=== PATIENT | female | born 1990 | race Caucasian/White ===

== ENCOUNTER 2024-03-03 09:27 | Emergency (ER) | payer MEDICAID, SELFPAY ==
[2024-03-03 09:35] VITALS: BMI 22.1
[2024-03-03 09:42] VITALS: BP 180/98; PULSE 110; RESP 19; TEMP 37.3; O2SAT 98
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
[2024-03-03 13:30] VITALS: BP 139/76; PULSE 99; RESP 19; TEMP 37.1; O2SAT 98
--- NOTE | 2024-03-03 13:53 | PC.NURSE ---
All restraints removed at this time. Patient up to bedside commode. Patient placed in gown and was provided with food and drink. Sitter remains observant.
[2024-03-03 14:07] LABS: HCG Qualitative,Urine Negative
[2024-03-03 14:17] LABS: Alcohol, Urine Negative (Negative); Amphetamine/Methamp Scrn,U Positive (Negative); Barbiturate Screen,Urine Negative (Negative); Benzodiazepines Screen,Urine Negative (Negative); Benzoylecgonine Screen, Ur Negative (Negative); Fentanyl Screen,Urine Negative (Negative); Opiate Screen,Urine Negative (Negative); THC Screen,Urine Negative (Negative)
--- NOTE | 2024-03-03 18:18 | PD.EDADDENDU ---
Emergency Room Addendum <Chanda Hidalgo - Last Filed: 03/03/24 18:20> Addendum Narrative: 1800: Care assumed from Dr. Millan, the previous shift emergency physician. Past medical, surgical, social and family history reviewed. Vitals and home medications reviewed. I will assume the care of the patient at this time, pending psychiatric placement, patient on a 5150 hold. The patient was placed in ED observation care at 03/03/2024 at 1800 hours. The patient was placed in ED observation care because of undifferentiated decompensated behavioral health evaluation, no behavioral health bed available. The patients past medical history, social history, and family history were reviewed. The plan of care will include serial examinations. Please refer to the emergency department record for history and examination.? While in ED observation the patient will have access to water, food, and personal hygiene. If the patient takes home medication(s), they will be continued in ED observation. Physical exam by me shows patient under no acute distress at this time. <Juan Fink MD - Last Filed: 03/04/24 05:33> Addendum Narrative: 1800: Care assumed from Dr. Millan, the previous shift emergency physician. Past medical, surgical, social and family history reviewed. Vitals and home medications reviewed. I will assume the care of the patient at this time, pending psychiatric placement, patient on a 5150 hold. The patient was placed in ED observation care at 03/03/2024 at 1800 hours. The patient was placed in ED observation care because of undifferentiated decompensated behavioral health evaluation, no behavioral health bed available. The patients past medical history, social history, and family history were reviewed. The plan of care will include serial examinations. Please refer to the emergency department record for history and examination.? While in ED observation the patient will have access to water, food, and personal hygiene. If the patient takes home medication(s), they will be continued in ED observation. Physical exam by me shows patient under no acute distress at this time. Overnight patient became extremely agitated, screaming, very disruptive, and a danger to self after she was not allowed to have a cigarette. She required chemical sedation. she has been sleeping without issue for the rest of my encounter. 0600: Signed out to italia GARVEY, Dr. Millan, pending crisis team assessment and final disposition.
[2024-03-03 18:21] VITALS: BP 126/67; PULSE 101; RESP 18; TEMP 37.1; O2SAT 99
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
[2024-03-03 20:30] VITALS: BP 127/80; PULSE 103; RESP 19; TEMP 37.3; O2SAT 98
[2024-03-03 22:37] VITALS: BP 134/89; PULSE 105; RESP 19; TEMP 36.9; O2SAT 96
[2024-03-04] MEDS: HALOPERIDOL LACT INJ 5 MG/ML VIAL IM ×2 (00:31→12:55)
[2024-03-04] MEDS: DiphenhydrAMINE INJ 50 MG/ML VIAL IM ×2 (00:31→12:55)
[2024-03-04] MEDS: LORazepam 2 MG/ML VIAL IM ×2 (00:31→12:48)
--- NOTE | 2024-03-04 05:39 | PC.NURSE ---
Went in room to discharge pt. Pt states she's not ready to leave and would like to speak to doctor about why she didn't get a chest XR bc she feels that she is not ok to go home. MD unavailable at the moment - will notify when he is. journeyman pipe fitter Orlin informed.
[2024-03-04 06:18] VITALS: BP 145/98; PULSE 115; RESP 18; TEMP 37.3; O2SAT 96
--- NOTE | 2024-03-04 06:26 | PC.NURSE ---
Pt up to restroom, accompanied by sitter. Steady gait observed.
--- NOTE | 2024-03-04 06:34 | EDNOTE_ITS ---
Emergency Room Addendum <Margaret Siddiqui - Last Filed: 03/04/24 10:17> Addendum Narrative: [address] Fink, the previous shift emergency physician. Past medical, surgical, social and family history reviewed. Vitals and home medications reviewed. Results and treatment plan discussed. The patient was placed in ED observation care at 0600 03/04/2024, pending [facility] facility placement. Please refer to the emergency department record for history and examination.? While in ED observation the pt will have access to water, food, and personal hygiene. If the pt takes home medication(s), they will be continued in ED observation. <Fletcher Millan MD - Last Filed: 03/04/24 10:19> Addendum Narrative: [address] Fink, the previous shift emergency physician. Past medical, surgical, social and family history reviewed. Vitals and home medications reviewed. Results and treatment plan discussed. The patient was placed in ED observation care at 0600 03/04/2024, pending LPS facility placement. Please refer to the emergency department record for history and examination.? While in ED observation the pt will have access to water, food, and personal hygiene. If the pt takes home medication(s), they will be continued in ED observation. The patient was signed out to me from at 6:00 this morning pending [facility] placement. The patient is on 5150 for suicidal ideation. She tested positive for methamphetamine. 10:18 AM, on March 04, 2024, I am being notified by jannette, director of social media marketing/mental health that the patient has been accepted at [facility] Dr. Mcelroy. The patient is stable for transfer by ambulance Diagnosis: Suicidal ideation Positive methamphetamine
--- NOTE | 2024-03-04 07:40 | PC.NURSE ---
report given from exhibits manager nurse joan. pt is on 5051 hold and pending placement. pt is now sleeping on [place] no distress noted. pt is responsive to verbal. pt was medicated earlier this am due to her behavior and harm to self and others. meal tray ordered by doctor wendy.
--- NOTE | 2024-03-04 08:06 | PC.CC ---
Addendum entered by Piotr Medellin II 03/04/24 13:32: Pt refusing to get on [facility] for transport. ASW attempted to intervene and meet with pt. Pt refused to engage with ASW. Pt began to become combative with staff, pt given Benadryl, Haldol and Ativan. Bedside RN Dena provided update to Susy with [facility]. 1321-ASW spoke with Susy with [facility], who states they will accept pt despite medication being given due to the distance pt will need to travel prior to arrival. Addendum entered by Piotr Medellin II 03/04/24 10:36: Pt accepted to [facility], Dr. Mcelroy, to [facility]. 1026-Call to [facility], Transport ETA 1230. PCS/FS and packet attached to pts chart. Bedside RN and ED provided updated. Original Note: Pt Ruth Harmon is a 33 yr old female, brought to ED on 03/03/24 by [employer] on 5150 hold for DTS. Pt reassessed and decision made to uphold 5150. Clinical packet sent to [facility] facilities on 03/03/24 with no accepting facility. Updated clinical packet sent out to LPS facilities this AM 03/04/24. 0809-Call from Alice with [facility] for Psychiatry-referral has been declined due to pts acuity, request that updated packet be sent in a few days to determine if pts acuity has resolved.
--- NOTE | 2024-03-04 08:22 | PC.NURSE ---
pt refused vs at this time.
--- NOTE | 2024-03-04 08:52 | PC.NURSE ---
Pt accepted to [facility] facility unit [place]. Glenny is the person who accepted transfer along with doctor Lilibeth. eta for transport unknown at this time. social service aware of facility acceptance and will set up transport.
[2024-03-04 11:30] VITALS: BP 114/78; PULSE 86; RESP 18; TEMP 36.6; O2SAT 95
--- NOTE | 2024-03-04 13:00 | PC.NURSE ---
pt refusing to leave with ems so doctor nancy ordered medication to help pt relax and not be so aggressive.
--- NOTE | 2024-03-04 13:13 | PC.NURSE ---
report given to Susy ching at [facility] unit. nurse aware that medication were given prior to leaving facility due to pt being aggressive refusing to leave facility with ems. nurse will resume care. pt left with ems
== END 2024-03-04 13:05 ==
PROVIDERS: Emergency Provider Emergency Medicine
DX: R45.851 Suicidal ideations (principal); F31.9 Bipolar disorder, unspecified
CPT/HCPCS: 80307; 80320; 81025; 96127; 96372; 99291; J1200; J1630; J2060; G0480

== ENCOUNTER 2024-04-07 12:57 | Emergency (ER) | payer MEDICAID, SELFPAY ==
--- NOTE | 2024-04-07 13:10 | PC.NURSE ---
WHILE ASKING PT QUESTIONS FOR [place] SCALE SHE REFUSED TO COMPLETE THE QUESTIONS. SO UNABLE TO COMPLETE FORM
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
--- NOTE | 2024-04-07 13:37 | PC.NURSE ---
DR LOPES AT BEDSIDE TO SEE PT
[2024-04-07] MEDS: HALOPERIDOL LACT INJ 5 MG/ML VIAL IM (14:04)
[2024-04-07] MEDS: DiphenhydrAMINE INJ 50 MG/ML VIAL IM (14:04)
[2024-04-07] MEDS: LORazepam 2 MG/ML VIAL IM (14:04)
--- NOTE | 2024-04-07 14:04 | PC.NURSE ---
PT ACTING ERRATIC AND YELLING AT STAFF. PT ATTEMPTING TO LEAVE AND BEGAN HITTING ROOM DOOR. CODE PAP[employer] CALLED. PT MEDICATED PER DOCTORS ORDERS
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
[2024-04-07 14:59] VITALS: BP 128/76; PULSE 100; RESP 18; TEMP 37.1; O2SAT 99
[2024-04-07 16:00] VITALS: BP 125/72; PULSE 78; RESP 16; TEMP 36.8; O2SAT 99
[2024-04-07 18:00] VITALS: BP 130/80; PULSE 85; RESP 16; TEMP 36.7
[2024-04-07 19:10] LABS: HCG Qualitative,Urine Negative
--- NOTE | 2024-04-07 19:13 | EDNOTE_ITS ---
Emergency Room Addendum Addendum Narrative: 1800: Care assumed from Dr. Millan, the previous shift emergency physician. Past medical, surgical, social and family history reviewed. Vitals and home medications reviewed. I will assume the care of the patient at this time, pending psychiatric placement, patient on a 5150 hold. The patient continues on ED observation because of undifferentiated decompensated behavioral health evaluation, no behavioral health bed available. The patients past medical history, social history, and family history were reviewed. The plan of care will include serial examinations. Please refer to the emergency department record for history and examination. While in ED observation the patient will have access to water, food, and personal hygiene. If the patient takes home medication(s), they will be continued in ED observation. Physical exam by me shows patient under no acute distress at this time. 0600: [facility], pending serial examinations and final disposition. MD Attestation MD Attestation Scribe Attestation: I, Lakshmi Hunt, am scribing for and in the presence of Dr. Clemens. Provider Notation: Although this document has been carefully reviewed, there may still be some phonetic and other typographical errors. These errors are purely grammatical due to imperfections in the software program and should not be construed in any way to compromise the substance of the patient's medical care during this visit.
[2024-04-07 21:16] LABS: Alcohol, Urine Negative (Negative); Amphetamine/Methamp Scrn,U Positive (Negative); Barbiturate Screen,Urine Negative (Negative); Benzodiazepines Screen,Urine Negative (Negative); Benzoylecgonine Screen, Ur Negative (Negative); Fentanyl Screen,Urine Negative (Negative); Opiate Screen,Urine Negative (Negative); THC Screen,Urine Positive (Negative)
--- NOTE | 2024-04-07 21:25 | PC.NURSE ---
Pt's blood drawn at this time. Pt provided with food and juice.
[2024-04-07 22:17] LABS: Basophils # (Auto) 0.1 Thou/mm3 (0.0-0.2); Basophils % (Auto) 1 % (0-2.5); Eosinophils # (Auto) 0.3 Thou/mm3 (0.0-0.5); Eosinophils % (Auto) 4 % (0-10); Hematocrit 33.2 % (36.0-46.0); Hemoglobin 11.5 g/dL (12.0-16.0); Immature Granulocytes % (Auto) 0 % (0-0); Immature Granulocytes Auto 0.01 Thou/mm3 (0.00-0.00); Lymphocytes # (Auto) 2.2 Thou/mm3 (1.0-4.8); Lymphocytes % (Auto) 31 % (10-50); Mean Corpuscular HGB Conc 34.6 g/dl (31.0-37.0); Mean Corpuscular Hemoglobin 29.3 pg (25.0-35.0); Mean Corpuscular Volume 85 fL (80-100); Monocytes # (Auto) 1.1 Thou/mm3 (0.0-0.8); Monocytes % (Auto) 16 % (0-12); Neutrophils # (Auto) 3.4 Thou/mm3 (1.8-7.7); Neutrophils % (Auto) 49 % (37-80); Nucleated Red Blood Cell % 0 /100 WBC (0); Platelet Count 263 Thou/mm3 (140-440); Red Blood Count 3.93 Miln/mm3 (4.00-5.20); White Blood Count 7.1 Thou/mm3 (3.6-11.0)
[2024-04-07 23:10] LABS: Acetaminophen < 2.0 mcg/mL (10.0-20.0); Alanine Aminotransferase 26 U/L (10-49); Albumin, Serum 3.8 gm/dL (3.5-5.0); Albumin/Globulin Ratio 1.6 (1.2-2.2); Alkaline Phosphatase 82 U/L (46-116); Anion Gap 8 (7-16); Aspartate Amino Transferase 47 U/L (0-34); BUN/Creatinine Ratio 15 Ratio (12-20); Blood Urea Nitrogen 9 mg/dL (9-23); Calcium (Corrected) 9.2 mg/dL (8.5-10.1); Carbon Dioxide 23.8 mMol/L (20.0-31.0); Chloride 109 mMol/L (98-107); Creatinine (Component) 0.6 mg/dL (0.6-1.3); Estimated Creatinine Clearance 116.7 mL/min (>60); Globulin 2.4 gm/dL (2.3-3.5); Glucose 82 mg/dL (74-106); Osmolality,Calculated 278 (275-295); Potassium 3.6 mMol/L (3.4-5.1); Salicylate < 3.0 mg/dL; Sodium 141 mMol/L (136-145); Thyroid Stimulating Hormone 1.27 uIU/mL (0.55-4.78); Total Protein 6.2 gm/dL (5.7-8.2); eGFR > 60 See Note
[2024-04-07 23:11] LABS: Free T4 (Free Thyroxine) 1.24 ng/dL (0.89-1.76)
[2024-04-08 04:00] VITALS: BP 116/75; PULSE 82; RESP 17; TEMP 36.8; O2SAT 98
--- NOTE | 2024-04-08 04:40 | PC.NURSE ---
Pt provided with snacks and water at this time. Pt calm and appropriate.
--- NOTE | 2024-04-08 06:00 | PD.EDADDENDU ---
Emergency Room Addendum <Margaret Siddiqui - Last Filed: 04/08/24 07:04> Addendum Narrative: 0600: Care assumed from Dr. Clemens, the previous shift emergency physician. Past medical, surgical, social and family history reviewed. Vitals and home medications reviewed. I will assume the care of the patient at this time, pending mental health evaluation. Please refer to the emergency department record for history and examination from initial visit.? <Fletcher Millan MD - Last Filed: 04/08/24 11:52> Addendum Narrative: 0600: Care assumed from Dr. Clemens, the previous shift emergency physician. Past medical, surgical, social and family history reviewed. Vitals and home medications reviewed. I will assume the care of the patient at this time, pending mental health evaluation. Please refer to the emergency department record for history and examination from initial visit. CBC is negative. CMP negative. Aspirin and Tylenol level are negative. test is negative. Tox screen is positive for methamphetamine and marijuana. 11:50 AM, I am being notified by the sr. social media & mobile manager/mental health Justen that the patient can be discharged home. The patient is alert awake oriented x 4 GCS of 15. Much more cooperative and much Calmer. And no delusional. No hallucination at this time. Diagnosis: Methamphetamine induced psychosis 5150 been cleared History of schizophrenia chronic Condition: Stable and improved DC instruction: Follow the instruction given you by the mental health instrument worker. Follow-up with your medical doctor also. Return to nearest ER if any problem.
[2024-04-08 07:35] VITALS: BP 114/73; PULSE 75; RESP 16; TEMP 36.9; O2SAT 98
--- NOTE | 2024-04-08 07:40 | PC.NURSE ---
provided pt with snack,
--- NOTE | 2024-04-08 08:24 | PC.NURSE ---
privided pt with breakfast tray, ate 100%, pt calm
[2024-04-08 10:49] VITALS: BP 117/72; PULSE 96; RESP 16; TEMP 37.3; O2SAT 96
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
--- NOTE | 2024-04-08 12:00 | PC.NURSE ---
PT CLEARED BY CLINICAL IMMUNOLOGIST FOR D/C. PT FED AND HYDRATED PRIOR TO D/C. BELONGINGS GIVEN BACK TO PT.
[2024-04-08 12:02] VITALS: BP 125/63; PULSE 65; RESP 18; TEMP 36.6; O2SAT 99
== END 2024-04-08 12:04 | disposition home or self-care (01) ==
PROVIDERS: Emergency Medicine; Emergency Provider Emergency Medicine; PCP Family Medicine
DX: R45.851 Suicidal ideations (principal); F20.9 Schizophrenia, unspecified; F31.9 Bipolar disorder, unspecified; F15.959 Other stimulant use, unspecified with stimulant-induced psychotic disorder, unspecified
CPT/HCPCS: 36415; 80053; 80307; 80320; 80329; 81025; 84439; 84443; 85025; 90839; 96127; 96372; 99284; J1200; J1630; J2060; G0480

== ENCOUNTER 2024-04-29 20:46 | Emergency (ER) | payer MEDICAID, SELFPAY ==
--- NOTE | 2024-04-29 21:39 | PD.EDPSYCH ---
ED Psych RME/HPI General Stated Complaint: 5149 Time Seen by Provider: 04/29/24 20:52 Arrival date/time: 04/29/24 20:46 RME / HPI RME / HPI Narrative: 33 yo female patient brought in by PD on 5150 hold. Patient screaming obscenities at police and staff, agitated, thrashing about. Related Data Home Medications ?Medication ?Instructions ?Recorded ?Confirmed hydroxyzine pamoate 50 mg capsule 50 mg PO BID #0 caps 10/17/15 (Vistaril) lamotrigine 150 mg tablet 150 mg PO BID #0 tabs 10/17/15 (Lamictal) venlafaxine 75 mg capsule,extended 75 mg PO QDAY ##0 10/17/15 release 24 hr (Effexor XR) zolpidem 10 mg tablet (Ambien) 10 mg PO HS #0 tabs 10/17/15 Previous Rx's ?Medication ?Instructions ?Recorded lorazepam 1 mg tablet 1 mg PO Q6HR PRN ANXIETY #10 tabs 10/17/15 Allergies Allergy/AdvReac Type Severity Reaction Status Date / Time No Known Allergies Allergy Verified 11/09/18 10:05 Course Orders Category Date Time Status DiphenhydrAMINE INJ [Benadryl Inj] Med 04/29/24 20:52 Discontinued 50 mg IM X1 ONE Haloperidol Lactate [Haldol Inj] Med 04/29/24 20:52 Discontinued 5 mg IM X1 ONE LORazepam [Ativan Inj] Med 04/29/24 20:52 Discontinued 2 mg IM X1 ONE Psych Medications / Prescriptions Medication administrations:: Medication Administration History Discontinued Medications Diphenhydramine HCl (Diphenhydramine Inj 50 Mg/Ml Vial) 50 mg IM X1 ONE Stop: 04/29/24 20:53 Haloperidol Lactate (Haloperidol Lact Inj 5 Mg/Ml Vial) 5 mg IM X1 ONE Stop: 04/29/24 20:53 Lorazepam (Lorazepam 2 Mg/Ml Vial) 2 mg IM X1 ONE Stop: 04/29/24 20:53 Discharge Plan Prescriptions/Referrals Prescriptions/Med Rec: No Action lamotrigine [Lamictal] 150 MG tablet 150 mg PO BID Qty: 0 venlafaxine [Effexor XR] 75 MG capsule,extended release 24hr 75 mg PO QDAY Qty: 0 hydroxyzine pamoate [Vistaril] 50 MG capsule 50 mg PO BID Qty: 0 zolpidem [Ambien] 10 MG tablet 10 mg PO HS Qty: 0 lorazepam 1 MG tablet 1 mg PO Q6HR PRN (Reason: ANXIETY) Qty: 10 0RF Patient/Caregiver Discharge Instructions Print Language: Israeli
[2024-04-29] MEDS: LORazepam 2 MG/ML VIAL IM (21:46)
[2024-04-29] MEDS: DiphenhydrAMINE INJ 50 MG/ML VIAL IM (21:46)
[2024-04-29] MEDS: HALOPERIDOL LACT INJ 5 MG/ML VIAL IM (21:46)
[2024-04-29 21:54] VITALS: BP 134/81; RESP 18; O2SAT 97
[2024-04-29 22:16] VITALS: BP 134/81; PULSE 99; RESP 18; O2SAT 97
--- NOTE | 2024-04-29 22:30 | PC.NURSE ---
Pt requesting to wait until medication to take effect, before getting blood
--- NOTE | 2024-04-29 23:01 | PD.EDADDENDU ---
Emergency Room Addendum Addendum Narrative: 2300: Care assumed from Dr. Wong. Past medical, surgical, social and family history reviewed. Vitals and home medications reviewed. Results and treatment plan discussed. I will assume the care of the patient at this time and will follow the patient, pending medical clearance for crisis evaluation. Please refer to the emergency department record for history and examination from initial visit. OBSERVATION NOTE: The patient was placed in ED observation care at 04/29/24 at 2300 hours. The patient was placed in ED observation care because of pending medical clearance for crisis evaluation. The patients past medical history, social history, and family history were reviewed. The plan of care will include serial examinations. 0600: Care signed out to the next oncoming provider. Past medical, surgical, social and family history reviewed. Vitals and home medications reviewed. Results and treatment plan discussed. They will assume the care of the patient at this time and will follow the patient, pending medical clearance for crisis evaluation.
[2024-04-30 04:56] VITALS: BP 117/81; PULSE 88; RESP 18; TEMP 36.7; O2SAT 96
[2024-04-30 05:41] LABS: Alcohol, Blood Medical < 3.0 mg/dL (0-10.0)
[2024-04-30 06:31] LABS: HCG,Qualitative Serum Negative
--- NOTE | 2024-04-30 07:15 | PC.NURSE ---
REPORT RECEIVED AT THIS TIME; PER REPORT, PT HERE FOR 5150 DTS; PT FOUND BY [address] BY PD YELLING THAT SHE WANTED TO KILL HERSELF. PT RECEIVED BENADRYL, LORAZEPAM, AND HALDOL LAST NIGHT; PT ALLOWED ME TO GIVE IM MEDS BUT WAS VERBALLY HOSTILE. PT HAS BEEN SLEEPING EVER SINCE. PMH OF SI IN THE PAST. PT SLEEPING IN BED WITH NO ACUTE DISTRESS NOTED AT THIS TIME.
[2024-04-30 07:45] VITALS: BP 121/83; PULSE 93; RESP 18; TEMP 36.3; O2SAT 95
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
--- NOTE | 2024-04-30 08:14 | PC.SS ---
Addendum entered by LUCA Mendoza 04/30/24 17:28: Late entry: ASW and Dr. Hauser met with the patient as she was declining to engage with solid waste collection worker. ASW to speak with the patient alone. Patient began to engage with ASW and denied SI and HI. Patient also denied audio and visual hallucination. Patient denied history of mental health and denying substance use. Patient reports being independent with ambulation. Patient had meal while in the ED and was able to use facilities. Patient reported she wanted to stay to continue sleeping, patient was explained she cannot remain in the ED. After clinical consultation, with care technical director, Rosy Spivey LCSW, it was decided the patient does not meet criteria for 5150 hold. Patient informed she could return to the community. Declined resources or referral at this time. Addendum entered by LUCA Mendoza 04/30/24 15:25: Per bed side nurse, no copy of 5150 hold in patient chart. Contacted [employer] and spoke with dispatch Chuy who informed patient was brought in for a mental health evaluation but was not placed on [address] [employer] Hauser. Addendum entered by LUCA Mendoza 04/30/24 10:00: ASW made contact with the patient at bed side. Patient appeared to be restless. ASW introduced self, role and reason for contact. During this encounter the patient covered self with blanket, covering face. ASW asked the patient what brought her into the ED and the patient stated I don't know . ASW attempted multiple times to engage the patient, however patient continued covered by blanket, did not wish to engage and continued sleeping. Original Note: solid waste collection worker informed by charge nurse that the patient is pending medical clearance for mental health evaluation. Per MD, the patient was brought in last night by [employer] on a 5150 Hold.
[2024-04-30 10:07] VITALS: BP 112/70; PULSE 100; RESP 18; TEMP 37; O2SAT 97
[2024-04-30 13:19] VITALS: BP 114/79; PULSE 89; RESP 15; TEMP 36.8; O2SAT 96
--- NOTE | 2024-04-30 13:34 | PC.NURSE ---
attempted to wake up pt to collect UA, pt refusing to provide sample.
--- NOTE | 2024-04-30 15:00 | PC.NURSE ---
RN AT BEDSIDE; PT INFORMED AGAIN THAT URINE SAMPLE IS NEEDED FROM PT. PT OFFERED BEDPAN, PT STATED, NO, I DON'T WANT TO. PT OFFERED STRAIGHT CATH TO OBTAIN URINE SAMPLE; PT REPLIED, WHAT? NO. MADE AWARE.
[2024-04-30 15:44] VITALS: BP 117/80; PULSE 102; RESP 17; TEMP 36.8; O2SAT 97
== END 2024-04-30 16:03 | disposition home or self-care (01) ==
PROVIDERS: Emergency Medicine; Emergency Provider Emergency Medicine
DX: R45.1 Restlessness and agitation (principal); F15.10 Other stimulant abuse, uncomplicated
CPT/HCPCS: 36415; 80307; 80320; 84703; 96127; 96372; 99284; J1200; J1630; J2060; G0480

== ENCOUNTER 2024-05-15 15:33 | Emergency (ER) | payer MEDICAID, SELFPAY ==
--- NOTE | 2024-05-15 15:37 | PD.EDADULT ---
ED General RME/HPI General Chief complaint: Suicidal Stated complaint: MENTAL EVAL Time Seen by Provider: 05/15/24 15:36 Arrival date/time: 05/15/24 15:33 CC: 5150 HPI patient presents to the ER via EMS and PD who state the patient received a call, patient was boisterous and has blood on her skin, PD per determine the patient had been poking herself in the scalp tweezers, patient is awake and consider Versed and with sternal rub. PD and EMS state that she is pretending to be asleep. PD reports the patient admitting that she was suicidal. At 1653 patient became belligerent obnoxious once moved into a room. At this time the patient is a potential risk for staff. Will order a B-52 for the patient to become more calm. Related Data Home Medications ?Medication ?Instructions ?Recorded ?Confirmed hydroxyzine pamoate 50 mg capsule 50 mg PO BID #0 caps 10/17/15 (Vistaril) lamotrigine 150 mg tablet 150 mg PO BID #0 tabs 10/17/15 (Lamictal) venlafaxine 75 mg capsule,extended 75 mg PO QDAY ##0 10/17/15 release 24 hr (Effexor XR) zolpidem 10 mg tablet (Ambien) 10 mg PO HS #0 tabs 10/17/15 Previous Rx's ?Medication ?Instructions ?Recorded lorazepam 1 mg tablet 1 mg PO Q6HR PRN ANXIETY #10 tabs 10/17/15 Allergies Allergy/AdvReac Type Severity Reaction Status Date / Time No Known Allergies Allergy Verified 11/09/18 10:05 Review of Systems Review of Systems Narrative Review of Systems: Unable to assess secondary to patient not being cooperative Past Medical History Past Medical History CARDIAC: Negative Congestive Heart Failure RESPIRATORY: Negative Chronic Obstructive Pulmonary Disease (COPD) GENITOURINARY: Negative Renal Disease ENDOCRINE: Negative Diabetes Mellitus Type 1 or Diabetes Mellitus Type 2 PSYCHO/SOCIAL: Positive Bipolar Disorder, Depression, Anxiety, Self-Mutilation and Post Traumatic Stress Disorder Social History SMOKING STATUS: Unknown if ever smoked SUBSTANCE USE: marijuana and methamphetamine ED Exam Narrative Physical exam: [General: Appears not in any acute distress Head normocephalic HEENT: Eyes pupils are PERRLA EOMs are intact mouth pink dry membranes uvula is midline swallow symmetrical phonation is normal. All the subsystems of HEENT are within acceptable limits Neck is supple nontender no JVD Chest equal chest rise nontender to palpation Respiratory: Clear to auscultation no wheezes crackles or rubs CV: Rate rhythm is regular no murmurs rubs or clicks Back: No CVA tenderness no spinous process tenderness from cervical spine thoracic and lumbar spine Skin: Abrasion to the right parietal scalp but no full-thickness lacerations. Otherwise skin appears intact no petechiae rash induration ulceration or crepitus Extremities: Moving all extremity against resistance cap refill less than 2 seconds neurosensory intact Neuro: Awake alert oriented x2, person and place, Glascow coma 15 no focal deficits] Course Quality Measures none Orders Category Date Time Status 4 HR Behavioral Restraints Q15M Care 05/15/24 16:45 Completed 4 HR Behavioral Restraints Q15M Care 05/15/24 20:40 Completed CBC Stat Lab 05/15/24 17:06 Completed CMP [Comprehensive Metabolic Panel] Stat Lab 05/15/24 17:06 Completed DiphenhydrAMINE INJ [Benadryl Inj] Med 05/15/24 16:52 Discontinued 50 mg IM X1 ONE Haloperidol Lactate [Haldol Inj] Med 05/15/24 16:52 Discontinued 5 mg IM X1 ONE LORazepam [Ativan Inj] Med 05/15/24 16:52 Discontinued 2 mg IM X1 ONE Vital Signs Vital signs: Vital Signs Temperature 98.7 F 05/15/24 15:38 Pulse Rate 102 H 05/15/24 15:38 Respiratory Rate 18 05/15/24 15:38 Blood Pressure 143/96 H 05/15/24 15:38 Pulse Oximetry (%) 97 05/15/24 15:38 Oxygen Delivery Method Room Air 05/15/24 15:38 [facility] Patient data External records reviewed:: [facility] previous records and EMS form Clinical information provided by:: patient, EMS and law enforcement Social determinants that could affect healthcare access:: none Patient has the following chronic illnesses:: Severe depression How is presenting disease/condition affected by chronic disease/condition?: caused by Evaluation data The following diagnostics were reviewed and interpreted by me:: other (specify) Lab and/or radiology exams considered but not ordered:: See MDM Interpretation Summary: Suicidal ideation Medications Medications considered but not ordered:: None Medication administrations:: Medication Administration History Discontinued Medications Diphenhydramine HCl (Diphenhydramine Inj 50 Mg/Ml Vial) 50 mg IM X1 ONE Stop: 05/15/24 16:53 Last Admin: 05/15/24 17:06 Dose: 50 mg Documented By: KM Haloperidol Lactate (Haloperidol Lact Inj 5 Mg/Ml Vial) 5 mg IM X1 ONE Stop: 05/15/24 16:53 Last Admin: 05/15/24 17:07 Dose: 5 mg Documented By: KM Lorazepam (Lorazepam 2 Mg/Ml Vial) 2 mg IM X1 ONE Stop: 05/15/24 16:53 Last Admin: 05/15/24 17:07 Dose: 2 mg Documented By: KM None Consultations Consultation(s) initiated? (list below): No Diagnosis Differential Diagnosis ED Complaint MDM: Aggressive behavior suicidal ideation methamphetamine abuse Most likely diagnosis given after review of the tests above:: Aggressive behavior suicidal ideation methamphetamine abuse Admission Indicated Admission indicated?: not indicated Explain why admission is indicated or not indicated:: Stable for outpatient follow-up Admission Request Was there a request for admission?: No Disposition Plan Disposition Plan: Discharge Discharge Attestation Discharge Attestation: The patient and all family members were given an opportunity to ask questions and understood the discharge instructions. Discharge instructions specifically effects, indications for sooner follow up or return to the emergency department, and the expected course of current diagnosis. Patient condition: Stable Medical Decision Making Differential Diagnosis Differential Diagnosis: Aggressive behavior suicidal ideation methamphetamine abuse Lab Data 05/15/24 17:06 05/15/24 17:06 Labs: Lab Results 05/15/24 Range/Units 17:06 WBC 19.3 H (3.6-11.0) Thou/mm3 RBC 4.68 (4.00-5.20) Miln/mm3 Hgb 13.6 (12.0-16.0) g/dL Hct 39.9 (36.0-46.0) % MCV 85 (80-100) fL MCH 29.1 (25.0-35.0) pg MCHC 34.1 (31.0-37.0) g/dl RDW Std Deviation 41.4 (36.4-46.3) fL Plt Count 417 D (140-440) Thou/mm3 Neut % (Auto) 69 (37-80) % Lymph % (Auto) 22 (10-50) % [place] % (Auto) 8 (0-12) % Eos % (Auto) 1 (0-10) % Baso % (Auto) 0 (0-2.5) % Neut # (Auto) 13.3 H (1.8-7.7) Thou/mm3 Lymph # (Auto) 4.2 (1.0-4.8) Thou/mm3 [place] # (Auto) 1.6 H (0.0-0.8) Thou/mm3 Eos # (Auto) 0.1 (0.0-0.5) Thou/mm3 Baso # (Auto) 0.1 (0.0-0.2) Thou/mm3 Immature Gran # (Auto) 0.06 H (0.00-0.00) Thou/mm3 Absolute Nucleated RBC 0.00 (0.00-0.00) Thou/mm3 Immature Gran % 0 (0-0) % Nucleated RBC % 0 (0) /100 WBC Sodium 141 (136-145) mMol/L Potassium 4.3 (3.4-5.1) mMol/L Chloride 105 (98-107) mMol/L Carbon Dioxide 18.1 L (20.0-31.0) mMol/L Anion Gap 18 H (7-16) BUN 9 (9-23) mg/dL Creatinine 0.9 (0.6-1.3) mg/dL Estim Creat Clear Calc Not Performed. eGFR > 60 (60 - ) See Note BUN/Creatinine Ratio 10 L (12-20) Ratio Glucose 115 H (74-106) mg/dL Calculated Osmolality 280 (275-295) Calcium 9.4 (8.3-10.6) mg/dL Corrected Calcium 9.4 (8.5-10.1) mg/dL Total Bilirubin 2.0 H (0.3-1.2) mg/dL AST 69 H (0-34) U/L ALT 39 (10-49) U/L Alkaline Phosphatase 92 (46-116) U/L Total Protein 7.5 (5.7-8.2) gm/dL Albumin 4.3 (3.5-5.0) gm/dL Globulin 3.2 (2.3-3.5) gm/dL Albumin/Globulin Ratio 1.3 (1.2-2.2) Discharge Plan Plan Patient Disposition: [facility] Disposition Comment: MEJIA CORDON Prescriptions/Referrals Prescriptions/Med Rec: No Action lamotrigine [Lamictal] 150 MG tablet 150 mg PO BID Qty: 0 venlafaxine [Effexor XR] 75 MG capsule,extended release 24hr 75 mg PO QDAY Qty: 0 hydroxyzine pamoate [Vistaril] 50 MG capsule 50 mg PO BID Qty: 0 zolpidem [Ambien] 10 MG tablet 10 mg PO HS Qty: 0 lorazepam 1 MG tablet 1 mg PO Q6HR PRN (Reason: ANXIETY) Qty: 10 0RF Referrals: No Primary/Family,Physician [Primary Care Provider] - In 1 week Problem List Clinical Impression: Suicidal ideation Patient/Caregiver Discharge Instructions Print Language: Kinyarwanda Stand Alone Forms: Dena Award Info., Patient Portal Info Letter PA/ELECTROMYOGRAPHIC TECHNICIAN Supervising Physician PA/ELECTROMYOGRAPHIC TECHNICIAN Supervising Physician: Ricky Cage ENP
[2024-05-15 15:38] VITALS: BP 143/96; PULSE 102; RESP 18; TEMP 37.1; O2SAT 97
--- NOTE | 2024-05-15 16:20 | PC.CC ---
Patient is a 33 year-old female BIBA on a 5150-hold for Danger to Self by [employer] Officer Deon. It was reported by EMS that the patient had caused multiple lacerations to herself with the intention of killing her self.
--- NOTE | 2024-05-15 16:40 | PC.NURSE ---
PT REFUSED TO ANSWER QUESTIONS. UNABLE TO COMPLETE COLUMBIA SUICIDE SCALE
--- NOTE | 2024-05-15 16:45 | PC.NURSE ---
PT BEGAN YELLING AND THREATENING STAFF STATING I'M GOING TO KILL YOU IF YOU DON'T LET ME LEAVE , I'M GOING TO PUNCH YOU IN YOUR FACE . RICHA WEINSTEIN WAS CALLED. WHILE TRYING TO CALM PT DOWN PT LEANED OVER AND GRABBED THIS NURSES GLASSES AND SCRATCH THIS NURSES FACE/NECK. SECURITY AND STAFF THEN PLACED PT ONTO GURNEY AND PT WAS PLACED ON 4 POINT RESTRAINTS FOR STAFF SAFETY. PT CONTINUED TO YELL AND THREATEN STAFF. NEW ORDERS RECEIVED FOR MEDICATIONS AT THIS TIME
[2024-05-15] MEDS: DiphenhydrAMINE INJ 50 MG/ML VIAL IM (17:06)
[2024-05-15] MEDS: HALOPERIDOL LACT INJ 5 MG/ML VIAL IM (17:07)
[2024-05-15] MEDS: LORazepam 2 MG/ML VIAL IM (17:07)
[2024-05-15 17:16] LABS: Basophils # (Auto) 0.1 Thou/mm3 (0.0-0.2); Basophils % (Auto) 0 % (0-2.5); Eosinophils # (Auto) 0.1 Thou/mm3 (0.0-0.5); Eosinophils % (Auto) 1 % (0-10); Hematocrit 39.9 % (36.0-46.0); Hemoglobin 13.6 g/dL (12.0-16.0); Immature Granulocytes % (Auto) 0 % (0-0); Immature Granulocytes Auto 0.06 Thou/mm3 (0.00-0.00); Lymphocytes # (Auto) 4.2 Thou/mm3 (1.0-4.8); Lymphocytes % (Auto) 22 % (10-50); Mean Corpuscular HGB Conc 34.1 g/dl (31.0-37.0); Mean Corpuscular Hemoglobin 29.1 pg (25.0-35.0); Mean Corpuscular Volume 85 fL (80-100); Monocytes # (Auto) 1.6 Thou/mm3 (0.0-0.8); Monocytes % (Auto) 8 % (0-12); Neutrophils # (Auto) 13.3 Thou/mm3 (1.8-7.7); Neutrophils % (Auto) 69 % (37-80); Nucleated Red Blood Cell % 0 /100 WBC (0); Platelet Count 417 Thou/mm3 (140-440); RDW Standard Deviation 41.4 fL (36.4-46.3); Red Blood Count 4.68 Miln/mm3 (4.00-5.20); White Blood Count 19.3 Thou/mm3 (3.6-11.0)
[2024-05-15 17:20] VITALS: BMI 20.3
[2024-05-15 17:30] LABS: Alanine Aminotransferase 39 U/L (10-49); Albumin, Serum 4.3 gm/dL (3.5-5.0); Albumin/Globulin Ratio 1.3 (1.2-2.2); Alkaline Phosphatase 92 U/L (46-116); Anion Gap 18 (7-16); Aspartate Amino Transferase 69 U/L (0-34); BUN/Creatinine Ratio 10 Ratio (12-20); Blood Urea Nitrogen 9 mg/dL (9-23); Calcium 9.4 mg/dL (8.3-10.6); Calcium (Corrected) 9.4 mg/dL (8.5-10.1); Carbon Dioxide 18.1 mMol/L (20.0-31.0); Chloride 105 mMol/L (98-107); Creatinine (Component) 0.9 mg/dL (0.6-1.3); Globulin 3.2 gm/dL (2.3-3.5); Glucose 115 mg/dL (74-106); Osmolality,Calculated 280 (275-295); Potassium 4.3 mMol/L (3.4-5.1); Sodium 141 mMol/L (136-145); Total Protein 7.5 gm/dL (5.7-8.2); eGFR > 60 See Note
--- NOTE | 2024-05-15 23:07 | PD.EDADDENDU ---
Emergency Room Addendum <Caren Waite - Last Filed: 05/15/24 23:09> Addendum Narrative: 2300: Care assumed from Ricky Cage NP. Past medical, surgical, social and family history reviewed. Vitals and home medications reviewed. Results and treatment plan discussed. I will assume the care of the patient at this time and will follow the patient, pending crisis evaluation. Please refer to the emergency department record for history and examination from initial visit. OBSERVATION NOTE: The patient was placed in ED observation care at 05/15/24 at 2300 hours. The patient was placed in ED observation care because of pending crisis evaluation. The patients past medical history, social history, and family history were reviewed. The plan of care will include serial examinations. 0600: Care signed out to the next oncoming provider. Past medical, surgical, social and family history reviewed. Vitals and home medications reviewed. Results and treatment plan discussed. They will assume the care of the patient at this time and will follow the patient, pending crisis evaluation. At this time, observation has ended. <Alfredo Hunt - Filed: 05/16/24 04:47> Addendum Narrative: 2300: Care assumed from Ricky Cage NP. Past medical, surgical, social and family history reviewed. Vitals and home medications reviewed. Results and treatment plan discussed. I will assume the care of the patient at this time and will follow the patient, pending crisis evaluation. Please refer to the emergency department record for history and examination from initial visit. OBSERVATION NOTE: The patient was placed in ED observation care at 05/15/24 at 2300 hours. The patient was placed in ED observation care because of pending crisis evaluation. The patients past medical history, social history, and family history were reviewed. The plan of care will include serial examinations. 0600: Care signed out to the next oncoming provider. Past medical, surgical, social and family history reviewed. Vitals and home medications reviewed. Results and treatment plan discussed. They will assume the care of the patient at this time and will follow the patient, pending crisis evaluation. At this time, observation has ended. Attestation <Alfredo Hunt - Filed: 05/16/24 04:47> Attestation Scribmadhav Attestation: I, Lakshmi Hunt, am scribing for and in the presence of Dr. Wolfe. Provider Notation: Although this document has been carefully reviewed, there may still be some phonetic and other typographical errors. These errors are purely grammatical due to imperfections in the software program and should not be construed in any way to compromise the substance of the patient's medical care during this visit.
--- NOTE | 2024-05-16 00:08 | PC.NURSE ---
Attempted to complete [place] Scale at this time. Unable to complete as pt is refusing to answer questions at this time
[2024-05-16 05:38] VITALS: BP 140/87; PULSE 79; RESP 17; O2SAT 97
--- NOTE | 2024-05-16 05:39 | PC.NURSE ---
Attempted to complete [place] Scale again at this time and pt refused to answer questions.
--- NOTE | 2024-05-16 08:05 | PC.CC ---
Patient is a33 year-old female who was BIBA on a 5150-hold for Danger to Self by [place] [employer] Officer Deon. It was reported that patient was stabbing herself and making suicidal statements. ASW, Jodie made face to face contact with the patient to complete mental health evaluation. Patient presented as unkempt and disheveled with her hair matted and dirt on her hands. Patient has recently become unhoused. Patient would not engage with ASW for initial assessment. Patient made brief eye contact with ASW then proceeded to cover her face with sheet. Per chart review, patient has a history of substance use and mental health history Bipolar and Schizophrenia. Patient is not connected to outpatient mental health services. Patient declined to provide urine for toxicology screening. ASW to gain collateral as patient would not provide consent. Upon clinical consultation with PLUMBING HARDWARE ASSEMBLER, Shakila Rodriguez patient's 5150-hold will be upheld for Danger to Self and Gravely Disabled. ASW provided update of discharge plan to LPS facility to Dr. Fink, boat ride operator Erica, and bedside JAIDEN Saavedra. ASW to send referral to LPS facility via [employer].
--- NOTE | 2024-05-16 08:14 | PD.EDADDENDU ---
Emergency Room Addendum Addendum Narrative: 0600: Care assumed from Dr. Wolfe, the previous shift emergency physician. Past medical, surgical, social and family history reviewed. Vitals and home medications reviewed. I will assume the care of the patient at this time, pending mental health evaluation. Please refer to the emergency department record for history and examination from initial visit.?The following addendum documentation note is intended to reflect any pending information, findings, or radiology results not included in the patient?s initial chart. Patient has been evaluated by ASW and placed on a 5150 hold pending LPS facility placement. 1005: Patient has been accepted by Dr. Mcelroy at [facility]. EMS p/u 12:30.
--- NOTE | 2024-05-16 09:00 | PC.NURSE ---
Beni from [facility] called requesting UA testing; prior to accept patient.
--- NOTE | 2024-05-16 10:08 | PC.CC ---
Patient was accepted into [facility] [place] [facility], by Dr. Mcelroy. ASW provided update of discharge plan to Dr. Fink, employment agency manager Shana, and bedside RN Quentin. Nurse to Nurse [phone] ex. [phone]. ASW to arranged transportation.
[2024-05-16 11:18] VITALS: BP 134/75; PULSE 115; RESP 18; TEMP 36.4; O2SAT 98
--- NOTE | 2024-05-16 11:27 | PC.NURSE ---
UNABLE TO PERFORM COOLUMBIA SCALE DUE TO PATIENT BEING UNCOOPERATIVE AND REFUSING TO ANSWER QUESTIONS.
--- NOTE | 2024-05-16 12:45 | PC.NURSE ---
REPORT GIVEN TO SHEILA HWANG AT [facility].
== END 2024-05-16 12:29 ==
LOC: SERX 16:28
PROVIDERS: Registered Nurse General Practice; Emergency Provider Emergency Medicine
DX: Z04.6 Encounter for general psychiatric examination, requested by authority (principal); R45.851 Suicidal ideations; Z75.1 Person awaiting admission to adequate facility elsewhere; Z78.1 Physical restraint status
CPT/HCPCS: 36415; 80053; 80307; 80320; 81001; 81025; 85025; 90839; 96372; 99285; J1200; J1630; J2060; G0480

== ENCOUNTER 2024-06-07 09:58 | Emergency (ER) | payer MEDICAID, SELFPAY ==
[2024-06-07 10:01] VITALS: BP 123/81; PULSE 90; RESP 18; TEMP 36.6; O2SAT 97
[2024-06-07 10:02] VITALS: BMI 21.2
[2024-06-07 11:23] VITALS: PULSE 93; TEMP 36.7; O2SAT 97
--- NOTE | 2024-06-07 11:29 | PC.CC ---
Patient was BIB-[employer] on a 5150-hold for Danger to Self. Patient will have a mental health evaluation upon being medically cleared.
--- NOTE | 2024-06-07 11:31 | PD.EDPSYCH ---
ED Psych RME/HPI General Chief Complaint: Psychiatric Symptoms Stated Complaint: MEDICAL CLEARANCE Time Seen by Provider: 06/07/24 11:26 Arrival date/time: 06/07/24 09:58 RME / HPI RME / HPI Narrative: 33-year-old female patient with significant history of mental disorder, homeless, was brought in by law enforcement for psychiatric symptoms. Apparently patient was in the [employer] and hitting her head on the glass door because nobody is giving her a hvac/r service technician. She was mad and lost her temper. Police was involved, and patient was trying to resist arrest. While in the lobby patient is getting more upset, patient is refusing vital signs. Patient is telling the scada operator that she is suicidal. [facility] and patient was brought back to us. On my initial evaluation patient is conversant follows simple commands. Related Data Home Medications ?Medication ?Instructions ?Recorded ?Confirmed hydroxyzine pamoate 50 mg capsule 50 mg PO BID #0 caps 10/17/15 (Vistaril) lamotrigine 150 mg tablet 150 mg PO BID #0 tabs 10/17/15 (Lamictal) venlafaxine 75 mg capsule,extended 75 mg PO QDAY ##0 10/17/15 release 24 hr (Effexor XR) zolpidem 10 mg tablet (Ambien) 10 mg PO HS #0 tabs 10/17/15 Previous Rx's ?Medication ?Instructions ?Recorded lorazepam 1 mg tablet 1 mg PO Q6HR PRN ANXIETY #10 tabs 10/17/15 Allergies Allergy/AdvReac Type Severity Reaction Status Date / Time No Known Allergies Allergy Verified 11/09/18 10:05 Review of Systems Review of Systems Narrative Review of Systems: Review of system reviewed and within normal limits except mentioned in HPI ED Exam Narrative Physical exam: VITAL SIGNS: Reviewed. GENERAL APPEARANCE: Alert and interactive, follows commands, no acute distress,, unkept HEAD AND FACE: Non-traumatic. ENT: PERRL, pink conjunctivitis, eyelid no trauma, Mucous membrane moist. NECK: Supple, nontender, no nuchal rigidity. CHEST: No tenderness, no crepitus, no paradoxical movement, no retractions. LUNGS: Clear, well ventilated, symmetric, no rales, no wheezing, no ronchi, no stridor, good breath sounds bilaterally. HEART: Regular rate, regular rhythm, no murmur, no gallops. ABDOMEN: Soft, positive bowel sounds, nondistended, no guarding, nontender, no rebound, no masses, RECTAL: Deferred. GENITAL: Deferred. NEUROLOGICAL: Gross motor function intact sensory function intact, Appropriate for age. MUSCULOSKELETAL: low back nontender, full range of motion. EXTREMITIES: Nontender, full range of motion. SKIN: Color pink, dry, no rash, no lacerations, no abrasions, no contusions. LYMPHATICS: Deferred. Course Quality Measures none Orders Category Date Time Status Diet Regular Diet 06/07/24 Dinner Active Acetaminophen Stat Lab 06/07/24 11:26 Ordered Alcohol, Blood Medical Stat Lab 06/07/24 11:26 Ordered Basic Metabolic Panel Stat Lab 06/07/24 11:26 Ordered CBC Stat Lab 06/07/24 11:26 Ordered Drug Screen,Urine Stat Lab 06/07/24 11:33 Completed HCG Qualitative,Urine Stat Lab 06/07/24 11:33 Completed Salicylate Stat Lab 06/07/24 11:26 Ordered Urinalysis Stat Lab 06/07/24 11:33 Completed Vital Signs Vital signs: Vital Signs Temperature 97.9 F 06/07/24 10:01 Pulse Rate 90 06/07/24 10:01 Respiratory Rate 18 06/07/24 10:01 Blood Pressure 123/81 06/07/24 10:01 Pulse Oximetry (%) 97 06/07/24 10:01 Oxygen Delivery Method Room Air 06/07/24 10:01 Psych MDM Narrative MDM Narrative:: 33-year-old female patient with significant history of mental disorder, homeless, was brought in by law enforcement for psychiatric symptoms. Apparently patient was in the [employer] and hitting her head on the glass door because nobody is giving her a hvac/r service technician. She was mad and lost her temper. Police was involved, and patient was trying to resist arrest. While in the lobby patient is getting more upset, patient is refusing vital signs. Patient is telling the scada operator that she is suicidal. [facility] and patient was brought [facility] to us. On my initial evaluation patient is conversant follows simple commands. Patient pending reeval by clinical social worker Care transferred to Dr. Jain for final disposition Patient data External records reviewed:: None Clinical information provided by:: patient Social determinants that could affect healthcare access:: substance use Patient has the following chronic illnesses:: Schizophrenia How is presenting disease/condition affected by chronic disease/condition?: exacerbated by Evaluation data The following diagnostics were reviewed and interpreted by me:: lab results Lab and/or radiology exams considered but not ordered:: None Interpretation Summary: Patient positive for meth Medications / Prescriptions Medications or Prescriptions considered but not ordered:: None Medication administrations:: None Consultations Consultation(s) initiated? (list below): No Diagnosis Psych Differential Diagnosis: acute psychosis and chronic schizophrenia Most likely diagnosis given after review of the tests above:: Chronic schizophrenia, homelessness Admission Indicated Admission indicated?: not indicated Admission Request Was there a request for admission?: No Disposition Plan Disposition Plan: other (specify) Discharge Attestation Discharge Attestation: Pending final disposition Discharge Plan Prescriptions/Referrals Prescriptions/Med Rec: No Action lamotrigine [Lamictal] 150 MG tablet 150 mg PO BID Qty: 0 venlafaxine [Effexor XR] 75 MG capsule,extended release 24hr 75 mg PO QDAY Qty: 0 hydroxyzine pamoate [Vistaril] 50 MG capsule 50 mg PO BID Qty: 0 zolpidem [Ambien] 10 MG tablet 10 mg PO HS Qty: 0 lorazepam 1 MG tablet 1 mg PO Q6HR PRN (Reason: ANXIETY) Qty: 10 0RF Referrals: No Primary/Family,Physician [Primary Care Provider] - In 1 week Problem List Clinical Impression: Chronic schizophrenia Patient/Caregiver Discharge Instructions Print Language: Sierra Leonean
[2024-06-07 11:45] LABS: Collection Type, Urine Clean Catch
--- NOTE | 2024-06-07 11:45 | PC.NURSE ---
LAB AT BEDSIDE ATTEMPTING TO DRAW BLOOD, PATIENT REFUSING. PATIENT AGITATED AND STARTED YELLING, WATER TAXI FERRY OPERATOR AT BEDSIDE, PATIENT REQUESTING FOOD. PATIENT MADE AWARE THAT WHEN SHE CALMS DOWN SHE WILL BE PROVIDED WITH FOOD REQUESTED BY WATER TAXI FERRY OPERATOR. SITTER REMAINS AT BEDSIDE.
[2024-06-07 11:54] LABS: Bilirubin,Urine Negative (Negative); Blood,Urine Negative (Negative); Clarity,Urine Turbid (Clear/Hazy); Color,Urine Lt-Yellow (Lt Yel-Yel); Glucose, Urine Negative (Negative); Ketones,Urine Negative (Negative); Leukocyte Esterase,Urine Negative (Negative); Nitrite,Urine Negative (Negative); Protein,Urine Negative (Neg - Trace); RBC,Urine 1 /hpf (0-3); Specific Gravity,Urine 1.019 (1.001-1.035); Squamous Epithelial Cell,Urine 12 /hpf (0-5); Urobilinogen,Urine Negative mg/dL (0.0-1.0); WBC,Urine 3 /hpf (0-5)
[2024-06-07 11:57] LABS: HCG Qualitative,Urine Negative
[2024-06-07 12:26] LABS: Amphetamine/Methamp Scrn,U Positive (Negative); Barbiturate Screen,Urine Negative (Negative); Benzodiazepines Screen,Urine Negative (Negative); Benzoylecgonine Screen, Ur Negative (Negative); Fentanyl Screen,Urine Negative (Negative); Opiate Screen,Urine Negative (Negative); THC Screen,Urine Negative (Negative)
[2024-06-07 14:32] VITALS: PULSE 92; RESP 20; O2SAT 98
--- NOTE | 2024-06-07 15:30 | PC.NURSE ---
PATIENT SLEEPING, OFFERED SANDWICH, CHIPS AND PUDDING. PATIENT ATE ALL OF FOOD AND WENT BACK TO SLEEP. SITTER REMAINS AT BEDSIDE.
[2024-06-07 18:49] VITALS: BP 148/84; PULSE 97; RESP 16; TEMP 37.1; O2SAT 98
[2024-06-07 21:14] VITALS: BP 132/83; PULSE 78; RESP 18; TEMP 36.8; O2SAT 98
--- NOTE | 2024-06-08 03:42 | PD.EDADDENDU ---
Emergency Room Addendum Addendum Narrative: I took over the care from Margarita Stone NP at _11PM_ on _06/07/24_. See previous notes for complete H & P and ED course. HPI (by Margarita Stone NP): 33-year-old female patient with significant history of mental disorder, homeless, was brought in by law enforcement for psychiatric symptoms. Apparently patient was in the [employer] and hitting her head on the glass door because nobody is giving her a compliance assistant. She was mad and lost her temper. Police was involved, and patient was trying to resist arrest. While in the lobby patient is getting more upset, patient is refusing vital signs. Patient is telling the decorating and assembly supervisor that she is suicidal. Was brought to the half-way and patient was brought back to us. On my initial evaluation patient is conversant follows simple commands. Our ED hospice patient care secretary is working to find inpatient psychiatric unit placement. At 6 AM on 06/08/2024, the care the patient was transferred to Dr. Fink. During my watch, the patient remained stable. [place] Jain MD
[2024-06-08 06:08] VITALS: BP 148/58; PULSE 85; RESP 20; TEMP 36.7; O2SAT 96
--- NOTE | 2024-06-08 07:08 | EDNOTE_ITS ---
Emergency Room Addendum Addendum Narrative: 0600: Care assumed from Dr. Jain, the previous shift emergency physician. Past medical, surgical, social and family history reviewed. Vitals and home medications reviewed. I will assume the care of the patient at this time, pending mental health reevaluation vs LPS facility placement. Please refer to the emergency department record for history and examination from initial visit.?The following addendum documentation note is intended to reflect any pending information, findings, or radiology results not included in the patient?s initial chart. 0908: ASW has met with the patient and rescinded the 5150 hold. States patient will return to [facility]. Patient remains clinically stable throughout the emergency department visit. Patient was discharged in stable condition.
--- NOTE | 2024-06-08 07:40 | PC.NURSE ---
pt brought in for SI. pt states she doesnt want to hurt herself or others. pt states she has bugs on faces and wants antibotics
--- NOTE | 2024-06-08 07:46 | PC.NURSE ---
pt eating breakfast.
[2024-06-08 08:00] VITALS: BP 136/95; PULSE 87; RESP 18; TEMP 36.9; O2SAT 97
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
--- NOTE | 2024-06-08 09:27 | PC.CC ---
Patient refused the Uber and reported she rather walk as she needs to smoke a cigarette.
== END 2024-06-08 09:25 | disposition home or self-care (01) ==
PROVIDERS: Nurse Practitioner Family; Emergency Provider Emergency Medicine
DX: F20.9 Schizophrenia, unspecified (principal); Z59.00 Homelessness unspecified
CPT/HCPCS: 80048; 80307; 80320; 80329; 81001; 81025; 85025; 90839; 96127; 99284; G0480

== ENCOUNTER 2024-07-06 02:48 | Emergency (ER) | payer MEDICAID, SELFPAY ==
--- NOTE | 2024-07-06 03:08 | PC.NURSE ---
AFTER TRIAGE , PT TOOK OFF ER.
== END 2024-07-06 03:10 | disposition left against medical advice (07) ==
LOC: SERX 03:34
PROVIDERS: Emergency Provider Emergency Medicine
DX: Z53.21 Procedure and treatment not carried out due to patient leaving prior to being seen by health care provider (principal)

== ENCOUNTER 2024-07-06 04:56 | Emergency (ER) | payer MEDICAID, SELFPAY ==
[2024-07-06 05:11] VITALS: BP 133/81; PULSE 92; RESP 18; TEMP 36.4; O2SAT 100
--- NOTE | 2024-07-06 06:30 | PC.NURSE ---
PT TOOK OFF FROM ER.
== END 2024-07-06 06:30 | disposition left against medical advice (07) ==
LOC: SERX 06:17
PROVIDERS: Emergency Provider Emergency Medicine
DX: Z53.21 Procedure and treatment not carried out due to patient leaving prior to being seen by health care provider (principal)
CPT/HCPCS: 99281

== ENCOUNTER 2024-07-06 15:09 | Emergency (ER) | payer MEDICAID, SELFPAY ==
--- NOTE | 2024-07-06 15:43 | PC.NURSE ---
CALLED FOR PT FROM LOBBY/OUTSIDE, NO ANSWER. SECURITY AND VISITOR OF PT STATED PT HAD WALKED OFF TO FIND A CIGARETTE . COULD NOT FIND PT OUTSIDE OF ER.
--- NOTE | 2024-07-06 15:58 | PC.NURSE ---
PER SECURITY, PT SEEN WALKING OFF HOSPITAL PROPERTY. CALLED FOR PT AGAIN AND NO ANSWER [phone]
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
== END 2024-07-06 16:37 | disposition left against medical advice (07) ==
PROVIDERS: Emergency Provider Emergency Medicine
DX: Z53.21 Procedure and treatment not carried out due to patient leaving prior to being seen by health care provider (principal)

== ENCOUNTER 2024-07-22 05:26 | Emergency (ER) | payer MEDICAID, SELFPAY ==
[2024-07-22 05:29] VITALS: BMI 21.6
[2024-07-22 05:41] VITALS: BP 142/85; PULSE 96; RESP 19; TEMP 37.3; O2SAT 98
--- NOTE | 2024-07-22 05:49 | PD.EDRME ---
Rapid Medical Screening Exam RME Arrival date/time: 07/22/24 05:26 33-year-old female with history of methamphetamine use and schizophrenia presents stating she does not feel well Chief Complaint: General Adult/Misc Complain Time Seen by Provider: 07/22/24 05:30 Vital signs: Vital Signs Temperature 99.1 F 07/22/24 05:41 Pulse Rate 96 07/22/24 05:41 Respiratory Rate 19 07/22/24 05:41 Blood Pressure 142/85 H 07/22/24 05:41 Pulse Oximetry (%) 98 07/22/24 05:41 Oxygen Delivery Method Room Air 07/22/24 05:41
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
== END 2024-07-22 07:05 ==
PROVIDERS: Emergency Provider Emergency Medicine
DX: F15.10 Other stimulant abuse, uncomplicated (principal); F20.9 Schizophrenia, unspecified
CPT/HCPCS: 80053; 80307; 80320; 84703; 85025; 99281; 99283; G0480

== ENCOUNTER 2024-09-23 23:20 | Emergency (ER) | payer MEDICAID, SELFPAY ==
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
[2024-09-24 00:22] VITALS: BP 141/77; PULSE 78; RESP 20; TEMP 36.9; O2SAT 97
[2024-09-24 00:33] VITALS: BMI 18.8
[2024-09-24 01:38] LABS: HCG,Qualitative Serum Negative
[2024-09-24 01:42] LABS: Acetaminophen < 2.0 mcg/mL (10.0-20.0); Alanine Aminotransferase 20 U/L (10-49); Albumin, Serum 4.4 gm/dL (3.5-5.0); Albumin/Globulin Ratio 1.7 (1.2-2.2); Alcohol, Blood Medical < 3.0 mg/dL (0-10.0); Alkaline Phosphatase 103 U/L (46-116); Anion Gap 11 (7-16); Aspartate Amino Transferase 44 U/L (0-34); BUN/Creatinine Ratio 16 Ratio (12-20); Bilirubin,Direct 0.5 mg/dL (0.0-0.3); Bilirubin,Total 1.7 mg/dL (0.3-1.2); Blood Urea Nitrogen 11 mg/dL (9-23); Calcium 8.7 mg/dL (8.3-10.6); Calcium (Corrected) 8.7 mg/dL (8.5-10.1); Carbon Dioxide 23.2 mMol/L (20.0-31.0); Chloride 107 mMol/L (98-107); Creatinine (Component) 0.7 mg/dL (0.6-1.3); Estimated Creatinine Clearance 91.7 mL/min (>60); Globulin 2.6 gm/dL (2.3-3.5); Glucose 84 mg/dL (74-106); Magnesium 1.7 mg/dL (1.6-2.6); Osmolality,Calculated 279 (275-295); Potassium 4.0 mMol/L (3.4-5.1); Salicylate < 3.0 mg/dL; Sodium 141 mMol/L (136-145); Total Protein 7.0 gm/dL (5.7-8.2); eGFR > 60 See Note
[2024-09-24 01:42] LABS: Amphetamine/Methamp Scrn,U Positive (Negative); Barbiturate Screen,Urine Negative (Negative); Benzodiazepines Screen,Urine Negative (Negative); Benzoylecgonine Screen, Ur Negative (Negative); Fentanyl Screen,Urine Negative (Negative); Opiate Screen,Urine Negative (Negative); THC Screen,Urine Positive (Negative)
[2024-09-24 01:58] VITALS: BP 146/82; PULSE 100; RESP 20; TEMP 36.7; O2SAT 97
[2024-09-24 03:59] LABS: Basophils # (Auto) 0.1 Thou/mm3 (0.0-0.2); Basophils % (Auto) 1 % (0-2.5); Eosinophils # (Auto) 0.1 Thou/mm3 (0.0-0.5); Eosinophils % (Auto) 1 % (0-10); Hematocrit 39.1 % (36.0-46.0); Hemoglobin 13.2 g/dL (12.0-16.0); Immature Granulocytes Auto 0.04 Thou/mm3 (0.00-0.00); Lymphocytes # (Auto) 2.2 Thou/mm3 (1.0-4.8); Lymphocytes % (Auto) 17 % (10-50); Mean Corpuscular HGB Conc 33.8 g/dl (31.0-37.0); Mean Corpuscular Hemoglobin 29.0 pg (25.0-35.0); Mean Corpuscular Volume 86 fL (80-100); Monocytes # (Auto) 1.7 Thou/mm3 (0.0-0.8); Monocytes % (Auto) 14 % (0-12); Neutrophils # (Auto) 8.7 Thou/mm3 (1.8-7.7); Neutrophils % (Auto) 68 % (37-80); Nucleated Red Blood Cell # 0.00 Thou/mm3 (0.00-0.00); Nucleated Red Blood Cell % 0 /100 WBC (0); Platelet Count 286 Thou/mm3 (140-440); RDW Standard Deviation 44.8 fL (36.4-46.3); Red Blood Count 4.55 Miln/mm3 (4.00-5.20); White Blood Count 12.8 Thou/mm3 (3.6-11.0)
[2024-09-24 06:16] VITALS: BP 130/88; PULSE 110; RESP 18; TEMP 36.8; O2SAT 98
--- NOTE | 2024-09-24 06:37 | PD.EDADDENDU ---
Emergency Room Addendum Addendum Narrative: 0600: Care assumed from Dr. Jain, the previous shift emergency physician. Past medical, surgical, social and family history reviewed. Vitals and home medications reviewed. I will assume the care of the patient at this time, pending mental health evaluation. Patient had been medically cleared for evaluation and possible placement. Please refer to the emergency department record for history and examination from initial visit.?The following addendum documentation note is intended to reflect any pending information, findings, or radiology results not included in the patient?s initial chart. 0930: Patient has been evaluated by adoption social worker and states they have rescinded the 5150 hold with safety plan in place. Report the patient will see her therapist at [facility] as soon as she is discharged from here. Patient also has an appointment scheduled with PCP tomorrow at [facility]. Patient will be discharged home.
[2024-09-24 08:32] VITALS: BP 126/74; PULSE 100; RESP 19; TEMP 37.1; O2SAT 97
[2024-09-24] MEDS: BENZOCAINE/MENTHOL 1 LOZENGE PO (09:22)
--- NOTE | 2024-09-24 09:44 | PC.CC ---
Pt is a 33 yo female who entered the ED on 09/23/24 on a 5150 BIB PPD. ASW Kaur Correa and TIP PRINTER Jasmine Spivey met with patient [id number] to complete assessment. ASW and TIP PRINTER introduced self, role, and reason for assessment. ASW disclosed limits of confidentiality as well. Patient appeared alert and oriented to self, place, and situation. Patient was pleasant; her mood appeared depressed; her behavior was deregulated and thoughts racing. Present signs of delusions, paranoid and AVH. Pt is present to place and time and is aware of the events around her. Pt was emotional and crying throughout the assessment. Pt reported the is diagnosed with schizophrenia, psychoactive disorder and major depression. Pt reports she is connected to [facility] and her therapist is Ofelia Marc; pt also sees Dr. Bullock the psychiatrist at the same clinic. Pt reports what brought her into the ED was she was found in the middle of the road trying to save a few dogs. Pt reports audio/visual hallucinations that are non commanding, but are negative and constant. Pt reports the voices are daily throughout the day. Pt reports she has not been medication compliant and cannot remember the last time she was on her medications. Pt reports she is homeless and declines to state whether or not she uses illicit controlled substances. Pt reports she is tired of being homeless and misses her family. Pt reports she has family in the [place] area but is estranged from them. Pt was able to hold a conversation and is aware that she needs help. ASW asked about the statement she made about wanting to shot herself with a gun, she stated it was just words and did not truly mean it literal. She denies having firearm and denies wanting to end her life. ASW and TIP PRINTER Jasmine Spivey asked pt if she is willing to safety plan if we connect her with her resources including additional resources to local mental health agencies, cooling centers and food distribution services and pt was receptive. ASW and TIP PRINTER staffed the case and it was determined that the safest and least restrictive intervention for the pt would be a safety plan as pt is connected to MH services and is in her norm state at this point; and she is not a danger to herself or others. ASW and TIP PRINTER spoke with ER provider and she agreed to the plan. Assigned RN Jyoti is aware. ASW arranged an Uber transporation to [facility], as her therapist agreed to meet with her as soon as she is discharged from the ER. Pt has a PCP appointment with [facility] to treat her sore throat on 09/25/24 at 9:15am. Pt is aware of the mentioned appointments and agreed to attend.
[2024-09-24 10:04] VITALS: BP 147/87; PULSE 96; RESP 18; TEMP 36.8; O2SAT 98
--- NOTE | 2024-09-24 10:21 | PC.CC ---
Pt is a 33 yo female who entered the ED on 09/23/24 on a 5150 BIB PPD. ASW Kaur Correa and SHIPPING ASSISTANT Jasmine Spivey met with patient [id number] to complete assessment. ASW and SHIPPING ASSISTANT introduced self, role, and reason for assessment. ASW disclosed limits of confidentiality as well. Patient appeared alert and oriented to self, place, and situation. Patient was pleasant; her mood appeared depressed; her behavior was deregulated and thoughts racing. Present signs of delusions, paranoid and AVH. Pt is present to place and time and is aware of the events around her. Pt was emotional and crying throughout the assessment. Pt reported the is diagnosed with schizophrenia, psychoactive disorder and major depression. Pt reports she is connected to [facility] and her therapist is Ofelia Marc; pt also sees Dr. Bullock the psychiatrist at the same clinic. Pt reports what brought her into the ED was she was found in the middle of the road trying to save a few dogs. Pt reports audio/visual hallucinations that are non commanding, but are negative and constant. Pt reports the voices are daily throughout the day. Pt reports she has not been medication compliant and cannot remember the last time she was on her medications. Pt reports she is homeless and declines to state whether or not she uses illicit controlled substances. Pt reports she is tired of being homeless and misses her family. Pt reports she has family in the [place] area but is estranged from them. Pt was able to hold a conversation and is aware that she needs help. ASW asked about the statement she made about wanting to shot herself with a gun, she stated it was just words and did not truly mean it literal. She denies having firearm and denies wanting to end her life. ASW and SHIPPING ASSISTANT Jasmine Spivey asked pt if she is willing to safety plan if we connect her with her resources including additional resources to local mental health agencies, cooling centers and food distribution services and pt was receptive. ASW and SHIPPING ASSISTANT staffed the case and it was determined that the safest and least restrictive intervention for the pt would be a safety plan as pt is connected to MH services and is in her norm state at this point; and she is not a danger to herself or others. ASW and SHIPPING ASSISTANT spoke with ER provider and she agreed to the plan. Assigned RN Jyoti is aware. ASW arranged an Uber transporation to [facility], as her therapist agreed to meet with her as soon as she is discharged from the ER. Pt has a PCP appointment with [facility] to treat her sore throat on 09/25/24 at 9:15am. Pt is aware of the mentioned appointments and agreed to attend.
== END 2024-09-24 10:08 | disposition home or self-care (01) ==
PROVIDERS: Emergency Provider Emergency Medicine
DX: Z04.6 Encounter for general psychiatric examination, requested by authority (principal); F29 Unspecified psychosis not due to a substance or known physiological condition; F15.129 Other stimulant abuse with intoxication, unspecified; R45.851 Suicidal ideations; R45.850 Homicidal ideations
CPT/HCPCS: 36415; 80053; 80307; 80320; 80329; 82248; 83735; 84703; 85025; 96127; 99283; A9270; G0480

== ENCOUNTER 2024-09-25 19:41 | Inpatient (IN) | payer MEDICAID, SELFPAY ==
--- NOTE | 2024-09-25 19:49 | PD.EDPSYCH ---
ED Psych RME/HPI General Chief Complaint: Psychiatric Symptoms Stated Complaint: AMS Time Seen by Provider: 09/25/24 19:47 Arrival date/time: 09/25/24 19:41 RME / HPI RME / HPI Narrative: This section includes all my notes and documentations, including HPI, PE, and ED course. Salinas Jain MD HPI: 33 y/o female with extensive psychiatric history, Methamphetamine use, and Homelessness BIBA due to erratic behavior just [employer]. Patient was found outside someone's front yard. The police was called and contacted EMS and she was restrained on scene. EMS was unable to obtain any history. Unable to obtain history from the patient. No purposeful thrashing noted. Moaning and groaning and yelling noted with no understandable words or sentences. ROS: Unable to obtain from the patient due to current clinical condition. Physical Exam: General: Patient appears to be awake. No purposeful nonstop thrashing noted. Moaning and groaning and yelling noted with no understandable words or sentences. Eyes: Conjunctivae and lids clear. EOMI. PERRL. ENT: No signs of head trauma. Neck: Supple. Heart: Sinus tachycardia noted. Lungs: No respiratory distress. Good air movement. No significant rhonchi, wheezing, rales. Abdomen: Soft with equivocal tenderness, difficult to localize. Skin: Warm and dry. Neuro: Unable to perform any meaningful exam. Musculoskeletal: All major joints and bones are not tender with no limited ROM. I reviewed EMS notes. Prior to diagnostic tests, Valium 10 mg IM and Benadryl 50 mg IM and Haldol 10 mg IM given for help with diagnostic tests and for patient's safety and staff safety. I reviewed all diagnostic test results: My review of the US report is: NAD. Blood tests remarkable for WBC 16.9, lactic acid 3.0, total bilirubin 1.6, AST 80, LDH 57, and CK 1651. UDS positive for fentanyl, methamphetamine, benzodiazepine, and marijuana. At this point, diagnoses include: Rhabdomyolisis and Methamphetamine Intoxication. Treatment here after diagnostic tests included: IVF, Zofran 4 mg, Toradol 30 mg. No significant improvement noted. 0349: I discussed the case with our hospitalist. About the presentation and exam and diagnostics and treatments here. And need of further care in the hospital. Will accept the patient. Salinas Jain MD Related Data Home Medications ?Medication ?Instructions ?Recorded ?Confirmed hydroxyzine pamoate 50 mg capsule 50 mg PO BID #0 caps 10/17/15 (Vistaril) lamotrigine 150 mg tablet 150 mg PO BID #0 tabs 10/17/15 (Lamictal) venlafaxine 75 mg capsule,extended 75 mg PO QDAY ##0 10/17/15 release 24 hr (Effexor XR) zolpidem 10 mg tablet (Ambien) 10 mg PO HS #0 tabs 10/17/15 Previous Rx's ?Medication ?Instructions ?Recorded lorazepam 1 mg tablet 1 mg PO Q6HR PRN ANXIETY #10 tabs 10/17/15 Allergies Allergy/AdvReac Type Severity Reaction Status Date / Time No Known Allergies Allergy Verified 07/06/24 15:12 Review of Systems Review of Systems Systems Reviewed: All systems reviewed, normal except as documented Past Medical History Past Medical History PSYCHO/SOCIAL: Positive Bipolar Disorder, Depression, Anxiety, Self-Mutilation and Post Traumatic Stress Disorder Social History SMOKING STATUS: Current some day smoker SUBSTANCE USE: marijuana and methamphetamine ED Exam Narrative Physical exam: Refer to HPI Course Quality Measures none Orders Category Date Time Status Admit to Inpatient Status Routine Admission 09/26/24 03:55 Active Patient Condition Routine Admission 09/26/24 03:55 Ordered 2 HR Behavioral Restraints Q15M Care 10/18/24 20:00 Active COVID-19 Screening Questionnaire NOW Care 09/26/24 03:53 Active Decision to Admit X1 Care 09/26/24 03:53 Completed Miscellaneous Nursing Order NOW Care 09/26/24 03:55 Active Notify provider NEEDED Care 09/26/24 03:55 Active One-to-one observation NOW Care 09/26/24 03:55 Active Saline [Insert IV] NOW Care 09/25/24 19:44 Active Seizure precautions NOW Care 09/26/24 03:56 Active Referral Psych Eval Stat Cons 09/25/24 21:32 Active Diet Regular Diet 09/26/24 Breakfast Active US gall bladder Stat Exams 09/25/24 22:12 Completed Acetaminophen Stat Lab 09/25/24 20:31 Completed Alcohol, Blood Medical Stat Lab 09/25/24 20:31 Completed Bilirubin,Direct Stat Lab 09/25/24 20:31 Completed CBC AM DRAW Lab 09/26/24 04:15 Received CBC AM DRAW Lab 09/27/24 05:00 Ordered CBC AM DRAW Lab 09/28/24 05:00 Ordered CBC Stat Lab 09/25/24 20:31 Completed CK [Creatine Kinase] Stat Lab 09/25/24 20:31 Completed CMP [Comprehensive Metabolic Panel] Stat Lab 09/25/24 20:31 Completed CMP [Comprehensive Metabolic Panel] Stat Lab 09/26/24 00:42 Completed Comprehensive Metabolic Panel AM DRAW Lab 09/26/24 04:15 Received Comprehensive Metabolic Panel AM DRAW Lab 09/27/24 05:00 Ordered Comprehensive Metabolic Panel AM DRAW Lab 09/28/24 05:00 Ordered Creatine Kinase AM DRAW Lab 09/26/24 04:15 Received Creatine Kinase AM DRAW Lab 09/27/24 05:00 Ordered Creatine Kinase AM DRAW Lab 09/28/24 05:00 Ordered Creatine Kinase Stat Lab 09/26/24 00:42 Completed Drug Screen,Urine Stat Lab 09/26/24 01:48 Completed HCG,Qualitative Serum Stat Lab 09/25/24 20:31 Completed LDH (Lactate Dehydrogenase) Stat Lab 09/25/24 20:31 Completed LDH (Lactate Dehydrogenase) Stat Lab 09/26/24 00:42 Completed Lactate (Lactic Acid) Stat Lab 09/25/24 20:31 Completed Lactic Acid, 3 HR Stat Lab 09/25/24 23:57 Completed Lipase Stat Lab 09/25/24 20:31 Completed MG [Magnesium] Stat Lab 09/26/24 00:42 Completed Magnesium AM DRAW Lab 09/26/24 04:15 Received Magnesium AM DRAW Lab 09/27/24 05:00 Ordered Magnesium AM DRAW Lab 09/28/24 05:00 Ordered Magnesium Stat Lab 09/25/24 20:31 Completed Phosphorous AM DRAW Lab 09/27/24 05:00 Ordered Phosphorous AM DRAW Lab 09/28/24 05:00 Ordered Phosphorous AM DRAW Lab 09/29/24 05:00 Ordered Phosphorous Stat Lab 09/25/24 20:31 Completed Phosphorous Stat Lab 09/26/24 00:42 Completed Salicylate Stat Lab 09/25/24 20:31 Completed Troponin I Stat Lab 09/25/24 20:31 Completed Acetaminophen Tab [Tylenol Tab] Med 09/26/24 03:55 Active 650 mg PO Q6H PRN Diazepam Inj [Valium Inj] Med 09/25/24 19:38 Discontinued 10 mg .ROUTE .STK-MED ONE Diazepam Inj [Valium Inj] Med 09/25/24 19:44 Discontinued 10 mg IM X1 ONE Diazepam Inj [Valium Inj] Med 09/26/24 03:59 Active 10 mg IVP Q4HR PRN Diazepam Inj [Valium Inj] Med 09/25/24 21:53 Discontinued 10 mg IVP X1 ONE DiphenhydrAMINE INJ [Benadryl Inj] Med 09/25/24 19:38 Discontinued 50 mg .ROUTE .STK-MED ONE DiphenhydrAMINE INJ [Benadryl Inj] Med 09/25/24 19:44 Discontinued 50 mg IM X1 ONE Enoxaparin [Lovenox] Med 09/26/24 09:00 Active 40 mg SC QDAY HYDROcodone*/APAP 5/325 [[place] 5/325] Med 09/26/24 03:55 Active 1 tab PO Q4HR PRN Haloperidol Lactate [Haldol Inj] Med 09/25/24 19:39 Discontinued 10 mg .ROUTE .STK-MED ONE Haloperidol Lactate [Haldol Inj] Med 09/25/24 19:43 Discontinued 10 mg IM X1 ONE Haloperidol Lactate [Haldol Inj] Med 09/26/24 03:59 Active 5 mg IV Q6HR PRN Ketorolac Inj [Toradol Inj] Med 09/25/24 19:45 Discontinued 30 mg IVP X1 ONE Ondansetron Inj [Zofran Inj] Med 09/25/24 19:45 Discontinued 4 mg IVP X1 ONE Ringers Lactated 1000 ml [Lactated Ringers] 1,000 ml Med 09/26/24 04:00 Active IV 200 mls/hr Sodium Chloride 0.9% 1000 ml [Ns] 1,000 ml Med 09/25/24 19:45 Discontinued IV 999 mls/hr Sodium Chloride 0.9% 1000 ml [Ns] 1,000 ml Med 09/25/24 22:12 Discontinued IV 999 mls/hr Sodium Chloride 0.9% 1000 ml [Ns] 1,000 ml Med 09/25/24 22:13 Discontinued IV 999 mls/hr Code Status Routine Oth 09/26/24 03:55 Ordered Vital Signs Vital signs: Vital Signs Pulse Rate 130 H 09/25/24 19:56 Blood Pressure 137/88 H 09/25/24 19:56 Pulse Oximetry (%) 94 L 09/25/24 19:56 Oxygen Delivery Method Room Air 09/25/24 19:56 Psych MDM Narrative MDM Narrative:: Scribe Attestation: I, Margareth Guardado, am scribing for and in the presence of Dr. Jain. Provider Notation: Although this document has been carefully reviewed, there may still be some phonetic and other typographical errors.? These errors are purely grammatical due to imperfections in the software program and should not be construed in any way to? compromise the substance of the patient's medical care during this visit. 33 y/o female with extensive psychiatric history, Methamphetamine use, and Homelessness BIBA due to erratic behavior just [employer]. Patient was found outside someone's front yard. The police was called and contacted EMS and she was restrained on scene. EMS was unable to obtain any history. Unable to obtain history from the patient. No purposeful thrashing noted. Moaning and groaning and yelling noted with no understandable words or sentences. Patient data External records reviewed:: [facility] previous records (Reviewed prior ED records from 09/24/24. Patient was seen for Homicidal ideation.) and EMS form Clinical information provided by:: EMS Social determinants that could affect healthcare access:: mental health (methamphetamine, marijuana, homelessness) Patient has the following chronic illnesses:: Positive Bipolar Disorder, Depression, Anxiety, Self-Mutilation, Post Traumatic Stress Disorder, Recreational Drug Use How is presenting disease/condition affected by chronic disease/condition?: exacerbated by Evaluation data The following diagnostics were reviewed and interpreted by me:: lab results and radiology exam(s) Lab and/or radiology exams considered but not ordered:: None Interpretation Summary: I reviewed all diagnostic test results: My review of the US report is: NAD. Blood tests remarkable for WBC 16.9, lactic acid 3.0, total bilirubin 1.6, AST 80, LDH 57, and CK 1651. UDS positive for fentanyl, methamphetamine, benzodiazepine, and marijuana. Medications / Prescriptions Medications or Prescriptions considered but not ordered:: None Medication administrations:: Medication Administration History Acetaminophen (Acetaminophen 325 Mg Tablet) 650 mg PO Q6H PRN PRN Reason: Fever >100.4 or pain 1-3 Stop: 10/26/24 03:54 Hydrocodone Bitart/Acetaminophen (Hydrocodone/Apap 5/325 Tablet) 1 tab PO Q4HR PRN PRN Reason: PAIN SCALE 4-10(Mod-Sev Stop: 10/01/24 03:54 Diazepam (Diazepam Inj 5 Mg/Ml Vial 2 Ml) 10 mg IVP Q4HR PRN; Protocol PRN Reason: AGITATION OR ANXIETY Stop: 10/01/24 03:58 Enoxaparin Sodium (Enoxaparin Sod Inj 40 Mg/0.4 Ml Syringe) 40 mg SC QDAY TIMMY Stop: 10/10/24 08:59 Haloperidol Lactate (Haloperidol Lact Inj 5 Mg/Ml Vial) 5 mg IV Q6HR PRN; Protocol PRN Reason: AGITATION (SEVERE) Stop: 10/01/24 03:58 Lactated Ringer's (Lactated Ringers) 1,000 mls @ 200 mls/hr IV .Q5H TIMMY Stop: 10/26/24 03:59 Discontinued Medications Diazepam (Diazepam Inj 5 Mg/Ml Vial 2 Ml) 10 mg IM X1 ONE Stop: 09/25/24 19:45 Last Admin: 09/25/24 19:52 Dose: 10 mg Documented By: EE Comments: MEDICATION ACCIDENTALLY THROWN AWAY Diazepam (Diazepam Inj 5 Mg/Ml Vial 2 Ml) Confirm Administered Dose 10 mg .ROUTE .STK-MED ONE Stop: 09/25/24 19:39 Last Admin: 09/25/24 19:54 Dose: Not Given Documented By: EE Non-Admin Reason: Override Medication Diazepam (Diazepam Inj 5 Mg/Ml Vial 2 Ml) 10 mg IVP X1 ONE Stop: 09/25/24 21:54 Last Admin: 09/26/24 02:59 Dose: Not Given Documented By: EE Non-Admin Reason: Cancelled by Provider Diphenhydramine HCl (Diphenhydramine Inj 50 Mg/Ml Vial) 50 mg IM X1 ONE Stop: 09/25/24 19:45 Last Admin: 09/25/24 19:53 Dose: 50 mg Documented By: EE Diphenhydramine HCl (Diphenhydramine Inj 50 Mg/Ml Vial) Confirm Administered Dose 50 mg .ROUTE .STK-MED ONE Stop: 09/25/24 19:39 Last Admin: 09/25/24 19:54 Dose: Not Given Documented By: EE Non-Admin Reason: Override Medication Haloperidol Lactate (Haloperidol Lact Inj 5 Mg/Ml Vial) 10 mg IM X1 ONE Stop: 09/25/24 19:44 Last Admin: 09/25/24 19:53 Dose: 10 mg Documented By: EE Haloperidol Lactate (Haloperidol Lact Inj 5 Mg/Ml Vial) Confirm Administered Dose 10 mg .ROUTE .STK-MED ONE Stop: 09/25/24 19:40 Last Admin: 09/25/24 19:55 Dose: Not Given Documented By: EE Non-Admin Reason: Override Medication Sodium Chloride (Ns) 1,000 mls @ 999 mls/hr IV .Q1H1M ONE Stop: 09/25/24 20:45 Last Infusion: 09/25/24 21:45 Dose: Infused Documented By: Admin: 09/25/24 20:36 Dose: 999 mls/hr Documented By: EE Sodium Chloride (Ns) 1,000 mls @ 999 mls/hr IV .Q1H1M ONE Stop: 09/25/24 23:12 Last Infusion: 09/26/24 00:16 Dose: Infused Documented By: Admin: 09/25/24 22:53 Dose: 999 mls/hr Documented By: EE Sodium Chloride (Ns) 1,000 mls @ 999 mls/hr IV .Q1H1M ONE Stop: 09/25/24 23:13 Last Infusion: 09/26/24 00:16 Dose: Infused Documented By: Admin: 09/25/24 22:53 Dose: 999 mls/hr Documented By: JEREMIAH Ketorolac Tromethamine (Ketorolac Inj 30 Mg/Ml Vial) 30 mg IVP X1 ONE Stop: 09/25/24 19:46 Last Admin: 09/25/24 20:35 Dose: 30 mg Documented By: JEREMIAH Ondansetron HCl (Ondansetron Inj 2 Mg/Ml Inj 2 Ml) 4 mg IVP X1 ONE; Protocol Stop: 09/25/24 19:46 Last Admin: 09/25/24 20:35 Dose: 4 mg Documented By: JEREMIAH Prior to diagnostic tests, Valium 10 mg IM and Benadryl 50 mg IM and Haldol 10 mg IM given for help with diagnostic tests and for patient's safety and staff safety. Treatment here after diagnostic tests included: IVF, Zofran 4 mg, Toradol 30 mg. Consultations Consultation(s) initiated? (list below): Yes Consultation #1 (Physician, Specialty, Details): [id number]: I discussed the case with our hospitalist. About the presentation and exam and diagnostics and treatments here. And need of further care in the hospital. Will accept the patient. Diagnosis Psych Differential Diagnosis: acute psychosis, chronic schizophrenia, suicidal ideation, bipolar disorder, depression, drug-induced psychotic disorder and acute anxiety Most likely diagnosis given after review of the tests above:: Rhabdomyolisis and methamphetamine intoxication. Admission Indicated Admission indicated?: indicated Explain why admission is indicated or not indicated:: Rhabdomyolisis Admission Request Was there a request for admission?: Yes Admission Attestation Admission request attestation: Discussed case with [] from Hospitalist service regarding admission. Discussed patients ED course, exam findings, labs, and radiology results. The Hospitalist [agrees,declines] to accept the patient for admission. Disposition Plan Disposition Plan: Admit Critical Care Time Critical Care Time Critical Care Time: Yes Total Critical Care Time (min.): 36 Attestation: Due to a high probability of clinically significant, life threatening deterioration, the patient required my highest level of preparedness to intervene emergently and I personally spent this critical care time directly and personally managing the patient. This critical care time included obtaining a history; examining the patient; ordering and review of studies; arranging urgent treatment with development of a management plan; evaluation of patient's response to treatment; frequent reassessment; and discussions with family and other providers. It was exclusive of separately billable procedures and treating other patients and teaching time. Salinas Jain MD Discharge Plan Plan Patient Disposition: Admit Acute Care w/in Hospital Prescriptions/Referrals Prescriptions/Med Rec: No Action lamotrigine [Lamictal] 150 MG tablet 150 mg PO BID Qty: 0 venlafaxine [Effexor XR] 75 MG capsule,extended release 24hr 75 mg PO QDAY Qty: 0 hydroxyzine pamoate [Vistaril] 50 MG capsule 50 mg PO BID Qty: 0 zolpidem [Ambien] 10 MG tablet 10 mg PO HS Qty: 0 lorazepam 1 MG tablet 1 mg PO Q6HR PRN (Reason: ANXIETY) Qty: 10 0RF Referrals: No Primary/Family,Physician [Primary Care Provider] - In 1 week Problem List Clinical Impression: Rhabdomyolysis, Methamphetamine intoxication Patient/Caregiver Discharge Instructions Print Language: Divehi Stand Alone Forms: Dena Award Info., Patient Portal Info Letter
[2024-09-25] MEDS: DIAZEPAM INJ 5 MG/ML VIAL 2 ML 10 MG IM (19:52)
[2024-09-25] MEDS: HALOPERIDOL LACT INJ 5 MG/ML VIAL 10 MG IM (19:53)
[2024-09-25 19:56] VITALS: BP 137/88; PULSE 130; O2SAT 94; BMI 26.4
[2024-09-25] MEDS: KETOROLAC INJ 30 MG/ML VIAL IVP (20:35)
[2024-09-25] MEDS: ONDANSETRON INJ 2 MG/ML INJ 2 ML 4 MG IVP (20:35)
[2024-09-25] MEDS: SODIUM CHLORIDE 0.9% 1000 ML 1,000 ML 999 ML IV ×3 (20:36→22:53)
[2024-09-25 20:42] LABS: Lactate (Lactic Acid) 3.0 mMol/L (0.4-2.0)
[2024-09-25 20:44] LABS: Basophils # (Auto) 0.1 Thou/mm3 (0.0-0.2); Basophils % (Auto) 1 % (0-2.5); Eosinophils # (Auto) 0.0 Thou/mm3 (0.0-0.5); Eosinophils % (Auto) 0 % (0-10); Hematocrit 35.8 % (36.0-46.0); Hemoglobin 12.4 g/dL (12.0-16.0); Immature Granulocytes Auto 0.05 Thou/mm3 (0.00-0.00); Lymphocytes # (Auto) 1.2 Thou/mm3 (1.0-4.8); Lymphocytes % (Auto) 7 % (10-50); Mean Corpuscular HGB Conc 34.6 g/dl (31.0-37.0); Mean Corpuscular Hemoglobin 29.2 pg (25.0-35.0); Mean Corpuscular Volume 84 fL (80-100); Monocytes # (Auto) 1.6 Thou/mm3 (0.0-0.8); Monocytes % (Auto) 9 % (0-12); Neutrophils # (Auto) 14.0 Thou/mm3 (1.8-7.7); Neutrophils % (Auto) 83 % (37-80); Nucleated Red Blood Cell # 0.00 Thou/mm3 (0.00-0.00); Nucleated Red Blood Cell % 0 /100 WBC (0); Platelet Count 293 Thou/mm3 (140-440); RDW Standard Deviation 43.6 fL (36.4-46.3); Red Blood Count 4.24 Miln/mm3 (4.00-5.20); White Blood Count 16.9 Thou/mm3 (3.6-11.0)
[2024-09-25 21:09] VITALS: BP 126/77; PULSE 112; RESP 18; O2SAT 98
[2024-09-25 21:15] VITALS: TEMP 36.9
[2024-09-25 21:50] LABS: HCG,Qualitative Serum Negative
[2024-09-25 22:04] LABS: Acetaminophen < 2.0 mcg/mL (10.0-20.0); Alanine Aminotransferase 29 U/L (10-49); Albumin, Serum 4.9 gm/dL (3.5-5.0); Albumin/Globulin Ratio 1.8 (1.2-2.2); Alcohol, Blood Medical < 3.0 mg/dL (0-10.0); Alkaline Phosphatase 113 U/L (46-116); Anion Gap 15 (7-16); Aspartate Amino Transferase 80 U/L (0-34); BUN/Creatinine Ratio 16 Ratio (12-20); Bilirubin,Direct 0.5 mg/dL (0.0-0.3); Bilirubin,Total 1.6 mg/dL (0.3-1.2); Blood Urea Nitrogen 16 mg/dL (9-23); Calcium 10.0 mg/dL (8.3-10.6); Calcium (Corrected) 10.0 mg/dL (8.5-10.1); Carbon Dioxide 19.6 mMol/L (20.0-31.0); Chloride 107 mMol/L (98-107); Creatine Kinase 1651 U/L (34-171); Creatinine (Component) 1.0 mg/dL (0.6-1.3); Estimated Creatinine Clearance 66.6 mL/min (>60); Globulin 2.8 gm/dL (2.3-3.5); Glucose 83 mg/dL (74-106); Magnesium 2.2 mg/dL (1.6-2.6); Osmolality,Calculated 283 (275-295); Potassium 3.8 mMol/L (3.4-5.1); Salicylate < 3.0 mg/dL; Sodium 142 mMol/L (136-145); Total Protein 7.7 gm/dL (5.7-8.2); Troponin I < 0.020 ng/mL (0.0-0.045); eGFR > 60 See Note
--- NOTE | 2024-09-25 22:12 | XR_ITS ---
Examination: Abdomen sonogram, Limited Date and time of exam: September 25, 2024 1016 hours INDICATIONS: Elevated liver function tests on laboratory examination today Technique: Real-time bowling scale transabdominal sonographic images of the upper abdomen obtained. Findings: Normal gallbladder Normal common bile duct 0.2 cm Pancreatic head 1.8 cm Liver normal size 13.1 cm no liver lesions Normal hepatopedal portal venous flow Patent IVC IMPRESSION: Negative examination
[2024-09-25 22:21] VITALS: BP 131/93; PULSE 102; RESP 18; TEMP 36.8; O2SAT 99
[2024-09-25 22:56] LABS: Lipase 22 U/L (12-53)
--- NOTE | 2024-09-25 23:13 | PC.NURSE ---
PT IS AWAKE AND STABLE TO WALK TO THE RESTROOM AND GIVE URINE SAMPLE. PT WAS ALSO CALM.
[2024-09-25 23:31] LABS: LDH (Lactate Dehydrogenase) 571 U/L (120-246); Phosphorous 4.9 mg/dL (2.4-5.1)
[2024-09-25 23:40] LABS: Reflex Lactate? Y
[2024-09-26] VITALS (8 sets, daily range): BP systolic 100–138; BP diastolic 60–86; PULSE 78–109; RESP 16–26; TEMP 36.1–36.8; O2SAT 93–98
[2024-09-26] LABS: Lactic Acid, 3 HR 1.1 mMol/L (0.4-2.0)
--- NOTE | 2024-09-26 00:05 | PC.NURSE ---
PT IS AWAKE , EATING AND DRINKING FLUIDS. PT IS ALSO CALM.
[2024-09-26 03:00] LABS: Alanine Aminotransferase 23 U/L (10-49); Albumin, Serum 3.6 gm/dL (3.5-5.0); Albumin/Globulin Ratio 1.7 (1.2-2.2); Alkaline Phosphatase 90 U/L (46-116); Anion Gap 13 (7-16); Aspartate Amino Transferase 77 U/L (0-34); BUN/Creatinine Ratio 16 Ratio (12-20); Bilirubin,Total 1.1 mg/dL (0.3-1.2); Blood Urea Nitrogen 13 mg/dL (9-23); Calcium 7.9 mg/dL (8.3-10.6); Calcium (Corrected) 8.2 mg/dL (8.5-10.1); Carbon Dioxide 18.7 mMol/L (20.0-31.0); Chloride 111 mMol/L (98-107); Creatine Kinase 2251 U/L (34-171); Creatinine (Component) 0.8 mg/dL (0.6-1.3); Estimated Creatinine Clearance 83.3 mL/min (>60); Globulin 2.1 gm/dL (2.3-3.5); Glucose 140 mg/dL (74-106); LDH (Lactate Dehydrogenase) 485 U/L (120-246); Magnesium 1.6 mg/dL (1.6-2.6); Osmolality,Calculated 287 (275-295); Phosphorous 4.3 mg/dL (2.4-5.1); Potassium 3.8 mMol/L (3.4-5.1); Sodium 143 mMol/L (136-145); Total Protein 5.7 gm/dL (5.7-8.2); eGFR > 60 See Note
[2024-09-26 03:00] LABS: Amphetamine/Methamp Scrn,U Positive (Negative); Barbiturate Screen,Urine Negative (Negative); Benzodiazepines Screen,Urine Positive (Negative); Benzoylecgonine Screen, Ur Negative (Negative); Fentanyl Screen,Urine Positive (Negative); Opiate Screen,Urine Negative (Negative); THC Screen,Urine Positive (Negative)
--- NOTE | 2024-09-26 03:47 | PC.NURSE ---
PT IS AWAKE AND EATING FOOD. PT ALSO WAS WALKED TO THE RESTROOM WITH ASSISTANCE AND WAS CALM THERE AND BACK. PT IS NOW SLEEPING IN THE BED QUIETLY.
--- NOTE | 2024-09-26 04:00 | PC.IP ---
Pt given pudding and a sandwich. pt eating on gurney without any issues at this time.
--- NOTE | 2024-09-26 04:18 | PC.NURSE ---
PT IS SLEEPING CALMLY, PT WAS GIVEN ANOTHER SNACK AND WENT BACK TO SLEEP.
[2024-09-26 04:36] LABS: Basophils % (Auto) 0 % (0-2.5); Eosinophils % (Auto) 0 % (0-10); Hematocrit 32.9 % (36.0-46.0); Hemoglobin 11.4 g/dL (12.0-16.0); Lymphocytes % (Auto) 13 % (10-50); Mean Corpuscular HGB Conc 34.7 g/dl (31.0-37.0); Mean Corpuscular Hemoglobin 29.2 pg (25.0-35.0); Mean Corpuscular Volume 84 fL (80-100); Monocytes % (Auto) 12 % (0-12); Neutrophils # (Auto) 10.8 Thou/mm3 (1.8-7.7); Neutrophils % (Auto) 74 % (37-80); Platelet Count 250 Thou/mm3 (140-440); RDW Standard Deviation 45.1 fL (36.4-46.3); Red Blood Count 3.91 Miln/mm3 (4.00-5.20); White Blood Count 14.6 Thou/mm3 (3.6-11.0)
[2024-09-26 04:37] LABS: Basophils # (Auto) 0.1 Thou/mm3 (0.0-0.2); Eosinophils # (Auto) 0.0 Thou/mm3 (0.0-0.5); Immature Granulocytes Auto 0.05 Thou/mm3 (0.00-0.00); Lymphocytes # (Auto) 1.9 Thou/mm3 (1.0-4.8); Monocytes # (Auto) 1.8 Thou/mm3 (0.0-0.8); Nucleated Red Blood Cell # 0.00 Thou/mm3 (0.00-0.00); Nucleated Red Blood Cell % 0 /100 WBC (0)
--- NOTE | 2024-09-26 04:37 | PD.RESHP ---
Documentation for date of: 09/26/24 HPI History of Present Illness Chief complaint: Rhabdomyolysis History of present illness: 33 y/o F with PMHx significant for bipolar disorder, PTSD, depression, meth abuse brought to ED by EMS for erratic behaviour. In ED patient was extremely agitated and uncooperative. Labs showed elevation of creatine kinase that uptrended despite aggressive fluid resuscitation. After medication, patient was more cooperative, but still agitated, unable or unwilling to answer most questions. Denies muscle pain, chest pain, SOB. ED COURSE: Labs significant for: WBC 14.6, K+ 3.8, bicarb 18.7, BUN 13, credit reference clerk 0.8, eGFR >60, CCa 8.2, Phos 4.3, LDH 485, CK 2251,lactic acid 1.1. Imaging significant for: GBUS negative. Patient received 10mg Valium, 10mg Haldol, 50mg Benadryl, 3L normal saline bolus. Required 4-point restraints at one point, removed after medications. PMH: Bipolar disorder, PTSD, depression, meth abuse (per chart review) PSH: Patient did not answer SH: Patient did not answer Allergies:?NKDA Medications: Patient unable to confirm medications Review of Systems Review of Systems Systems Reviewed: All systems reviewed, normal except as documented Past Medical History Past Medical History Comments PMH COMMENT: PMH: Bipolar disorder, PTSD, depression, meth abuse (per chart review) PSH: Patient did not answer SH: Patient did not answer Allergies:?NKDA Medications: Patient unable to confirm medications Exam Vital Signs Temp Pulse Resp BP Pulse Ox O2 Del Method O2 Flow Rate 98.2 F 95 18 111/60 93 L Room Air 2 09/26/24 04:09 09/26/24 04:09 09/26/24 04:09/26/24 04:09 09/26/24 04:09/26/24 04:09 09/25/24 22:21 Narrative Exam PE: Gen: Well-developed and well-nourished. Dischevled. HEENT: NCAT, PERRLA, EOMI, MMM, anicteric conjunctivae. CVS: normal S1 and S2. RRR. No M/R/G. Resp: CTA B/L. No rhonchi, rales, crackles or wheezing. Abd: soft, non-tender, non-distended. MSK: Good ROM in BUE & BLE. No edema or rash. Neuro: CN II-XII grossly intact. Strength 5/5 in BUE & BLE. Agitated, uncooperative. Psych: appropriate mood and affect. Results: Labs 09/26/24 04:15 09/26/24 04:15 Labs: Short CBC 09/25/24 Range/Units 20:31 WBC 16.9 H (3.6-11.0) Thou/mm3 Hgb 12.4 (12.0-16.0) g/dL Hct 35.8 L (36.0-46.0) % Plt Count 293 (140-440) Thou/mm3 BMP 09/25/24 09/25/24 20:31 23:51 Sodium 142 143 Potassium 3.8 3.8 Chloride 107 111 H Carbon Dioxide 19.6 L 18.7 L BUN 16 13 Creatinine 1.0 0.8 Glucose 83 140 H D Calcium 10.0 7.9 L D Cardiac Enzymes 09/25/24 09/25/24 Range/Units 20:31 23:51 Total Creatine Kinase 1651 H 2251 H D (34-171) U/L Troponin I < 0.020 (0.0-0.045) ng/mL Liver Function 09/25/24 09/25/24 Range/Units 20:31 23:51 Total Bilirubin 1.6 H 1.1 D (0.3-1.2) mg/dL Direct Bilirubin 0.5 H (0.0-0.3) mg/dL AST 80 H 77 H (0-34) U/L ALT 29 23 (10-49) U/L Alkaline Phosphatase 113 90 D (46-116) U/L Albumin 4.9 D 3.6 D (3.5-5.0) gm/dL Quality Measures Quality Measures VTE prophylaxis Medications Home Medications and Allergies Home Medications ?Medication ?Instructions ?Recorded ?Confirmed ?Type hydroxyzine pamoate 50 mg capsule 50 mg PO BID #0 caps 10/17/15 History (Vistaril) lamotrigine 150 mg tablet 150 mg PO BID #0 tabs 10/17/15 History (Lamictal) venlafaxine 75 mg capsule,extended 75 mg PO QDAY ##0 10/17/15 History release 24 hr (Effexor XR) zolpidem 10 mg tablet (Ambien) 10 mg PO HS #0 tabs 10/17/15 History Allergies Allergy/AdvReac Type Severity Reaction Status Date / Time No Known Allergies Allergy Verified 07/06/24 15:12 Visit Medications Acetaminophen (Acetaminophen 325 Mg Tablet) 650 mg PO Q6H PRN PRN Reason: Fever >100.4 or pain 1-3 Stop: 10/26/24 03:54 Hydrocodone Bitart/Acetaminophen (Hydrocodone/Apap 5/325 Tablet) 1 tab PO Q4HR PRN PRN Reason: PAIN SCALE 4-10(Mod-Sev Stop: 10/01/24 03:54 Diazepam (Diazepam Inj 5 Mg/Ml Vial 2 Ml) 10 mg IVP Q4HR PRN; Protocol PRN Reason: AGITATION OR ANXIETY Stop: 10/01/24 03:58 Enoxaparin Sodium (Enoxaparin Sod Inj 40 Mg/0.4 Ml Syringe) 40 mg SC QDAY TIMMY Stop: 10/10/24 08:59 Haloperidol Lactate (Haloperidol Lact Inj 5 Mg/Ml Vial) 5 mg IV Q6HR PRN; Protocol PRN Reason: AGITATION (SEVERE) Stop: 10/01/24 03:58 Lactated Ringer's (Lactated Ringers) 1,000 mls @ 200 mls/hr IV .Q5H TIMMY Stop: 10/26/24 03:59 Discontinued Medications Diazepam (Diazepam Inj 5 Mg/Ml Vial 2 Ml) 10 mg IM X1 ONE Stop: 09/25/24 19:45 Last Admin: 09/25/24 19:52 Dose: 10 mg Diazepam (Diazepam Inj 5 Mg/Ml Vial 2 Ml) 10 mg IVP X1 ONE Stop: 09/25/24 21:54 Last Admin: 09/26/24 02:59 Dose: Not Given Diphenhydramine HCl (Diphenhydramine Inj 50 Mg/Ml Vial) 50 mg IM X1 ONE Stop: 09/25/24 19:45 Last Admin: 09/25/24 19:53 Dose: 50 mg Haloperidol Lactate (Haloperidol Lact Inj 5 Mg/Ml Vial) 10 mg IM X1 ONE Stop: 09/25/24 19:44 Last Admin: 09/25/24 19:53 Dose: 10 mg Sodium Chloride (Ns) 1,000 mls @ 999 mls/hr IV .Q1H1M ONE Stop: 09/25/24 20:45 Last Infusion: 09/25/24 21:45 Dose: Infused Sodium Chloride (Ns) 1,000 mls @ 999 mls/hr IV .Q1H1M ONE Stop: 09/25/24 23:12 Last Infusion: 09/26/24 00:16 Dose: Infused Sodium Chloride (Ns) 1,000 mls @ 999 mls/hr IV .Q1H1M ONE Stop: 09/25/24 23:13 Last Infusion: 09/26/24 00:16 Dose: Infused Ketorolac Tromethamine (Ketorolac Inj 30 Mg/Ml Vial) 30 mg IVP X1 ONE Stop: 09/25/24 19:46 Last Admin: 09/25/24 20:35 Dose: 30 mg Ondansetron HCl (Ondansetron Inj 2 Mg/Ml Inj 2 Ml) 4 mg IVP X1 ONE; Protocol Stop: 09/25/24 19:46 Last Admin: 09/25/24 20:35 Dose: 4 mg Assessment & Plan Plan 33 y/o F with PMHx significant for bipolar disorder, PTSD, depression, meth abuse brought to ED by EMS for erratic behaviour, admitted for rhabdomyolysis. #Rhabdomyolysis Patient has elevated CK despite 3L bolus NS in ED, uptrended from 1651 to 2251. Kidney function normal. Suspect due to meth use and/or agitation with active movements. - F/U UA - LR at 200 ml/hr - CK and BMP q4h - Close monitoring of K+, Ca, Phos, manage as appropriate - Strict I&Os - Nephrology consult as warranted #Bipolar disorder #Depression #PTSD #Agitation Patient has extensive psychiatric history, including bipolar, PTSD, depression. Med recs pending. patient required sedation and 4-point restrains in ED. Restraints able to be removed after sedation. - Telesitter - Valium 10mg IVP q4h PRN for anxiety/agitation - Haldol 5mg IV q6hr PRN for agitation/anxiety - Psych eval #Methamphetamine use #Fentanyl use Patient has history of meth abuse, Utox shows recent use. - No signs of respiratory failure, continue to monitor. - Narcan as needed. - Social service referral - Counseling regarding addiction services DVT prophylaxis: Lovenox GI prophylaxis: None Diet: Regular Lines: PIV Code status: Full Code Plan of care discussed with attending Dr. Wally Castle MD PGY-2 Attending Provider Attestation/Addendum Attending Provider Attestation/Addendum After examination of the patient and review of the clinical data I feel that this patient needs admission to the hospital for further treatment/evaluation. I Servando Lo MD, attest that I was physically present for adams portions of evaluation, and examined patient, labs and imagings and plan of care were discussed with IM residents team, and I agree with the findings and plans documented above.
--- NOTE | 2024-09-26 05:09 | PC.NURSE ---
Spoke to Dr. Castle, informed him pt's has been cooperative and lying in bed asleep without any issues. Per Dr Castle he will cancel one to one obs order and have pt placed on avasure.
[2024-09-26 05:39] LABS: Alanine Aminotransferase 36 U/L (10-49); Albumin, Serum 3.6 gm/dL (3.5-5.0); Albumin/Globulin Ratio 1.8 (1.2-2.2); Alkaline Phosphatase 100 U/L (46-116); Anion Gap 9 (7-16); Aspartate Amino Transferase 131 U/L (0-34); BUN/Creatinine Ratio 19 Ratio (12-20); Bilirubin,Total 1.3 mg/dL (0.3-1.2); Blood Urea Nitrogen 15 mg/dL (9-23); Calcium 8.4 mg/dL (8.3-10.6); Calcium (Corrected) 8.7 mg/dL (8.5-10.1); Carbon Dioxide 23.4 mMol/L (20.0-31.0); Chloride 110 mMol/L (98-107); Creatine Kinase 6535 U/L (34-171); Creatinine (Component) 0.8 mg/dL (0.6-1.3); Estimated Creatinine Clearance 83.3 mL/min (>60); Globulin 2.0 gm/dL (2.3-3.5); Glucose 124 mg/dL (74-106); Magnesium 1.6 mg/dL (1.6-2.6); Osmolality,Calculated 284 (275-295); Potassium 4.8 mMol/L (3.4-5.1); Sodium 142 mMol/L (136-145); Total Protein 5.6 gm/dL (5.7-8.2); eGFR > 60 See Note
[2024-09-26] MEDS: RINGERS LACTATED 1000 ML 1,000 ML 200 ML IV ×4 (06:05→23:18)
--- NOTE | 2024-09-26 07:45 | PD.RESPRO ---
Documentation for date of: 09/26/24 Subjective Subjective Interval history: Patient was incredibly pleasant and easy to communicate with, nursing staff was there for 1;1 coverage. She endorses recent meth use and slightly darker orange that looks yellow/orange. But otherwise denies SOB, chest pain, NVD. Exam Vital Signs Temp Pulse Resp BP Pulse Ox O2 Del Method O2 Flow Rate 97.0 F 101 H 17 120/76 95 Room Air 2 09/26/24 05:09/26/24 05:09/26/24 05:09/26/24 05:09/26/24 05:09/26/24 05:09/25/24 22:21 Narrative Exam Gen: Well-developed and well-nourished. Disheveled. HEENT: NCAT, PERRLA, EOMI, MMM, anicteric conjunctivae. CVS: Tachy, S1 and S2. No M/R/G. Resp: CTA B/L. No rhonchi, rales, crackles or wheezing. Abd: soft, non-tender, non-distended. MSK: Good ROM in BUE & BLE. No edema or rash. Neuro: CN II-XII grossly intact. Strength 5/5 in BUE & BLE. Agitated, extremely cooperative. Psych: Neuropsychiatric agitation, Delusions Objective Labs 09/26/24 04:15 09/27/24 01:00 Labs: Laboratory Results - last 24 hr 09/25/24 09/25/24 09/25/24 20:31 23:51 23:57 WBC 16.9 H RBC 4.24 Hgb 12.4 Hct 35.8 L MCV 84 MCH 29.2 MCHC 34.6 RDW Std Deviation 43.6 Plt Count 293 Neut % (Auto) 83 H Lymph % (Auto) 7 L Lincoln % (Auto) 9 Eos % (Auto) 0 Baso % (Auto) 1 Neut # (Auto) 14.0 H Lymph # (Auto) 1.2 Lincoln # (Auto) 1.6 H Eos # (Auto) 0.0 Baso # (Auto) 0.1 Immature Gran # (Auto) 0.05 H Absolute Nucleated RBC 0.00 Immature Gran % 0 Nucleated RBC % 0 Sodium 142 143 Potassium 3.8 3.8 Chloride 107 111 H Carbon Dioxide 19.6 L 18.7 L Anion Gap 15 13 BUN 16 13 Creatinine 1.0 0.8 Estim Creat Clear Calc 66.6 83.3 eGFR > 60 > 60 BUN/Creatinine Ratio 16 16 Glucose 83 140 H D Calculated Osmolality 283 287 Lactic Acid 3.0 H 1.1 Calcium 10.0 7.9 L D Corrected Calcium 10.0 8.2 L D Phosphorus 4.9 4.3 Magnesium 2.2 1.6 Total Bilirubin 1.6 H 1.1 D Direct Bilirubin 0.5 H AST 80 H 77 H ALT 29 23 Alkaline Phosphatase 113 90 D Lactate Dehydrogenase 571 H 485 H Total Creatine Kinase 1651 H 2251 H D Troponin I < 0.020 Total Protein 7.7 5.7 Albumin 4.9 D 3.6 D Globulin 2.8 2.1 L Albumin/Globulin Ratio 1.8 1.7 Lipase 22 HCG, Qual Negative Salicylates < 3.0 Urine Opiates Screen Urine Fentanyl Screen Acetaminophen < 2.0 L Ur Barbiturates Screen U Amphetamin/Meth Scrn U Benzodiazepines Scrn U Cocaine Metab Screen U Marijuana (THC) Screen Ethyl Alcohol < 3.0 09/26/24 09/26/24 01:48 04:15 WBC 14.6 H RBC 3.91 L Hgb 11.4 L Hct 32.9 L MCV 84 MCH 29.2 MCHC 34.7 RDW Std Deviation 45.1 Plt Count 250 D Neut % (Auto) 74 Lymph % (Auto) 13 [place] % (Auto) 12 Eos % (Auto) 0 Baso % (Auto) 0 Neut # (Auto) 10.8 H Lymph # (Auto) 1.9 Lincoln # (Auto) 1.8 H Eos # (Auto) 0.0 Baso # (Auto) 0.1 Immature Gran # (Auto) 0.05 H Absolute Nucleated RBC 0.00 Immature Gran % 0 Nucleated RBC % 0 Sodium 142 Potassium 4.8 D Chloride 110 H Carbon Dioxide 23.4 Anion Gap 9 BUN 15 Creatinine 0.8 Estim Creat Clear Calc 83.3 eGFR > 60 BUN/Creatinine Ratio 19 Glucose 124 H Calculated Osmolality 284 Lactic Acid Calcium 8.4 Corrected Calcium 8.7 Phosphorus Magnesium 1.6 Total Bilirubin 1.3 H Direct Bilirubin AST 131 H ALT 36 Alkaline Phosphatase 100 Lactate Dehydrogenase Total Creatine Kinase 6535 H D Troponin I Total Protein 5.6 L Albumin 3.6 Globulin 2.0 L Albumin/Globulin Ratio 1.8 Lipase HCG, Qual Salicylates Urine Opiates Screen Negative Urine Fentanyl Screen Positive A Acetaminophen Ur Barbiturates Screen Negative U Amphetamin/Meth Scrn Positive A U Benzodiazepines Scrn Positive A U Cocaine Metab Screen Negative U Marijuana (THC) Screen Positive A Ethyl Alcohol Quality Measures Quality Measures VTE prophylaxis Assessment & Plan Assessment Current Active Medications: Generic Name Dose Route Start Last Admin Trade Name Freq PRN Reason Stop Dose Admin Acetaminophen 650 mg 09/26/24 03:55 Acetaminophen 325 Mg Tablet PO 10/26/24 03:54 Q6H PRN Fever >100.4 or pain 1-3 Hydrocodone Bitart/Acetaminophen 1 tab 09/26/24 03:55 Hydrocodone/Apap 5/325 Tablet PO 10/01/24 03:54 Q4HR PRN PAIN SCALE 4-10(Mod-Sev Diazepam 10 mg 09/26/24 03:59 Diazepam Inj 5 Mg/Ml Vial 2 Ml IVP 10/01/24 03:58 Q4HR PRN AGITATION OR ANXIETY Protocol Enoxaparin Sodium 40 mg 09/26/24 09:00 Enoxaparin Sod Inj 40 Mg/0.4 Ml Syringe SC 10/10/24 08:59 QDAY TIMMY Haloperidol Lactate 5 mg 09/26/24 03:59 Haloperidol Lact Inj 5 Mg/Ml Vial IV 10/01/24 03:58 Q6HR PRN AGITATION (SEVERE) Protocol Lactated Ringer's 1,000 mls @ 200 mls/hr 09/26/24 04:00 09/26/24 06:05 Lactated Ringers IV 10/26/24 03:59 200 mls/hr .Q5H TIMMY Administration Plan 33 y/o F with PMHx significant for bipolar disorder, PTSD, depression, meth abuse brought to ED by EMS for erratic behaviour, admitted for rhabdomyolysis. #Rhabdomyolysis Patient has elevated CK despite 3L bolus NS in ED, uptrended from 1651 to 2251 --> 7000+. Kidney function normal. Suspect due to meth use and/or agitation with active movements. - F/U UA: Non contributory, yellow orange urine - LR at 200 ml/hr - CK and BMP q4h - Close monitoring of K+, Ca, Phos, manage as appropriate - Strict I&Os - Nephrology consult as warranted #Bipolar disorder #Depression #PTSD #Agitation Patient has extensive psychiatric history, including bipolar, PTSD, depression. Med recs pending. patient required sedation and 4-point restrains in ED. Restraints able to be removed after sedation. - Telesitter - Valium 10mg IVP q4h PRN for anxiety/agitation - Haldol 5mg IV q6hr PRN for agitation/anxiety - Psych eval #Methamphetamine use #Fentanyl use Patient has history of meth abuse, Utox shows recent use. - No signs of respiratory failure, continue to monitor. - Narcan as needed. - Social service referral - Counseling regarding addiction services DVT prophylaxis: Lovenox GI prophylaxis: None Diet: Regular Lines: PIV Code status: Full Code Plan of care discussed with attending Dr. Wally Castle MD PGY-2 Attending Provider Attestation/Addendum I have discussed and was present for the essential components of the history, physical examination, diagnosis, and treatment plan with the resident. I agree with the patient's care as documented by the resident and amended herein by me. Naga Vu DO. Although this document has been carefully reviewed, there may still be some phonetic and other typographical errors. These errors are purely grammatical due to imperfections in the software program and should not be construed in any way to compromise the substance of the patient's medical care during this visit.
[2024-09-26 14:50] LABS: Anion Gap 7 (7-16); BUN/Creatinine Ratio 16 Ratio (12-20); Blood Urea Nitrogen 11 mg/dL (9-23); Calcium 8.2 mg/dL (8.3-10.6); Carbon Dioxide 26.0 mMol/L (20.0-31.0); Chloride 106 mMol/L (98-107); Creatine Kinase 7293 U/L (34-171); Creatinine (Component) 0.7 mg/dL (0.6-1.3); Estimated Creatinine Clearance 94.2 mL/min (>60); Glucose 137 mg/dL (74-106); Osmolality,Calculated 278 (275-295); Potassium 3.9 mMol/L (3.4-5.1); Sodium 139 mMol/L (136-145); eGFR > 60 See Note
--- NOTE | 2024-09-26 15:12 | PC.SS ---
Update: Patient was brought in by [facility] for being erratic and found on someone's front lawn. Patient is altered and has a sitter. Patient was admitted for AMS. She was seen in ER by our crisis team. Patient has hx: Schizophrenia and bipolar. SS was able to speak with patient's grandmother, Diane. Diane has agreed to be the point of contact for patient. Patient has no children. No other family besides her aunt, Shaina. However, she lives out of state and hasn't spoken to patient in a while. Diane, patient's grandmother states she last had contact with patient when she was released from [facility] a week ago. Patient was able to stay one night with grandmother and then went back to the streets. Grandmother believes patient has been homeless for a year now. SS and [employer] will follow up with patient on further history and discharge plan.
--- NOTE | 2024-09-26 20:05 | PC.NURSE ---
PATIENT APPEARS CALM AND RELAXED.SUICIDE PRECAUTIONS INITIATED PER DR PIPER'S ORDER.
--- NOTE | 2024-09-26 20:15 | PC.NURSE ---
EXPLAINED TO PATIENT THAT CURTAINS,BLINDS,CURTAINS,BEDSIDE TABLE,CALL LIGHT AND CLOCK, NEEDS TO REMOVE FOR HER SAFETY.
[2024-09-26 20:47] LABS: Collection Type, Urine Clean Catch; WBC,Urine 0 /hpf (0-5)
[2024-09-26 20:54] LABS: Bilirubin,Urine Negative (Negative); Blood,Urine Negative (Negative); Clarity,Urine Clear (Clear/Hazy); Color,Urine Colorless (Lt Yel-Yel); Glucose, Urine Negative (Negative); Ketones,Urine Negative (Negative); Leukocyte Esterase,Urine Negative (Negative); Nitrite,Urine Negative (Negative); PH,Urine 6.5 (5.0-7.0); Protein,Urine Negative (Neg - Trace); RBC,Urine < 1 /hpf (0-3); Specific Gravity,Urine 1.004 (1.001-1.035); Squamous Epithelial Cell,Urine < 1 /hpf (0-5); Urobilinogen,Urine Negative mg/dL (0.0-1.0)
[2024-09-26] MEDS: HYDROcodone/APAP 5/325 TABLET 1 TAB PO (22:54)
[2024-09-27 01:41] LABS: Anion Gap 6 (7-16); BUN/Creatinine Ratio 10 Ratio (12-20); Blood Urea Nitrogen 6 mg/dL (9-23); Calcium 7.7 mg/dL (8.3-10.6); Carbon Dioxide 27.1 mMol/L (20.0-31.0); Chloride 108 mMol/L (98-107); Creatinine (Component) 0.6 mg/dL (0.6-1.3); Estimated Creatinine Clearance 109.9 mL/min (>60); Glucose 104 mg/dL (74-106); Osmolality,Calculated 278 (275-295); Potassium 3.9 mMol/L (3.4-5.1); Sodium 141 mMol/L (136-145); eGFR > 60 See Note
[2024-09-27 01:53] LABS: Creatine Kinase 4099 U/L (34-171)
[2024-09-27 03:18] VITALS: BP 114/74; PULSE 72; RESP 18; TEMP 36.1; O2SAT 98
[2024-09-27] MEDS: RINGERS LACTATED 1000 ML 1,000 ML 200 ML IV ×2 (04:30→12:30)
[2024-09-27] MEDS: HYDROcodone/APAP 5/325 TABLET 1 TAB PO (05:05)
[2024-09-27 08:00] VITALS: BP 133/98; PULSE 70; RESP 16; TEMP 36.2; O2SAT 98
[2024-09-27 08:47] LABS: Basophils # (Auto) 0.0 Thou/mm3 (0.0-0.2); Basophils % (Auto) 1 % (0-2.5); Eosinophils # (Auto) 0.1 Thou/mm3 (0.0-0.5); Eosinophils % (Auto) 1 % (0-10); Hematocrit 30.8 % (36.0-46.0); Hemoglobin 10.4 g/dL (12.0-16.0); Immature Granulocytes Auto 0.01 Thou/mm3 (0.00-0.00); Lymphocytes # (Auto) 1.5 Thou/mm3 (1.0-4.8); Lymphocytes % (Auto) 24 % (10-50); Mean Corpuscular HGB Conc 33.8 g/dl (31.0-37.0); Mean Corpuscular Hemoglobin 29.5 pg (25.0-35.0); Mean Corpuscular Volume 87 fL (80-100); Monocytes # (Auto) 0.7 Thou/mm3 (0.0-0.8); Monocytes % (Auto) 11 % (0-12); Neutrophils # (Auto) 4.0 Thou/mm3 (1.8-7.7); Neutrophils % (Auto) 64 % (37-80); Nucleated Red Blood Cell # 0.00 Thou/mm3 (0.00-0.00); Nucleated Red Blood Cell % 0 /100 WBC (0); Platelet Count 207 Thou/mm3 (140-440); RDW Standard Deviation 48.3 fL (36.4-46.3); Red Blood Count 3.53 Miln/mm3 (4.00-5.20); White Blood Count 6.3 Thou/mm3 (3.6-11.0)
[2024-09-27 09:12] LABS: Sed Rate (ESR) 3 mm/hr (0-20)
[2024-09-27 09:20] LABS: Alanine Aminotransferase 33 U/L (10-49); Albumin, Serum 3.0 gm/dL (3.5-5.0); Albumin/Globulin Ratio 1.8 (1.2-2.2); Alkaline Phosphatase 72 U/L (46-116); Anion Gap 7 (7-16); Aspartate Amino Transferase 103 U/L (0-34); BUN/Creatinine Ratio 10 Ratio (12-20); Bilirubin,Total 0.7 mg/dL (0.3-1.2); Blood Urea Nitrogen 6 mg/dL (9-23); Calcium 7.8 mg/dL (8.3-10.6); Calcium (Corrected) 8.6 mg/dL (8.5-10.1); Carbon Dioxide 27.5 mMol/L (20.0-31.0); Chloride 107 mMol/L (98-107); Creatinine (Component) 0.6 mg/dL (0.6-1.3); Estimated Creatinine Clearance 109.9 mL/min (>60); Globulin 1.7 gm/dL (2.3-3.5); Glucose 140 mg/dL (74-106); Magnesium 1.4 mg/dL (1.6-2.6); Osmolality,Calculated 280 (275-295); Phosphorous 2.3 mg/dL (2.4-5.1); Potassium 3.8 mMol/L (3.4-5.1); Sodium 141 mMol/L (136-145); Thyroid Stimulating Hormone 0.46 uIU/mL (0.55-4.78); Total Protein 4.7 gm/dL (5.7-8.2); eGFR > 60 See Note
[2024-09-27 09:24] LABS: Glucose Estimated Average 114 mg/dL (80-131); Hemoglobin A1C 5.6 % Hgb (4.8-6.0)
[2024-09-27 09:28] LABS: Creatine Kinase 3359 U/L (34-171)
[2024-09-27 09:34] LABS: Syphilis Nonreactive (Nonreactive)
[2024-09-27] MEDS: CALCIUM CARBONATE 600 MG TABLET PO (09:55)
[2024-09-27] MEDS: ENOXAPARIN SOD INJ 40 MG/0.4 ML SYRINGE SC (09:55)
--- NOTE | 2024-09-27 11:12 | PC.SS ---
follow up note: SS spoke to physician team who states patient is medically cleared from their standpoint and needs a crisis eval today. Patient ready for d/c.
[2024-09-27 11:48] VITALS: BP 127/87; PULSE 73; RESP 17; TEMP 36.3; O2SAT 98
[2024-09-27 12:00] VITALS: BP 127/87; PULSE 73; RESP 17; TEMP 36.3; O2SAT 98
--- NOTE | 2024-09-27 13:39 | PC.NURSE ---
Patient stated she was ready to go home and wanted to discharge now. Patient reassured and MD contacted to speak with patient about discharge plans. Dr Vu notified and came to speak with patient. spoke to patient and stated discharge is being worked on.
[2024-09-27 14:22] LABS: Anion Gap 8 (7-16); BUN/Creatinine Ratio 12 Ratio (12-20); Blood Urea Nitrogen 7 mg/dL (9-23); Calcium 8.5 mg/dL (8.3-10.6); Carbon Dioxide 28.5 mMol/L (20.0-31.0); Chloride 106 mMol/L (98-107); Creatinine (Component) 0.6 mg/dL (0.6-1.3); Estimated Creatinine Clearance 109.9 mL/min (>60); Glucose 98 mg/dL (74-106); Osmolality,Calculated 281 (275-295); Potassium 3.8 mMol/L (3.4-5.1); Sodium 142 mMol/L (136-145); eGFR > 60 See Note
[2024-09-27 14:30] LABS: Creatine Kinase 3113 U/L (34-171)
--- NOTE | 2024-09-27 15:38 | PC.SS ---
1445-ASW Kaur Correa met with patient [id number] to complete assessment. ASW introduced self, role, and reason for assessment. ASW disclosed limits of confidentiality as well. Patient appeared alert and oriented to self, place, and situation. Patient was pleasant; her mood appeared calm and she her thoughts were organized and present. Patient?s thought process was linear and organized. No signs of delusions, paranoid or V/h. Pt admitted to drug use, but believes that her behaviors have nothing to do with her drug use. pt was brought in on a 5150 Hold on 09/25 due to DTS/DTO as she was found on someone's lawn passed out. Pt said the last thing she remembered was partying with her friends and then she blacked-out. She states she woke up to being the hospital. Pt reports she has a friend whom she stays with occasionally and wants to be discharged to that home. Pt states she knows where to get community services and how to get them. Pt is connected to [facility] and had a appointment on 09/23 with Ofelia Marc. Pt has an appointment with Dr. Bullock at [facility] today at 2pm, but she missed it due to being admitted to the hospital. Pt admits to using Meth about 3xs a week and understands that when she uses, there are times she is out of control. However, pt is present to time and place, can hold a conversation and is able to communicate effectively. Pt knows how to connect with resources to help her with food and [place] [facility] and uses them if need be, according to the pt. Pt denies SI/HI, denies self harm and states she wants to live. ASW staffed this case with MATEO Rodriguez and it was determined the pt will d/c on a safety plan. Pt is scheduled to see her therapist, Ofelia Marc on 10/28/24. Pt will f/u with [facility] Dr. Bullock for medications to treat her diagnosis so bioplar II and schizophrenia. Pt was provided resources to the cooling center and local [place] [facility] connection.
--- NOTE | 2024-09-27 15:59 | PC.SS ---
1445-ASW Kaur Correa met with patient [id number] to complete assessment. ASW introduced self, role, and reason for assessment. ASW disclosed limits of confidentiality as well. Patient appeared alert and oriented to self, place, and situation. Patient was pleasant; her mood appeared calm and she her thoughts were organized and present. Patient?s thought process was linear and organized. No signs of delusions, paranoid or V/h. Pt admitted to drug use, but believes that her behaviors have nothing to do with her drug use. pt was brought in on a 5150 Hold on 09/25 due to DTS/DTO as she was found on someone's lawn passed out. Pt said the last thing she remembered was partying with her friends and then she blacked-out. She states she woke up to being the hospital. Pt reports she has a friend whom she stays with occasionally and wants to be discharged to that home. Pt states she knows where to get community services and how to get them. Pt is connected to [facility] and had a appointment on 09/23 with Ofelia Marc. Pt has an appointment with Dr. Bullock at [facility] today at 2pm, but she missed it due to being admitted to the hospital. Pt admits to using Meth about 3xs a week and understands that when she uses, there are times she is out of control. However, pt is present to time and place, can hold a conversation and is able to communicate effectively. Pt knows how to connect with resources to help her with food and custodial and uses them if need be, according to the pt. Pt denies SI/HI, denies self harm and states she wants to live. ASW staffed this case with MATEO Rodriguez and it was determined the pt will d/c on a safety plan. Pt is scheduled to see her therapist, Ofelia aMrc on 10/28/24. Pt will f/u with [facility] Dr. Bullock for medications to treat her diagnosis so bioplar II and schizophrenia. Pt was provided resources to the cooling center and local custodial connection.
[2024-09-27 16:00] VITALS: BP 117/79; PULSE 80; RESP 16; TEMP 36.3; O2SAT 98
--- NOTE | 2024-09-27 16:12 | ESDS_ITS ---
<Statement entered by Billie Lraa MD - 09/28/24 15:33> I have reviewed the note and agree with the resident's assessment & plan with exceptions as below. I have personally reviewed labs, imaging, home meds/prior records, examined the patient, formulated and discussed management plan with the IM team. Patient examined at bedside today. Patient's creatinine kinase and rh abdomyolysis improving today. Patient was offered to go home with a fpc, however patient reported that she wanted to leave with a friend. We offered her the services, however patient insisted on having a place to stay with her friend. Patient was then discharged with the following instructions listed below. Billie Lara, PGY-2 Internal Medicine Planned Discharge Date 09/27/24 DS: Providers Provider Date of admission: 09/26/24 03:55 Primary care physician: Physician Alena Primary/Family Admitting Provider: Servando Lo MD Attending Provider on Admission: Ricardo Vu DO Consults: 09/25/24 21:32 Referral Psych Eval Stat Comment: Evaluation by our ED Anesthesiology Crna 09/26/24 06:00 [facility] Referral - Safety Routine Comment: Positive screening for safety needs. Attending Provider on DC: Ricardo Vu DO Discharging Provider: Ricardo Vu DO DS: Diagnosis Problem List Completed Was Problem List Reviewed/Reconciled?: Yes Hospital Course Hospital Course Hospital course: Ruth Harmno is a 33 y/o F with PMHx significant for bipolar disorder, PTSD, depression, meth abuse brought to ED at [facility] by EMS on 09/24/2024 for erratic behaviour. Patient was admitted for rhabdomyolysis. Her creatine kinase levels initially uptrended despite aggressive fluid resuscitation, but eventually started to come down after many liters of IV fluids. Throughout her stay she was given Patient received Valium, Haldol, Benadryl, and [place] for her initial agitation and pain. Patient was cleared by crisis social worker masters and is okay with not going to a fpc on discharge. On discharge, patient is clinically stable with improvement in her mentation, not agitated and is having improvement in her labs. Discharge Instructions Please return to the emergency department if symptoms worsen or persist Please follow-up with your primary care provider within 7 to 10 days of discharge Please hold your medications until following up with your primary care provider and/or psychiatrist. Admission Diagnosis #Rhabdomyolysis #Bipolar disorder #Depression #PTSD #Agitation #Methamphetamine use #Fentanyl use Patient plan of care was discussed with the attending physician, Dr. Ronnie Mccord MD PGY-1 Time Spent with Patient Time attestation: Total time spent providing and/or coordinating discharge services: Time spent: Greater than 30 minutes Exam Vital Signs Temp Pulse Resp BP Pulse Ox O2 Del Method O2 Flow Rate 97.3 F 73 17 127/87 H 98 Room Air 2 09/27/24 12:00 09/27/24 12:00 09/27/24 12:00 09/27/24 12:00 09/27/24 12:00 09/27/24 12:09/27/24 12:00 Narrative Exam Gen: Well-developed and well-nourished. HEENT: NCAT, PERRLA, EOMI, MMM, anicteric conjunctivae. CVS: Tachy, S1 and S2. No M/R/G. Resp: CTA B/L. No rhonchi, rales, crackles or wheezing. Abd: soft, non-tender, non-distended. MSK: Good ROM in BUE & BLE. No edema or rash. Neuro: CN II-XII grossly intact. Strength 5/5 in BUE & BLE. Cooperative. Psych: Appropriate mood & affect. Discharge Plan Plan Patient Disposition: HOME (Self Care) Patient condition on transfer: Stable Care Plan Goals: Please return to the emergency department if symptoms worsen or persist Please follow-up with your primary care provider within 7 to 10 days of discharge Please hold your medications until following up with your primary care provider and/or psychiatrist. Prescriptions/Referrals Prescriptions/Med Rec: Held lamotrigine [Lamictal] 150 MG tablet 150 mg PO BID Qty: 0 Hold Instructions: Resume on 10/28/24. venlafaxine [Effexor XR] 75 MG capsule,extended release 24hr 75 mg PO QDAY Qty: 0 Hold Instructions: Resume on 10/28/24. hydroxyzine pamoate [Vistaril] 50 MG capsule 50 mg PO BID Qty: 0 Hold Instructions: Resume on 10/28/24. zolpidem [Ambien] 10 MG tablet 10 mg PO HS Qty: 0 Hold Instructions: Resume on 11/27/24. lorazepam 1 MG tablet 1 mg PO Q6HR PRN (Reason: ANXIETY) Qty: 10 0RF Hold Instructions: Resume on 10/28/24. Referrals: No Primary/Family,Physician [Primary Care Provider] - Patient/Caregiver Discharge Instructions Other Discharge Activity Instructions:: Please return to the emergency department if symptoms worsen or persist Please follow-up with your primary care provider within 7 to 10 days of discharge, you can follow-up with the [facility] at Please hold your medications until following up with your primary care provider and/or psychiatrist Education Materials: Rhabdomyolysis, Depression: Tips to Help Yourself, Know the Symptoms of Depression, Addiction Ask These Questions, Addiction: Getting Help, Addiction: Your Treatment Options, Addiction Recovery Counseling Print Language: Citizen Of [place] Stand Alone Forms: Dena Award Info., Patient Portal Info Letter Discharge Order Discharge Orders: Discharge (Routine); Ordered 09/27/24 Ordered By: Ricardo Vu Quality Discharge Quality Measures VTE prophylaxis Attestestation Attestation I have discussed and was present for the essential components of the discharge history, physical examination, diagnosis, and discharge treatment plan with the resident. I agree with the patient's discharge care as documented by the resident and amended herein by me. Naga Vu, DO. The patient understood all discharge instructions, all questions were answered satisfactorily. The patient was instructed to return to the Emergency Department is symptoms worsened or persisted. Patient was significantly improved, CK did downtrend, kidney function normalized. The patient's home meds were held until she can follow-up with her primary care provider or psychiatrist, she states she has not been taking them and I do not want to abruptly restart everything. We offered the patient help in looking for homeless fpc and she declined, stating she would be stay with a friend. Sendy alexis was stable, afebrile, tolerating p.o. intake and ambulatory at time of discharge. Although this document has been carefully reviewed, there may still be some phonetic and other typographical errors. These errors are purely grammatical due to imperfections in the software program and should not be construed in any way to compromise the substance of the patient's medical care during this visit. Wait a minute
[2024-10-02 06:20] LABS: ANA Screen, IFA NEGATIVE (NEGATIVE)
== END 2024-09-27 16:55 | disposition home or self-care (01) | DRG 351 ==
LOC: SERX 09-26 03:53 → SERHOLD 09-26 04:41 → S3SX 09-26 05:50
PROVIDERS: Student in an Organized Health Care Education/Training Program; Admitting Provider Student in an Organized Health Care Education/Training Program; Emergency Provider Emergency Medicine; Visit Provider Student in an Organized Health Care Education/Training Program
DX: M62.82 Rhabdomyolysis (principal); F31.9 Bipolar disorder, unspecified; F43.10 Post-traumatic stress disorder, unspecified; R45.1 Restlessness and agitation; F41.9 Anxiety disorder, unspecified; F15.129 Other stimulant abuse with intoxication, unspecified; F17.200 Nicotine dependence, unspecified, uncomplicated; Z78.1 Physical restraint status; Z59.00 Homelessness unspecified
CPT/HCPCS: 36415; 76705; 80048; 80053; 80307; 80320; 80329; 81001; 82248; 82550; 83036; 83605; 83615; 83690; 83735; 84100; 84443; 84484; 84703; 85025; 85652; 86038; 86780; 87081; 93225; 96127; 96361; 96374; 96375; 99284; J1200; J1630; J1650; J1885; J2405; J3360; J7030; J7120; A9270; G0480

== ENCOUNTER 2024-10-21 23:12 | Emergency (ER) | payer MEDICAID, SELFPAY ==
[2024-10-21 23:26] VITALS: BMI 20.2
[2024-10-21 23:27] VITALS: BP 156/99; PULSE 109; RESP 19; TEMP 36.9; O2SAT 96
[2024-10-22] VITALS (7 sets, daily range): BP systolic 121–141; BP diastolic 75–88; PULSE 64–106; RESP 18–22; TEMP 36.1–36.8; O2SAT 96–100
--- NOTE | 2024-10-22 00:12 | PD.EDPSYCH ---
ED Psych RME/HPI General Chief Complaint: Medical Clearance Stated Complaint: MENTAL EVALUATION Time Seen by Provider: 10/21/24 23:55 Arrival date/time: 10/21/24 23:12 RME / HPI RME / HPI Narrative: See [facility] for Dr. Jain's HPI Documentation. Related Data Home Medications ?Medication ?Instructions ?Recorded ?Confirmed hydroxyzine pamoate 50 mg capsule 50 mg PO BID #0 caps 10/17/15 09/27/24 (Vistaril) Held on 09/27/24. Instructions: Resume on 10/28/24. lamotrigine 150 mg tablet 150 mg PO BID #0 tabs 10/17/15 09/27/24 (Lamictal) Held on 09/27/24. Instructions: Resume on 10/28/24. venlafaxine 75 mg capsule,extended 75 mg PO QDAY ##0 10/17/15 09/27/24 release 24 hr (Effexor XR) Held on 09/27/24. Instructions: Resume on 10/28/24. zolpidem 10 mg tablet (Ambien) 10 mg PO HS #0 tabs 10/17/15 09/27/24 Held on 09/27/24. Instructions: Resume on 11/27/24. Previous Rx's ?Medication ?Instructions ?Recorded lorazepam 1 mg tablet 1 mg PO Q6HR PRN ANXIETY #10 tabs 10/17/15 Held on 09/27/24. Instructions: Resume on 10/28/24. Allergies Allergy/AdvReac Type Severity Reaction Status Date / Time No Known Allergies Allergy Verified 07/06/24 15:12 Review of Systems Review of Systems Systems Reviewed: All systems reviewed, normal except as documented Past Medical History Past Medical History PSYCHO/SOCIAL: Positive Bipolar Disorder, Depression, Anxiety, Self-Mutilation and Post Traumatic Stress Disorder Social History SMOKING STATUS: Current some day smoker SUBSTANCE USE: marijuana and methamphetamine ED Exam Narrative Physical exam: See [facility] for Dr. Jain's Physical Exam Documentation. Course Quality Measures none Orders Category Date Time Status Referral Psych Eval Stat Cons 10/21/24 23:55 Active Acetaminophen Stat Lab 10/21/24 00:08 Completed Alcohol, Blood Medical Stat Lab 10/21/24 00:08 Completed Bilirubin,Direct Stat Lab 10/21/24 00:08 Completed CBC Stat Lab 10/21/24 00:08 Completed CMP [Comprehensive Metabolic Panel] Stat Lab 10/21/24 00:08 Completed Drug Screen,Urine Stat Lab 10/21/24 23:56 Ordered HCG,Qualitative Serum Stat Lab 10/21/24 00:08 Completed Magnesium Stat Lab 10/21/24 00:08 Completed Salicylate Stat Lab 10/21/24 00:08 Completed Vital Signs Vital signs: Vital Signs Temperature 98.4 F 10/21/24 23:27 Pulse Rate 109 H 10/21/24 23:27 Respiratory Rate 19 10/21/24 23:27 Blood Pressure 156/99 H 10/21/24 23:27 Pulse Oximetry (%) 96 10/21/24 23:27 Oxygen Delivery Method Room Air 10/21/24 23:27 Psych MDM Narrative MDM Narrative:: Scribe Attestation: I, Margareth Guardado, am scribing for and in the presence of Dr. Jain. Provider Notation: Although this document has been carefully reviewed, there may still be some phonetic and other typographical errors. These errors are purely grammatical due to imperfections in the software program and should not be construed in any way to compromise the substance of the patient's medical care during this visit. This section includes all my notes and documentations, including HPI, PE, and ED course. Salinas Jain MD HPI: 33 y/o female with Hx of Recreational Drug Use, PTSD, BPD, Depression, Anxiety, and Self-mutilation BIB PPD on 5150 hold. Found her repeatedly hitting and slapping herself at a bus station just [employer]INE [employer]INE[employer]. To me, patient reports no thoughts of hurting herself or others. But patient appears to be intoxicated on methamphetamine. She can't concentrate to answer questions thoroughly. Can't stay still. Difficult to obtain accurate history from the patient. ROS: Unable to obtain from the patient due to current clinical condition. Physical Exam: General: Alert and oriented X 1. Eyes: Conjunctivae and lids clear. EOMI. PERRL. ENT: No signs of head trauma. Neck: Supple. No tenderness. Heart: RRR. Lungs: No respiratory distress. Good air movement. No rhonchi, wheezing, rales. Chest: No tenderness. Abdomen: Soft and nontender. Normal bowel sounds. No distension. No rebound or guarding. Back: No tenderness. Skin: Warm and dry. Neuro: Alert and oriented X 1. Cranial Nerves II-XII grossly intact. No peripheral motor deficits. Musculoskeletal: All major joints and bones are not tender with no limited ROM. Blood tests unremarkable. Urine specimen pending. Entered order for evaluation by our ED rn transitional care. At 6 AM on 10/22/2024, the care of the patient was transferred to Dr. WONG. Salinas Jain MD Patient data External records reviewed:: [facility] previous records (Reviewed prior ED records from 09/25/24. Patient was seen for Methamphetamine intoxication.) Clinical information provided by:: law enforcement Social determinants that could affect healthcare access:: substance use (Methamphetamine, Marijuana) Patient has the following chronic illnesses:: Bipolar Disorder, Depression, Anxiety, Self-Mutilation, Recreational Drug Use, and Post Traumatic Stress Disorder How is presenting disease/condition affected by chronic disease/condition?: exacerbated by Evaluation data The following diagnostics were reviewed and interpreted by me:: lab results Lab and/or radiology exams considered but not ordered:: None Interpretation Summary: Blood test unremarkable. Urine specimen pending. Medications / Prescriptions Medications or Prescriptions considered but not ordered:: None Medication administrations:: None Consultations Consultation(s) initiated? (list below): No Diagnosis Psych Differential Diagnosis: acute psychosis, chronic schizophrenia, suicidal ideation, bipolar disorder, depression, drug-induced psychotic disorder and acute anxiety Most likely diagnosis given after review of the tests above:: Methamphetamine intoxication. Admission Indicated Admission indicated?: not indicated Explain why admission is indicated or not indicated:: No psychiatric service at this facility. Admission Request Was there a request for admission?: No Disposition Plan Disposition Plan: other (specify) (Signed out to Dr. Wong at 6 AM.) Discharge Plan Prescriptions/Referrals Prescriptions/Med Rec: No Action lamotrigine [Lamictal] 150 MG tablet 150 mg PO BID Qty: 0 venlafaxine [Effexor XR] 75 MG capsule,extended release 24hr 75 mg PO QDAY Qty: 0 hydroxyzine pamoate [Vistaril] 50 MG capsule 50 mg PO BID Qty: 0 zolpidem [Ambien] 10 MG tablet 10 mg PO HS Qty: 0 lorazepam 1 MG tablet 1 mg PO Q6HR PRN (Reason: ANXIETY) Qty: 10 0RF Referrals: No Primary/Family,Physician [Primary Care Provider] - In 1 week Problem List Clinical Impression: Methamphetamine intoxication Patient/Caregiver Discharge Instructions Print Language: Latvian
[2024-10-22 00:40] LABS: Acetaminophen < 2.0 mcg/mL (10.0-20.0); Alanine Aminotransferase 27 U/L (10-49); Albumin, Serum 3.9 gm/dL (3.5-5.0); Albumin/Globulin Ratio 1.6 (1.2-2.2); Alcohol, Blood Medical < 3.0 mg/dL (0-10.0); Alkaline Phosphatase 81 U/L (46-116); Anion Gap 9 (7-16); Aspartate Amino Transferase 50 U/L (0-34); BUN/Creatinine Ratio 11 Ratio (12-20); Bilirubin,Direct 0.4 mg/dL (0.0-0.3); Bilirubin,Total 1.2 mg/dL (0.3-1.2); Blood Urea Nitrogen 8 mg/dL (9-23); Calcium 9.6 mg/dL (8.3-10.6); Calcium (Corrected) 9.7 mg/dL (8.5-10.1); Carbon Dioxide 27.6 mMol/L (20.0-31.0); Chloride 105 mMol/L (98-107); Creatinine (Component) 0.7 mg/dL (0.6-1.3); Estimated Creatinine Clearance 98.4 mL/min (>60); Globulin 2.5 gm/dL (2.3-3.5); Glucose 87 mg/dL (74-106); Magnesium 1.8 mg/dL (1.6-2.6); Osmolality,Calculated 280 (275-295); Potassium 3.4 mMol/L (3.4-5.1); Salicylate < 3.0 mg/dL; Sodium 142 mMol/L (136-145); Total Protein 6.4 gm/dL (5.7-8.2); eGFR > 60 See Note
[2024-10-22 00:43] LABS: HCG,Qualitative Serum Negative
[2024-10-22 00:47] LABS: Basophils # (Auto) 0.1 Thou/mm3 (0.0-0.2); Basophils % (Auto) 1 % (0-2.5); Eosinophils # (Auto) 0.3 Thou/mm3 (0.0-0.5); Eosinophils % (Auto) 3 % (0-10); Hematocrit 35.8 % (36.0-46.0); Hemoglobin 12.0 g/dL (12.0-16.0); Immature Granulocytes Auto 0.02 Thou/mm3 (0.00-0.00); Lymphocytes # (Auto) 1.9 Thou/mm3 (1.0-4.8); Lymphocytes % (Auto) 23 % (10-50); Mean Corpuscular HGB Conc 33.5 g/dl (31.0-37.0); Mean Corpuscular Hemoglobin 29.3 pg (25.0-35.0); Mean Corpuscular Volume 87 fL (80-100); Monocytes # (Auto) 0.9 Thou/mm3 (0.0-0.8); Monocytes % (Auto) 12 % (0-12); Neutrophils # (Auto) 4.9 Thou/mm3 (1.8-7.7); Neutrophils % (Auto) 61 % (37-80); Nucleated Red Blood Cell # 0.00 Thou/mm3 (0.00-0.00); Nucleated Red Blood Cell % 0 /100 WBC (0); Platelet Count 342 Thou/mm3 (140-440); RDW Standard Deviation 43.1 fL (36.4-46.3); Red Blood Count 4.10 Miln/mm3 (4.00-5.20); White Blood Count 8.1 Thou/mm3 (3.6-11.0)
--- NOTE | 2024-10-22 07:20 | PC.NURSE ---
Pt. here from home to room 18, pt. states her whole body hurts and she is hungry. Pt. states she didn't eat yesterday. Pt. denies any suicidal or homicidal ideation. Breakfast tray given, pt. states thank you.
--- NOTE | 2024-10-22 11:41 | EDNOTE_ITS ---
Emergency Room Addendum Addendum Narrative: 0600: Care assumed from Dr. Jain, the previous shift emergency physician. Past medical, surgical, social and family history reviewed. Vitals and home medications reviewed. I will assume the care of the patient at this time, pending medical clearance for mental health evaluation. Please refer to the emergency department record for history and examination from initial visit.?The following addendum documentation note is intended to reflect any pending information, findings, or radiology results not included in the patient?s initial chart. Patient has been accepted for transfer by Dr. Godoy at [facility]. EMS p/u scheduled for 21:00h.
[2024-10-22 14:56] LABS: Amphetamine/Methamp Scrn,U Positive (Negative); Barbiturate Screen,Urine Negative (Negative); Benzodiazepines Screen,Urine Negative (Negative); Benzoylecgonine Screen, Ur Negative (Negative); Fentanyl Screen,Urine Negative (Negative); Opiate Screen,Urine Negative (Negative); THC Screen,Urine Positive (Negative)
--- NOTE | 2024-10-22 16:44 | PC.CC ---
Addendum entered by Kaur Correa 10/22/24 17:18: 1654- [facility] accepted, Dr. Godoy, Unit E-1, Nurse to Nurse at [phone] at 2000-Intake Carri accepted Original Note: 1600-ASW submitted to all [facility] facilities. At this time, there is no response yet.
--- NOTE | 2024-10-23 08:07 | PC.CC ---
LATE ENTRY: Pt is a 33 yo female who was BIB LE due to being on a 5150 DTS by [employer]. It was reported that pt was witnessed on a bench hitting herself and LE was called by a concerned citizen. ASW-Kaur Correa met with patient [id number] to complete assessment. ASW introduced self, role, and reason for assessment. ASW disclosed limits of confidentiality as well. Patient was not alert and oriented to self, place, and situation. Patient was responding to internal stimuli and squirming in her bed. Her mood was depressed and she appeared disinhibited and disheveled. Patient?s thought process was linear and organized. Signs of delusions and AVH were present as pt was responding to internal stimuli. ASW attempted to engage with the pt, ask questions about how she got here and asked questions to determine if she was present to time and her environment. Pt was not present to time and her environment. Pt was fully responding to internal stimuli, delusional and making statements that did not make sense. Pt would not answer directly if she wanted to end her life or had a plan. Throughout the day, ASW checked on pt to determine her ability to care for herself and pt had to be prompted to use the restroom and prompted to eat. Pt was unkept, looked as if she had not showered in days accompanied with strong odor. ASW staffed this case with MIXING ENGINEER, Director Jasmine Spivey and it was determined that pt will remain on a 5150 Hold, Amend the hold to reflect Gravely disabled. ASW informed ER provider and she agreed to the determination. Assigned RN is aware. It should be noted that the pt had no open wounds or cuts on her body, as her body was examined by assigned RN. It should also be known that pt tested positive for Meth and Marijuana. Pt has significant h/o Meth use and homelessness, along with mental health diagnosis of schizophrenia and bipolar disorder. Pt is connected to [facility], but is not med compliant. Her psychiatrist is Dr. Mullins at [facility] and sees Ofelia Luna at [facility].
--- NOTE | 2024-10-23 09:26 | PC.CC ---
LATE ENTRY: Pt is a 33 yo female who was BIB LE due to being on a 5150 DTS by [employer]. It was reported that pt was witnessed on a bench hitting herself and LE was called by a concerned citizen. ASW-Kaur Correa met with patient [id number] to complete assessment. ASW introduced self, role, and reason for assessment. ASW disclosed limits of confidentiality as well. Patient was not alert and oriented to self, place, and situation. Patient was responding to internal stimuli and squirming in her bed. Her mood was depressed and she appeared disinhibited and disheveled. Patient?s thought process was linear and organized. Signs of delusions and AVH were present as pt was responding to internal stimuli. ASW attempted to engage with the pt, ask questions about how she got here and asked questions to determine if she was present to time and her environment. Pt was not present to time and her environment. Pt was fully responding to internal stimuli, delusional and making statements that did not make sense. Pt would not answer directly if she wanted to end her life or had a plan. Throughout the day, ASW checked on pt to determine her ability to care for herself and pt had to be prompted to use the restroom and prompted to eat. Pt was unkept, looked as if she had not showered in days accompanied with strong odor. ASW staffed this case with ORTHODONTIST ASSISTANT, Director Jasmine Spivey and it was determined that pt will remain on a 5150 Hold, Amend the hold to reflect Gravely disabled. ASW informed ER provider and she agreed to the determination. Assigned RN is aware. It should be noted that the pt had no open wounds or cuts on her body, as her body was examined by assigned RN. It should also be known that pt tested positive for Meth and Marijuana. Pt has significant h/o Meth use and homelessness, along with mental health diagnosis of schizophrenia and bipolar disorder. Pt is connected to [facility], but is not med compliant. Her psychiatrist is Dr. Mullins at [facility] and sees Ofelia Luna at [facility].
== END 2024-10-22 21:10 ==
PROVIDERS: Emergency Medicine; Emergency Provider Emergency Medicine
DX: Z04.6 Encounter for general psychiatric examination, requested by authority (principal); F15.129 Other stimulant abuse with intoxication, unspecified; Z75.1 Person awaiting admission to adequate facility elsewhere
CPT/HCPCS: 36415; 80053; 80307; 80320; 80329; 82248; 83735; 84703; 85025; 96127; 99284; G0480

== ENCOUNTER 2024-11-08 06:37 | Emergency (ER) | payer MEDICAID, SELFPAY ==
[2024-11-08 06:39] VITALS: PULSE 88; RESP 14; O2SAT 98; BMI 23.0
[2024-11-08 06:49] VITALS: BP 149/88; PULSE 102; RESP 17; TEMP 36.8; O2SAT 99
[2024-11-08] MEDS: MG HYD/AL HYD/SIME (Maalox Reg) SUSP 30 ML UDC PO (06:55)
--- NOTE | 2024-11-08 06:57 | EDNOTE_ITS ---
ED Abdominal Pain RME/HPI General Chief Complaint: Abdominal Pain Stated complaint: ABD PAIN Time seen by provider: 11/08/24 06:47 Arrival date/time: 11/08/24 06:37 34-year-old female with a history of methamphetamine abuse presents to the emergency room with a chief complaint of abdominal pain after eating 5 cr oissants from the dumpster 30 minutes ago. Source: patient Mode of arrival: ambulatory Limitations: no limitations Related Data Home Medications ?Medication ?Instructions ?Recorded ?Confirmed hydroxyzine pamoate 50 mg capsule 50 mg PO BID #0 caps 10/17/15 09/27/24 (Vistaril) Held on 09/27/24. Instructions: Resume on 10/28/24. lamotrigine 150 mg tablet 150 mg PO BID #0 tabs 09/27/24 (Lamictal) Held on 09/27/24. Instructions: Resume on 10/28/24. venlafaxine 75 mg capsule,extended 75 mg PO QDAY ##0 0 10/17/15 09/27/24 release 24 hr (Effexor XR) Held on 09/27/24. Instructions: Resume on 10/28/24. zolpidem 10 mg tablet (Ambien) 10 mg PO HS #0 tabs 09/27/24 Held on 09/27/24. Instructions: Resume on 11/27/24. Previous Rx's ?Medication ?Instructions ?Recorded lorazepam 1 mg tablet 1 mg PO Q6HR PRN ANXIETY #10 tabs 10/17/15 Held on 09/27/24. Instructions: Resume on 10/28/24. Allergies Allergy/AdvReac Type Severity Reaction Status Date / Time No Known Allergies Allergy Verified 07/06/24 15:12 Review of Systems Review of Systems Systems Reviewed: All systems reviewed, normal except as documented Constitutional Constitutional: Reports system reviewed and no additional complaints, except as documented, Denies fatigue, Denies fever(s), Denies headache(s) and Denies weakness Eyes Eyes: Reports system reviewed and no additional complaints, except as documented, Denies blurry vision and Denies change in vision ENT Ears, Nose, Mouth, and Throat: Reports system reviewed and no additional complaints, except as documented, Denies otalgia, Denies headache(s), Denies nasal congestion, Denies throat swelling and Denies vertigo Cardiovascular Cardiovascular: Reports system reviewed and no additional complaints, except as documented, Denies chest pain, Denies dyspnea and Denies dyspnea on exertion Respiratory Respiratory: Reports system reviewed and no additional complaints, except as documented, Denies chest congestion, Denies cough, Denies dyspnea, Denies dyspnea on exertion and Denies wheezing Gastrointestinal Gastrointestinal: Reports system reviewed and no additional complaints, except as documented, Reports abdominal pain, Denies cramping, Reports nausea and Denies vomiting Genitourinary Genitourinary: Reports system reviewed and no additional complaints, except as documented Musculoskeletal Musculoskeletal: Reports system reviewed and no additional complaints, except as documented and Denies back pain Integumentary/Breasts Skin/Breast: Reports system reviewed and no additional complaints, except as documented and Denies wounds Neurologic Neurologic: Reports system reviewed and no additional complaints, except as documented, Denies confusion, Denies headache(s), Denies lack of coordination, Denies vertigo and Denies weakness Psychiatric Psychiatric: Reports system reviewed and no additional complaints, except as documented, Denies anxiety, Denies confusion, Denies depression, Denies paranoia, Denies suicidal ideation and Denies tactile hallucinations Endocrine Endocrine: Reports system reviewed and no additional complaints, except as documented and Denies fatigue Hematologic/Lymphatic Hematologic/Lymphatic: Reports system reviewed and no additional complaints, except as documented and Denies lymphadenopathy Allergic/Immunologic Allergic/Immunologic: Reports system reviewed and no additional complaints, except as documented, Denies throat swelling, Denies urticaria and Denies wheezing Past Medical History Past Medical History CARDIAC: Negative Congestive Heart Failure RESPIRATORY: Negative Chronic Obstructive Pulmonary Disease (COPD) GENITOURINARY: Negative Renal Disease ENDOCRINE: Negative Diabetes Mellitus Type 1 or Diabetes Mellitus Type 2 PSYCHO/SOCIAL: Positive Bipolar Disorder, Depression, Anxiety, Self-Mutilation and Post Traumatic Stress Disorder Social History SMOKING STATUS: Current every day smoker SUBSTANCE USE: marijuana and methamphetamine ED Exam General Limitations: Present no limitations General appearance: Present alert and in no apparent distress Head Head exam: Present atraumatic Eye Eye exam: Present normal appearance, PERRL and EOMI ENT ENT exam: Present normal exam, normal oropharynx and mucous membranes moist Neck Neck exam: Present normal inspection, full ROM and trachea midline Chest Chest inspection: Present normal inspection and symmetric chest wall rise Respiratory Respiratory exam: Present normal lung sounds bilaterally Cardiovascular Cardiovascular exam: Present regular rate, normal rhythm and normal heart sounds Abdominal Exam Abdominal exam: Present soft, tenderness and normal bowel sounds Abdominal tenderness: Present diffuse Extremities Exam Extremities exam: Present normal inspection and full ROM Back Exam Back exam: Present normal inspection and full ROM Neurological Exam Neurological exam: Present alert, oriented X3 and CN II-XII intact Psychiatric Psychiatric exam: Present normal affect and normal mood Skin Skin exam: Present warm, dry, intact and normal color Course Quality Measures none Orders Category Date Time Status CBC Stat Lab 11/08/24 07:26 Completed CMP [Comprehensive Metabolic Panel] Stat Lab 11/08/24 07:26 Completed HCG Qualitative,Urine Stat Lab 11/08/24 07:16 Completed UA [Urinalysis] Stat Lab 11/08/24 07:16 Completed Urine Culture Stat Lab 11/08/24 07:16 Received mg Hyd/Al Hyd/David Susp [Maalox Susp] Med 11/08/24 06:50 Discontinued 30 ml PO X1 ONE Vital Signs Vital signs: Vital Signs Temperature 98.3 F 11/08/24 06:49 Pulse Rate 102 H 11/08/24 06:49 Respiratory Rate 17 11/08/24 06:49 Blood Pressure 149/88 H 11/08/24 06:49 Pulse Oximetry (%) 99 11/08/24 06:49 Oxygen Delivery Method Room Air 11/08/24 06:49 Abdominal Pain MDM MDM Narrative MDM Narrative:: 34-year-old female with a history of methamphetamine abuse presents to the emergency room with a chief complaint of abdominal pain after eating 5 croissants from the dumpster 30 minutes ago. Patient is hemodynamically stable and in no apparent distress Physical examination shows soft nontender abdomen. The patient is afebrile not tachycardic not tachypneic CBC CMP were all within normal limits and negative for any leukocytosis. Urinalysis was contaminated For any evidence of worsening signs or symptoms return to emergency room immediately Patient data External records reviewed:: [facility] previous records Clinical information provided by:: patient Social determinants that could affect healthcare access:: none Patient has the following chronic illnesses:: No chronic illness How is presenting disease/condition affected by chronic disease/condition?: no chronic disease Evaluation data The following diagnostics were reviewed and interpreted by me:: lab results and radiology exam(s) Lab and/or radiology exams considered but not ordered:: Labs and radiology exams considered and ordered Interpretation Summary: N/A Medications / Prescriptions Medications or Prescriptions considered but not ordered:: Medication given Medication administrations:: Medication Administration History Discontinued Medications Al Hydrox/Mg Hydrox/Simethicone (Mg Hyd/Al Hyd/David (Maalox Reg) Susp 30 Ml Udc) 30 ml PO X1 ONE Stop: 11/08/24 06:51 Last Admin: 11/08/24 06:55 Dose: 30 ml Documented By: WO Medication given Consultations Consultation(s) initiated? (list below): No Diagnosis Differential diagnosis abdominal pain: abdominal pain, gastroenteritis and other (Food poisoning) Most likely diagnosis given after review of the tests above:: Gastroenteritis Admission Indicated Admission indicated?: not indicated Admission Request Was there a request for admission?: No Disposition Plan Disposition Plan: Discharge Discharge Attestation Discharge Attestation: The patient and all family members were given an opportunity to ask questions and understood the discharge instructions. Discharge instructions specifically effects, indications for sooner follow up or return to the emergency department, and the expected course of current diagnosis. Patient condition: Stable Discharge Plan Plan Patient Disposition: HOME (Self Care) Discharge Disposition comment: stable Prescriptions/Referrals Prescriptions/Med Rec: No Action lamotrigine [Lamictal] 150 MG tablet 150 mg PO BID Qty: 0 venlafaxine [Effexor XR] 75 MG capsule,extended release 24hr 75 mg PO QDAY Qty: 0 hydroxyzine pamoate [Vistaril] 50 MG capsule 50 mg PO BID Qty: 0 zolpidem [Ambien] 10 MG tablet 10 mg PO HS Qty: 0 lorazepam 1 MG tablet 1 mg PO Q6HR PRN (Reason: ANXIETY) Qty: 10 0RF Referrals: No Primary/Family,Physician [Primary Care Provider] - In 1 week Problem List Clinical Impression: Gastroenteritis, Food poisoning Patient/Caregiver Discharge Instructions Education Materials: ED Food Poison Or Gastroenteritis Additional Instructions: Please follow-up with your primary care provider in the next 24 to 48 hours Your blood work was negative for any acute findings For any evidence of worsening signs or symptoms return emergency room immediately Print Language: Malay Stand Alone Forms: Dena Award Info., Patient Portal Info Letter PA/OVIDIO Supervising Physician PA/OVIDIO Supervising Physician: Dr. Shin
[2024-11-08 07:37] LABS: Collection Type, Urine Clean Catch
[2024-11-08 07:40] LABS: Basophils # (Auto) 0.1 Thou/mm3 (0.0-0.2); Basophils % (Auto) 1 % (0-2.5); Eosinophils # (Auto) 0.2 Thou/mm3 (0.0-0.5); Eosinophils % (Auto) 3 % (0-10); Hematocrit 37.0 % (36.0-46.0); Hemoglobin 11.9 g/dL (12.0-16.0); Immature Granulocytes Auto 0.04 Thou/mm3 (0.00-0.00); Lymphocytes # (Auto) 1.4 Thou/mm3 (1.0-4.8); Lymphocytes % (Auto) 19 % (10-50); Mean Corpuscular HGB Conc 32.2 g/dl (31.0-37.0); Mean Corpuscular Hemoglobin 29.3 pg (25.0-35.0); Mean Corpuscular Volume 91 fL (80-100); Monocytes # (Auto) 0.6 Thou/mm3 (0.0-0.8); Monocytes % (Auto) 9 % (0-12); Neutrophils # (Auto) 5.0 Thou/mm3 (1.8-7.7); Neutrophils % (Auto) 68 % (37-80); Nucleated Red Blood Cell # 0.00 Thou/mm3 (0.00-0.00); Nucleated Red Blood Cell % 0 /100 WBC (0); Platelet Count 328 Thou/mm3 (140-440); RDW Standard Deviation 46.0 fL (36.4-46.3); Red Blood Count 4.06 Miln/mm3 (4.00-5.20); White Blood Count 7.3 Thou/mm3 (3.6-11.0)
[2024-11-08 07:44] LABS: Bacteria,Urine Rare; Bilirubin,Urine Negative (Negative); Blood,Urine Negative (Negative); Color,Urine Lt-Yellow (Lt Yel-Yel); Glucose, Urine Negative (Negative); Ketones,Urine Negative (Negative); Leukocyte Esterase,Urine Negative (Negative); Nitrite,Urine Negative (Negative); PH,Urine 6.0 (5.0-7.0); Protein,Urine Negative (Neg - Trace); RBC,Urine 2 /hpf (0-3); Specific Gravity,Urine 1.018 (1.001-1.035); Squamous Epithelial Cell,Urine 17 /hpf (0-5); Urobilinogen,Urine Negative mg/dL (0.0-1.0); WBC,Urine 6 /hpf (0-5)
[2024-11-08 07:49] LABS: Clarity,Urine Hazy (Clear/Hazy)
[2024-11-08 08:00] LABS: Alanine Aminotransferase 45 U/L (10-49); Albumin, Serum 4.2 gm/dL (3.5-5.0); Albumin/Globulin Ratio 1.8 (1.2-2.2); Alkaline Phosphatase 123 U/L (46-116); Anion Gap 7 (7-16); Aspartate Amino Transferase 18 U/L (0-34); BUN/Creatinine Ratio 14 Ratio (12-20); Bilirubin,Total 0.4 mg/dL (0.3-1.2); Blood Urea Nitrogen 10 mg/dL (9-23); Calcium 9.3 mg/dL (8.3-10.6); Calcium (Corrected) 9.3 mg/dL (8.5-10.1); Carbon Dioxide 31.1 mMol/L (20.0-31.0); Chloride 104 mMol/L (98-107); Creatinine (Component) 0.7 mg/dL (0.6-1.3); Estimated Creatinine Clearance 95.4 mL/min (>60); Globulin 2.4 gm/dL (2.3-3.5); Glucose 117 mg/dL (74-106); Osmolality,Calculated 283 (275-295); Potassium 3.9 mMol/L (3.4-5.1); Sodium 142 mMol/L (136-145); Total Protein 6.6 gm/dL (5.7-8.2); eGFR > 60 See Note
[2024-11-08 08:06] LABS: HCG Qualitative,Urine Negative
== END 2024-11-08 08:24 | disposition home or self-care (01) ==
PROVIDERS: Nurse Practitioner Family; Emergency Provider Emergency Medicine
DX: K52.9 Noninfective gastroenteritis and colitis, unspecified (principal); L27.2 Dermatitis due to ingested food
CPT/HCPCS: 36415; 80053; 81001; 81025; 85025; 87086; 99283; A9270

== ENCOUNTER 2024-12-07 16:46 | Emergency (ER) | payer MEDICAID, SELFPAY ==
--- NOTE | 2024-12-07 16:51 | PC.NURSE ---
PT REFUSED VITALS. EXPERIMENTAL DISPLAY BUILDER AWARE
--- NOTE | 2024-12-07 16:57 | PD.EDPSYCH ---
ED Psych RME/HPI General Chief Complaint: Psychiatric Symptoms Stated Complaint: HOLD Time Seen by Provider: 12/07/24 17:07 Arrival date/time: 12/07/24 16:46 RME / HPI RME / HPI Narrative: DR. WONG MAIN ED EVALUATION: 34-year-old female SALVADOR after being placed on a hold for altered behavior. Per patient, she was reportedly experiencing burning sensations from ant bites and removed her shirt in public prior to arrival. The patient states, they took my stuff and brought me here , and expresses frustration about being held involuntarily. She denies suicidal ideation, homicidal ideation, or hallucinations. Denies trauma or medical complaints. Related Data Home Medications ?Medication ?Instructions ?Recorded ?Confirmed hydroxyzine pamoate 50 mg capsule 50 mg PO BID #0 caps 10/17/15 09/27/24 (Vistaril) Held on 09/27/24. Instructions: Resume on 10/28/24. lamotrigine 150 mg tablet 150 mg PO BID #0 tabs 10/17/15 09/27/24 (Lamictal) Held on 09/27/24. Instructions: Resume on 10/28/24. venlafaxine 75 mg capsule,extended 75 mg PO QDAY ##0 10/17/15 09/27/24 release 24 hr (Effexor XR) Held on 09/27/24. Instructions: Resume on 10/28/24. zolpidem 10 mg tablet (Ambien) 10 mg PO HS #0 tabs 10/17/15 09/27/24 Held on 09/27/24. Instructions: Resume on 11/27/24. Previous Rx's ?Medication ?Instructions ?Recorded lorazepam 1 mg tablet 1 mg PO Q6HR PRN ANXIETY #10 tabs 10/17/15 Held on 09/27/24. Instructions: Resume on 10/28/24. Allergies Allergy/AdvReac Type Severity Reaction Status Date / Time No Known Allergies Allergy Verified 12/07/24 17:01 Review of Systems Review of Systems Systems Reviewed: All systems reviewed, normal except as documented Past Medical History Past Medical History PSYCHO/SOCIAL: Positive Bipolar Disorder, Depression, Anxiety, Self-Mutilation and Post Traumatic Stress Disorder Social History SMOKING STATUS: Current some day smoker SUBSTANCE USE: marijuana and methamphetamine ED Exam Narrative Physical exam: GENERAL APPEARANCE:? alert and oriented x 4, well-developed, well-nourished, no acute distress HEENT: normocephalic, atraumatic NECK: supple LUNGS: no respiratory distress, normal effort HEART: good peripheral perfusion ABDOMEN: non distended EXTREMITIES:? atraumatic NEUROLOGIC: awake; alert and oriented x4; cranial nerves II-XII grossly intact PSYCHIATRIC:? appropriate mood and affect; no SI, no HI, no hallucinations SKIN: warm, dry, normal color; no rashes Course Quality Measures none Reevaluation(s) Reevaluation #1: Patient is medically cleared Time: 17:00 Vital Signs Vital signs: Vital Signs Temperature 98.6 F 12/07/24 17:01 Pulse Rate 102 H 12/07/24 17:01 Respiratory Rate 16 12/07/24 17:01 Blood Pressure 136/89 H 12/07/24 17:01 Pulse Oximetry (%) 99 12/07/24 17:01 Oxygen Delivery Method Room Air 12/07/24 17:01 Psych MDM Narrative MDM Narrative:: IChanda am scribing for and in the presence of Dr. Wong. 1700: Patient is medically cleared. Patient data External records reviewed:: [facility] previous records and EMS form Clinical information provided by:: patient and EMS Social determinants that could affect healthcare access:: none Patient has the following chronic illnesses:: Drug abuse. How is presenting disease/condition affected by chronic disease/condition?: no chronic disease Evaluation data The following diagnostics were reviewed and interpreted by me:: other (specify) (none) Lab and/or radiology exams considered but not ordered:: none Interpretation Summary: n/a Medications / Prescriptions Medications or Prescriptions considered but not ordered:: none Medication administrations:: see above if any Consultations Consultation(s) initiated? (list below): Yes Consultation #1 (Physician, Specialty, Details): Mental health evaluated the patient and cleared her. Patient will be discharged. Diagnosis Psych Differential Diagnosis: other (Substance-induced psychosis, acute stress reaction, and tactile hallucinations secondary to medical or psychiatric etiology.) Most likely diagnosis given after review of the tests above:: Agitation Admission Indicated Admission indicated?: not indicated Admission Request Was there a request for admission?: No Disposition Plan Disposition Plan: Discharge Discharge Attestation Discharge Attestation: The patient and all family members were given an opportunity to ask questions and understood the discharge instructions. Discharge instructions specifically effects, indications for sooner follow up or return to the emergency department, and the expected course of current diagnosis. Patient condition: Stable Discharge Plan Plan Patient Disposition: HOME (Self Care) Prescriptions/Referrals Prescriptions/Med Rec: No Action lamotrigine [Lamictal] 150 MG tablet 150 mg PO BID Qty: 0 venlafaxine [Effexor XR] 75 MG capsule,extended release 24hr 75 mg PO QDAY Qty: 0 hydroxyzine pamoate [Vistaril] 50 MG capsule 50 mg PO BID Qty: 0 zolpidem [Ambien] 10 MG tablet 10 mg PO HS Qty: 0 lorazepam 1 MG tablet 1 mg PO Q6HR PRN (Reason: ANXIETY) Qty: 10 0RF Referrals: No Primary/Family,Physician [Primary Care Provider] - In 1 week Problem List Clinical Impression: Agitation Patient/Caregiver Discharge Instructions Print Language: Macedonian Stand Alone Forms: Dena Award Info., Patient Portal Info Letter
[2024-12-07 17:01] VITALS: BP 136/89; PULSE 102; RESP 16; TEMP 37; O2SAT 99
[2024-12-07 17:03] VITALS: BMI 20.4
--- NOTE | 2024-12-07 17:34 | PC.NURSE ---
Patient's hold resended by Richelle, high school social studies tutor, Dr. Wong aware will d/c patient.
--- NOTE | 2024-12-07 17:38 | PC.CC ---
Patient is a 34 year-old female BIBA on a 5150-hold by [facility] for Danger to Self. It was reported by [place] that patient was walking on the roadway with her shirt off. Per Dr. Wong patient is medically cleared and requiring a mental health re-evaluation. Chau made [id number] contact with patient to complete assessment. TOWEL DISTRIBUTOR introduced self, role, and reason for assessment. TOWEL DISTRIBUTOR disclosed limits of confidentiality as well. Patient appeared alert and oriented to self, place, and situation. Patient made appropriate eye contact with this marketing copywriter. Patient appeared euthymic during assessment and was cooperative during assessment. No signs of delusions, paranoia or hallucinations. Patient reports she was walking on the side of the road from [facility] to [place]. She reports she had ants crawling on her and took her shirt off because they were crawling on her but was not wearing a bra and this is when the deputy responded. Patient reports she was not a danger to herself and was not trying to harm anyone else by taking her shirt off. Patient disclosed she is currently homeless as she lost the house she was renting a while back. At the time of encounter with the patient she denied suicide attempt, suicidal and homicidal ideations, visual and auditory hallucinations. Patient reports she has been on 5150-holds in the past but does not recall when the last one was. She reports she is connected to [facility] and her psychiatrist is Dr. Bullock. Per patient, she is compliant with her psychotropic medications Haldol, Trazadone, and Wellbutrin. TOWEL DISTRIBUTOR confirmed patient?s medications as bedside RN confirmed they are in her belongings. Patient has mental health diagnosis of Bipolar Disorder and Schizophrenia. Patient reports is able to complete her own ADLs and ambulate independently. Per patient she has a follow up appointment on Monday with [facility]. Patient reports she does use methamphetamine frequently but does not recall the last time she used. Patient?s [place] Screening is Low-Risk. TOWEL DISTRIBUTOR, inquired if contact could be made with her grandmother, Diane Mcfarlane and patient denied as she stated she does not want to worry her grandmother. Upon clinical consultation with TOWEL DISTRIBUTOR, Shakila Rodriguez patient does not meet criteria for 5150-hold and it will be rescinded. Patient will be provided with [facility] Resource Guide with Half-Way information, patient was provided with a meal, shoes, and a clean shirt. Medical team was provided of update that hold was rescinded.
== END 2024-12-07 17:52 | disposition home or self-care (01) ==
PROVIDERS: Emergency Provider Emergency Medicine
DX: R45.1 Restlessness and agitation (principal)
CPT/HCPCS: 96127; 99281

== ENCOUNTER 2024-12-12 08:43 | Emergency (ER) | payer MEDICAID, SELFPAY ==
[2024-12-12 08:43] VITALS: BMI 20.4
[2024-12-12 08:52] VITALS: BP 146/98; PULSE 89; RESP 16; TEMP 36.7; O2SAT 99; BMI 22.0
--- NOTE | 2024-12-12 08:53 | PD.EDUPEX ---
Upper Extremity Injury RME/HPI General Chief Complaint: Extremity Injury, Upper Stated Complaint: laceration to hand Time Seen by Provider: 12/12/24 08:45 Arrival date/time: 12/12/24 08:43 34-year-old female presents to the emergency department today for complaint of laceration to her right hand dorsal aspect patient reports accidentally cut herself 2 days ago with a piece of glass Limitations: no limitations Related Data Home Medications ?Medication ?Instructions ?Recorded ?Confirmed hydroxyzine pamoate 50 mg capsule 50 mg PO BID #0 caps 10/17/15 09/27/24 (Vistaril) Held on 09/27/24. Instructions: Resume on 10/28/24. lamotrigine 150 mg tablet 150 mg PO BID #0 tabs 10/17/15 09/27/24 (Lamictal) Held on 09/27/24. Instructions: Resume on 10/28/24. venlafaxine 75 mg capsule,extended 75 mg PO QDAY ##0 10/17/15 09/27/24 release 24 hr (Effexor XR) Held on 09/27/24. Instructions: Resume on 10/28/24. zolpidem 10 mg tablet (Ambien) 10 mg PO HS #0 tabs 10/17/15 09/27/24 Held on 09/27/24. Instructions: Resume on 11/27/24. Previous Rx's ?Medication ?Instructions ?Recorded lorazepam 1 mg tablet 1 mg PO Q6HR PRN ANXIETY #10 tabs 10/17/15 Held on 09/27/24. Instructions: Resume on 10/28/24. bacitracin 500 unit/gram topical 1 applic topical TID 7 days #28.4 12/12/24 ointment grams cephalexin 500 mg capsule 500 mg PO BID 7 days #14 caps 12/12/24 Allergies Allergy/AdvReac Type Severity Reaction Status Date / Time No Known Allergies Allergy Verified 12/07/24 17:01 Review of Systems Review of Systems Systems Reviewed: All systems reviewed, normal except as documented Constitutional Constitutional: Reports system reviewed and no additional complaints, except as documented, Denies fever(s) and Denies headache(s) Eyes Eyes: Reports system reviewed and no additional complaints, except as documented and Denies blurry vision ENT Ears, Nose, Mouth, and Throat: Reports system reviewed and no additional complaints, except as documented, Denies headache(s), Denies nasal congestion and Denies nasal discharge Cardiovascular Cardiovascular: Reports system reviewed and no additional complaints, except as documented, Denies chest pain and Denies dyspnea Respiratory Respiratory: Reports system reviewed and no additional complaints, except as documented, Denies chest congestion, Denies cough and Denies dyspnea Gastrointestinal Gastrointestinal: Reports system reviewed and no additional complaints, except as documented and Denies abdominal pain Integumentary/Breasts Skin/Breast: Reports system reviewed and no additional complaints, except as documented, Denies rash and Reports wounds (laceration right hand ) Neurologic Neurologic: Reports system reviewed and no additional complaints, except as documented, Reports as per HPI and Denies headache(s) Past Medical History Past Medical History CARDIAC: Negative Congestive Heart Failure RESPIRATORY: Negative Chronic Obstructive Pulmonary Disease (COPD) GENITOURINARY: Negative Renal Disease ENDOCRINE: Negative Diabetes Mellitus Type 1 or Diabetes Mellitus Type 2 PSYCHO/SOCIAL: Positive Bipolar Disorder, Depression, Anxiety, Self-Mutilation and Post Traumatic Stress Disorder Social History SMOKING STATUS: Never smoker SUBSTANCE USE: marijuana and methamphetamine ED Exam General Limitations: Present no limitations General appearance: Present alert and in no apparent distress Head Head exam: Present atraumatic, normocephalic and normal inspection Eye Eye exam: Present normal appearance, PERRL and EOMI; Absent conjunctival injection ENT ENT exam: Present normal exam, normal oropharynx and mucous membranes moist Neck Neck exam: Present normal inspection, full ROM and trachea midline Chest Chest inspection: Present normal inspection and symmetric chest wall rise Respiratory Respiratory exam: Present normal lung sounds bilaterally Cardiovascular Cardiovascular exam: Present regular rate, normal rhythm and normal heart sounds Abdominal Exam Abdominal exam: Present soft and normal bowel sounds Extremities Exam Extremities exam: Present normal inspection and full ROM Back Exam Back exam: Present normal inspection and full ROM Neurological Exam Neurological exam: Present alert, oriented X3 and CN II-XII intact Psychiatric Psychiatric exam: Present normal affect and normal mood Skin Skin exam: Present warm, dry and other (Laceration hand 3cm) Course Quality Measures none Vital Signs Vital signs: Vital Signs Temperature 98.1 F 12/12/24 08:52 Pulse Rate 89 12/12/24 08:52 Respiratory Rate 16 12/12/24 08:52 Blood Pressure 146/98 H 12/12/24 08:52 Pulse Oximetry (%) 99 12/12/24 08:52 Oxygen Delivery Method Room Air 12/12/24 08:52 o2 sat 99% r.a wnl Extremity Injury MDM Narrative MDM Narrative:: 34-year-old female presents to the emergency department today for complaint of laceration to her right hand dorsal aspect patient reports accidentally cut herself 2 days ago with a piece of glass On exam patient well-appearing patient does not appear look toxic no acute distress Patient has laceration to the dorsal aspect of the right hand approximately 3 cm wound is irrigated and dressing applied Explained to the patient and family member as this is a 2-day old wound would not close these wounds Patient be treated prophylactically with antibiotics Patient discharged home in no distress to follow-up with primary care doctor in the next 24 to 48 hours and for any worsening symptoms to return to the ER immediately Patient data External records reviewed:: [facility] previous records Clinical information provided by:: patient Social determinants that could affect healthcare access:: none Patient has the following chronic illnesses:: none How is presenting disease/condition affected by chronic disease/condition?: no chronic disease Evaluation data The following diagnostics were reviewed and interpreted by me:: other (specify) (na ) Lab and/or radiology exams considered but not ordered:: na Interpretation Summary: na Medications / Prescriptions Medications or Prescriptions considered but not ordered:: given rx Medication administrations:: given rx Consultations Consultation(s) initiated? (list below): No Diagnosis Upper Extremity Injury Differential Diagnosis: other Most likely diagnosis given after review of the tests above:: Laceration Admission Indicated Admission indicated?: not indicated Admission Request Was there a request for admission?: No Disposition Plan Disposition Plan: Discharge Discharge Attestation Discharge Attestation: The patient and all family members were given an opportunity to ask questions and understood the discharge instructions. Discharge instructions specifically effects, indications for sooner follow up or return to the emergency department, and the expected course of current diagnosis. Patient condition: Stable Discharge Plan Plan Patient Disposition: HOME (Self Care) Discharge Disposition comment: Stable Prescriptions/Referrals Prescriptions/Med Rec: New bacitracin 500 unit/gram ointment 1 applic topical TID 7 Days Qty: 28.4 0RF cephalexin 500 mg capsule 500 mg PO BID 7 Days Qty: 14 0RF No Action lamotrigine [Lamictal] 150 MG tablet 150 mg PO BID Qty: 0 venlafaxine [Effexor XR] 75 MG capsule,extended release 24hr 75 mg PO QDAY Qty: 0 hydroxyzine pamoate [Vistaril] 50 MG capsule 50 mg PO BID Qty: 0 zolpidem [Ambien] 10 MG tablet 10 mg PO HS Qty: 0 lorazepam 1 MG tablet 1 mg PO Q6HR PRN (Reason: ANXIETY) Qty: 10 0RF Problem List Clinical Impression: Laceration of hand, right Patient/Caregiver Discharge Instructions Education Materials: ED Laceration Small or ... Additional Instructions: Please follow up with your primary care doctor in the next 24-48hrs for any worsening symptoms return here immediately Print Language: Ethiopian Stand Alone Forms: Dena Award Info., Patient Portal Info Letter PA/ELECTRONIC SPECIALIST Supervising Physician PA/ELECTRONIC SPECIALIST Supervising Physician: Dr denny
== END 2024-12-12 09:05 | disposition home or self-care (01) ==
LOC: SERX 09:07
PROVIDERS: Emergency Provider Emergency Medicine
DX: S61.411A Laceration without foreign body of right hand, initial encounter (principal); W25.XXXA Contact with sharp glass, initial encounter
CPT/HCPCS: 99281

== ENCOUNTER 2024-12-15 18:50 | Emergency (ER) | payer MEDICAID, SELFPAY ==
[2024-12-15 18:57] VITALS: BP 141/90; PULSE 105; RESP 18; TEMP 36.9; O2SAT 99; BMI 21.9
[2024-12-15 19:39] VITALS: BMI 21.9
--- NOTE | 2024-12-15 19:55 | PD.EDSUICD ---
ED Psych RME/HPI General Chief Complaint: Suicidal Stated Complaint: BEHAVIORAL Time Seen by Provider: 12/15/24 20:13 Arrival date/time: 12/15/24 18:50 RME / HPI RME / HPI Narrative: Dr. Card?s Main ED Evaluation: 34yo female presenting on 5150 hold after reportedly verbalizing SI, apparently was experiencing paranoid delusions and became hysterical, prompting her to call 911. Patient is homeless and suffers from ADHD and major depression who reportedly has been on her medications. Notes sleep disturbance, reduction in concentration, and denies any change in appetite. Denies auditory hallucinations or active SI/HI. Reports recent psychosocial stressors that have escalated recently. PSH unremarkable. Social history includes tobacco, occasional alcohol, and methamphetamine use. NKA. Related Data Home Medications ?Medication ?Instructions ?Recorded ?Confirmed hydroxyzine pamoate 50 mg capsule 50 mg PO BID #0 caps 10/17/15 09/27/24 (Vistaril) Held on 09/27/24. Instructions: Resume on 10/28/24. lamotrigine 150 mg tablet 150 mg PO BID #0 tabs 10/17/15 09/27/24 (Lamictal) Held on 09/27/24. Instructions: Resume on 10/28/24. venlafaxine 75 mg capsule,extended 75 mg PO QDAY ##0 10/17/15 09/27/24 release 24 hr (Effexor XR) Held on 09/27/24. Instructions: Resume on 10/28/24. zolpidem 10 mg tablet (Ambien) 10 mg PO HS #0 tabs 10/17/15 09/27/24 Held on 09/27/24. Instructions: Resume on 11/27/24. Previous Rx's ?Medication ?Instructions ?Recorded lorazepam 1 mg tablet 1 mg PO Q6HR PRN ANXIETY #10 tabs 10/17/15 Held on 09/27/24. Instructions: Resume on 10/28/24. bacitracin 500 unit/gram topical 1 applic topical TID 7 days #28.4 12/12/24 ointment grams cephalexin 500 mg capsule 500 mg PO BID 7 days #14 caps 12/12/24 Allergies Allergy/AdvReac Type Severity Reaction Status Date / Time No Known Allergies Allergy Verified 12/07/24 17:01 Review of Systems Review of Systems Systems Reviewed: All systems reviewed, normal except as documented ED Exam Narrative Physical exam: GENERAL APPEARANCE: alert and oriented x 4, well-developed, well-nourished, unkempt, no acute distress VITALS: All vitals were reviewed and the pulse ox is 99% on room air, which is normal according to my interpretation. HEENT: Normocephalic, atraumatic; pupils equal, round, reactive to light; EOMI; mucous membranes pink, moist; oropharynx clear NECK: Supple LUNGS: CTABL; no wheezes, no rales, no rhonchi HEART: Regular rate, regular rhythm; normal S1, S2; no murmurs ABDOMEN: non distended; normal BS; soft, no tenderness, no guarding, no rebound; no masses, no organomegaly, no hernia BACK: no CVA tenderness EXTREMITIES: atraumatic; no edema NEUROLOGIC: awake; alert and oriented x4; cranial nerves II-XII grossly intact; no focal sensory or motor deficits PSYCHIATRIC: mildly anxious mood and affect SKIN: warm, dry, normal color; no rashes; 4cm oval deep skin avulsion to the lateral dorsal aspect of the right hand at the level of the distal 5th metacarpal without deep tendon or ligament involvement, distal function is intact Course Quality Measures none Orders Category Date Time Status Acetaminophen Stat Lab 12/15/24 20:12 Completed Alcohol, Blood Medical Stat Lab 12/15/24 20:12 Completed Alcohol, Urine Stat Lab 12/16/24 03:16 Completed Basic Metabolic Panel Stat Lab 12/15/24 20:12 Completed CBC Stat Lab 12/15/24 20:12 Completed Drug Screen,Urine Stat Lab 12/16/24 03:16 Completed HCG Qualitative,Urine Stat Lab 12/16/24 03:16 Completed Lidocaine 1% 20 ml [Xylocaine 1% 20 ML] Med 12/15/24 20:13 Discontinued 10 ml INFL X1 ONE Sodium Chloride 0.9% 1000 ml [Ns] 1,000 ml Med 12/15/24 20:12 Discontinued IV 999 mls/hr TET,DIP/PERT AC (Adult)-Tdap [Boostrix Adult (Tdap) Med 12/15/24 20:12 Discontinued Vacc] 0.5 ml IMI .ONCE ONE ceFAZolin/D5W 1 GM IVPB [Ancef Ivpb] Med 12/15/24 20:12 Discontinued 1 gm in 50 ml IV X1 Vital Signs Vital signs: Vital Signs Temperature 98.5 F 12/15/24 18:57 Pulse Rate 105 H 12/15/24 18:57 Respiratory Rate 18 12/15/24 18:57 Blood Pressure 141/90 H 12/15/24 18:57 Pulse Oximetry (%) 99 12/15/24 18:57 Oxygen Delivery Method Room Air 12/15/24 18:57 Psych MDM Narrative [facility] Narrative:: Scribe Attestation: 12/15/24 - Caren Solitario am scribing for and in the presence of Dr. Card. 34yo female presenting on 5150 hold after reportedly verbalizing SI, apparently was experiencing paranoid delusions and became hysterical, prompting her to call 911. Patient is homeless and suffers from ADHD and major depression who reportedly has been on her medications. Please see PE findings. Patient underwent basic psychiatric work-up which was positive for methamphetamine and marijuana use. Patient emotionally labile and occasionally noncompliant with basic protocols throughout stay. Patient refused to offer to attempt to repair right hand avulsion versus debridement. Patient is medically clear for psychiatric evaluation. AM provider to follow. Dx: SI, polysubstance abuse, right hand avulsion Patient data External records reviewed:: [facility] previous records (Per chart review, patient was seen here on 12/12/24 for right hand laceration.) and Other (specify) (5150 form) Clinical information provided by:: patient and law enforcement Social determinants that could affect healthcare access:: mental health Patient has the following chronic illnesses:: bipolar disorder, depression How is presenting disease/condition affected by chronic disease/condition?: exacerbated by Evaluation data The following diagnostics were reviewed and interpreted by me:: lab results Lab and/or radiology exams considered but not ordered:: none Interpretation Summary: See MDM Medications / Prescriptions Medications or Prescriptions considered but not ordered:: none Medication administrations:: Medication Administration History Discontinued Medications Diphtheria/Tetanus/Acell Pertussis (Diphth,Pertuss(Acell),Tet Vac 0.5 Ml Syr- Adult) 0.5 ml IMi .ONCE ONE Stop: 12/15/24 20:13 Last Admin: 12/15/24 20:51 Dose: Not Given Documented By: AC Non-Admin Reason: Patient Refused Cefazolin Sodium/Dextrose (Ancef Ivpb) 1 gm in 50 mls @ 100 mls/hr IV X1 ONE Stop: 12/15/24 20:41 Last Admin: 12/15/24 20:51 Dose: Not Given Documented By: CLEMENT Non-Admin Reason: Patient Refused Sodium Chloride (Ns) 1,000 mls @ 999 mls/hr IV .Q1H1M ONE Stop: 12/15/24 21:12 Last Admin: 12/15/24 20:51 Dose: Not Given Documented By: CLEMENT Non-Admin Reason: Patient Refused Lidocaine HCl (Lidocaine Hcl 1% 20 Ml Vial) 10 ml INFL X1 ONE Stop: 12/15/24 20:14 Last Admin: 12/16/24 00:53 Dose: Not Given Documented By: CLEMENT Non-Admin Reason: Patient Refused none Consultations Consultation(s) initiated? (list below): No Diagnosis Psych Differential Diagnosis: acute psychosis, chronic schizophrenia, suicidal ideation, bipolar disorder, drug-induced psychotic disorder and acute anxiety Most likely diagnosis given after review of the tests above:: see clinical impression below Admission Indicated Admission indicated?: not indicated Admission Request Was there a request for admission?: No Disposition Plan Disposition Plan: other (specify) (Signed out to Dr. Shin at 6 AM. ) Discharge Plan Prescriptions/Referrals Prescriptions/Med Rec: No Action lamotrigine [Lamictal] 150 MG tablet 150 mg PO BID Qty: 0 venlafaxine [Effexor XR] 75 MG capsule,extended release 24hr 75 mg PO QDAY Qty: 0 hydroxyzine pamoate [Vistaril] 50 MG capsule 50 mg PO BID Qty: 0 zolpidem [Ambien] 10 MG tablet 10 mg PO HS Qty: 0 lorazepam 1 MG tablet 1 mg PO Q6HR PRN (Reason: ANXIETY) Qty: 10 0RF bacitracin 500 unit/gram ointment 1 applic topical TID 7 Days Qty: 28.4 0RF cephalexin 500 mg capsule 500 mg PO BID 7 Days Qty: 14 0RF Referrals: No Primary/Family,Physician [Primary Care Provider] - In 1 week Problem List Clinical Impression: Suicidal ideation, Polysubstance abuse, Avulsion of skin of right hand Patient/Caregiver Discharge Instructions Print Language: Mohawk
--- NOTE | 2024-12-15 20:28 | PC.NURSE ---
Pt is refusing any patient care to be performed including: IV start access, administering medications or cleaning the wound to her right hand for lac repair. Provider notified at this time. Pt currently GCS 15, alert and oriented.
[2024-12-16 00:01] VITALS: BP 133/86; PULSE 86; RESP 19; TEMP 37.1; O2SAT 97
[2024-12-16 00:16] LABS: Basophils # (Auto) 0.1 Thou/mm3 (0.0-0.2); Basophils % (Auto) 1 % (0-2.5); Eosinophils # (Auto) 0.2 Thou/mm3 (0.0-0.5); Eosinophils % (Auto) 3 % (0-10); Hematocrit 37.6 % (36.0-46.0); Hemoglobin 12.6 g/dL (12.0-16.0); Immature Granulocytes Auto 0.01 Thou/mm3 (0.00-0.00); Lymphocytes # (Auto) 1.4 Thou/mm3 (1.0-4.8); Lymphocytes % (Auto) 20 % (10-50); Mean Corpuscular HGB Conc 33.5 g/dl (31.0-37.0); Mean Corpuscular Hemoglobin 28.8 pg (25.0-35.0); Mean Corpuscular Volume 86 fL (80-100); Monocytes # (Auto) 0.9 Thou/mm3 (0.0-0.8); Monocytes % (Auto) 14 % (0-12); Neutrophils # (Auto) 4.4 Thou/mm3 (1.8-7.7); Neutrophils % (Auto) 64 % (37-80); Nucleated Red Blood Cell # 0.00 Thou/mm3 (0.00-0.00); Nucleated Red Blood Cell % 0 /100 WBC (0); Platelet Count 308 Thou/mm3 (140-440); RDW Standard Deviation 39.2 fL (36.4-46.3); Red Blood Count 4.37 Miln/mm3 (4.00-5.20); White Blood Count 6.9 Thou/mm3 (3.6-11.0)
[2024-12-16 00:34] LABS: Acetaminophen < 2.0 mcg/mL (10.0-20.0); Alcohol, Blood Medical < 3.0 mg/dL (0-10.0); Anion Gap 8 (7-16); BUN/Creatinine Ratio 17 Ratio (12-20); Blood Urea Nitrogen 12 mg/dL (9-23); Calcium 8.8 mg/dL (8.3-10.6); Carbon Dioxide 27.2 mMol/L (20.0-31.0); Chloride 109 mMol/L (98-107); Creatinine (Component) 0.7 mg/dL (0.6-1.3); Estimated Creatinine Clearance 99.6 mL/min (>60); Glucose 89 mg/dL (74-106); Osmolality,Calculated 285 (275-295); Potassium 3.6 mMol/L (3.4-5.1); Sodium 144 mMol/L (136-145); eGFR > 60 See Note
[2024-12-16 04:42] LABS: HCG Qualitative,Urine Negative
[2024-12-16 04:47] LABS: Alcohol, Urine Negative (Negative); Amphetamine/Methamp Scrn,U Positive (Negative); Barbiturate Screen,Urine Negative (Negative); Benzodiazepines Screen,Urine Negative (Negative); Benzoylecgonine Screen, Ur Negative (Negative); Fentanyl Screen,Urine Negative (Negative); Opiate Screen,Urine Negative (Negative); THC Screen,Urine Positive (Negative)
[2024-12-16 06:19] VITALS: BP 136/87; PULSE 81; RESP 18; TEMP 36.6; O2SAT 99
--- NOTE | 2024-12-16 08:10 | PC.NURSE ---
Pt. here to room 7 from the [place] [place] [employer] last night, pt. states she doesn't remember last night pt. states she knows she was angry, pt. denies any suicidal or homicidal ideation at this time. Pt. asks for coffee and cranberry juice, given. Pt. is being cooperative. HANDYPERSON is bedside.
[2024-12-16 08:29] VITALS: BP 132/86; PULSE 92; RESP 18; TEMP 36.8; O2SAT 99
--- NOTE | 2024-12-16 08:59 | EDNOTE_ITS ---
Emergency Room Addendum Addendum Narrative: Care assumed from Dr. Gonzalez. Past medical, surgical, social and family history reviewed. Vitals and home medications reviewed. Results and treatment plan discussed. I will assume the care of the patient at this time and will follow the patient, pending psychiatric placement. Please refer to the emergency department record for history and examination from initial visit. Patient remained stable while under my care. Pt. here to room 7 from the [place] [employer] last night, pt. states she doesn't remember last night pt. states she knows she was angry, pt. denies any suicidal or homicidal ideation at this time. Pt. asks for coffee and cranberry juice, given. Pt. is being cooperative. RETAIL MAINTENANCE TECHNICIAN is bedside. Patient is stable for discharge and outpatient follow-up as scheduled.
--- NOTE | 2024-12-16 09:30 | PC.NURSE ---
Pt. wants her right hand wrapped, triple antibiotic applied to right hand and right hand wrapped. Pt. tolerated well.
--- NOTE | 2024-12-16 10:14 | PC.CC ---
Addendum entered by Kaur Correa 12/16/24 13:33: [id number] attempted to re-eval pt but pt was already discharged. Pt is on a 5150 by [facility] for DTS/Gravely disabled. Pt was discharged and ASW was not able to conduct the re-evaluation prior to the pt being discharged. Pt was discharged as per form setter. Original Note: [id number]-After staffing this case with SEGMENTAL WALL INSTALLER, Director Jasmine Spivey, it was advised to allow pt to sober up a bit to perform a re-evaluation.
== END 2024-12-16 09:40 | disposition home or self-care (01) ==
PROVIDERS: Emergency Provider Emergency Medicine
DX: R45.851 Suicidal ideations (principal); F22 Delusional disorders; F44.9 Dissociative and conversion disorder, unspecified; F15.10 Other stimulant abuse, uncomplicated; F32.9 Major depressive disorder, single episode, unspecified; F90.9 Attention-deficit hyperactivity disorder, unspecified type; S61.401A Unspecified open wound of right hand, initial encounter; Z59.00 Homelessness unspecified; Z72.0 Tobacco use; W45.8XXA Other foreign body or object entering through skin, initial encounter
CPT/HCPCS: 36415; 80048; 80307; 80320; 80329; 81025; 85025; 96127; 99283; G0480

== ENCOUNTER 2024-12-31 08:03 | Emergency (ER) | payer MEDICAID, SELFPAY ==
[2024-12-31 08:13] VITALS: BP 143/106; PULSE 140; RESP 24; TEMP 36.7; O2SAT 97
[2024-12-31 08:24] VITALS: BMI 21.4
[2024-12-31 09:16] LABS: Collection Type, Urine Clean Catch; RBC,Urine 0 /hpf (0-3); WBC,Urine 0 /hpf (0-5)
[2024-12-31 09:29] LABS: Bacteria,Urine Rare; Bilirubin,Urine Negative (Negative); Blood,Urine Negative (Negative); Clarity,Urine Turbid (Clear/Hazy); Color,Urine Yellow (Lt Yel-Yel); Culture Indicated,Urine Not Indicated; Glucose, Urine Negative (Negative); Ketones,Urine 1+ (Negative); Leukocyte Esterase,Urine Negative (Negative); Nitrite,Urine Negative (Negative); PH,Urine 5.5 (5.0-7.0); Protein,Urine 1+ (Neg - Trace); Specific Gravity,Urine 1.034 (1.001-1.035); Squamous Epithelial Cell,Urine 13 /hpf (0-5); Urobilinogen,Urine Negative mg/dL (0.0-1.0)
[2024-12-31 09:33] LABS: Basophils # (Auto) 0.1 Thou/mm3 (0.0-0.2); Basophils % (Auto) 1 % (0-2.5); Eosinophils # (Auto) 0.1 Thou/mm3 (0.0-0.5); Eosinophils % (Auto) 1 % (0-10); Hematocrit 36.5 % (36.0-46.0); Hemoglobin 12.4 g/dL (12.0-16.0); Immature Granulocytes Auto 0.05 Thou/mm3 (0.00-0.00); Lymphocytes # (Auto) 1.4 Thou/mm3 (1.0-4.8); Lymphocytes % (Auto) 12 % (10-50); Mean Corpuscular HGB Conc 34.0 g/dl (31.0-37.0); Mean Corpuscular Hemoglobin 29.2 pg (25.0-35.0); Mean Corpuscular Volume 86 fL (80-100); Monocytes # (Auto) 1.1 Thou/mm3 (0.0-0.8); Monocytes % (Auto) 9 % (0-12); Neutrophils # (Auto) 9.6 Thou/mm3 (1.8-7.7); Neutrophils % (Auto) 78 % (37-80); Nucleated Red Blood Cell # 0.00 Thou/mm3 (0.00-0.00); Nucleated Red Blood Cell % 0 /100 WBC (0); Platelet Count 307 Thou/mm3 (140-440); RDW Standard Deviation 39.9 fL (36.4-46.3); Red Blood Count 4.24 Miln/mm3 (4.00-5.20); White Blood Count 12.4 Thou/mm3 (3.6-11.0)
[2024-12-31 09:34] LABS: Alanine Aminotransferase 43 U/L (10-49); Albumin, Serum 4.7 gm/dL (3.5-5.0); Albumin/Globulin Ratio 2.0 (1.2-2.2); Alcohol, Blood Medical < 3.0 mg/dL (0-10.0); Alkaline Phosphatase 88 U/L (46-116); Anion Gap 7 (7-16); Aspartate Amino Transferase 87 U/L (0-34); BUN/Creatinine Ratio 14 Ratio (12-20); Bilirubin,Total 2.1 mg/dL (0.3-1.2); Blood Urea Nitrogen 11 mg/dL (9-23); Calcium 9.2 mg/dL (8.3-10.6); Calcium (Corrected) 9.2 mg/dL (8.5-10.1); Carbon Dioxide 30.9 mMol/L (20.0-31.0); Chloride 106 mMol/L (98-107); Creatinine (Component) 0.8 mg/dL (0.6-1.3); Estimated Creatinine Clearance 87.2 mL/min (>60); Globulin 2.3 gm/dL (2.3-3.5); Glucose 110 mg/dL (74-106); Osmolality,Calculated 287 (275-295); Potassium 3.5 mMol/L (3.4-5.1); Sodium 144 mMol/L (136-145); Total Protein 7.0 gm/dL (5.7-8.2); eGFR > 60 See Note
[2024-12-31 09:34] LABS: Amphetamine/Methamp Scrn,U Positive (Negative); Barbiturate Screen,Urine Negative (Negative); Benzodiazepines Screen,Urine Negative (Negative); Benzoylecgonine Screen, Ur Negative (Negative); Fentanyl Screen,Urine Negative (Negative); Opiate Screen,Urine Negative (Negative); THC Screen,Urine Positive (Negative)
[2024-12-31] MEDS: HALOPERIDOL LACT INJ 5 MG/ML VIAL IM (09:36)
[2024-12-31] MEDS: LORazepam 2 MG/ML VIAL IM (09:36)
--- NOTE | 2024-12-31 09:37 | PD.EDPSYCH ---
ED Psych RME/HPI General Chief Complaint: Psychiatric Symptoms Stated Complaint: WEAK, FEELS LIKE SHE GONNA PASS OUT, DIARRHEA Time Seen by Provider: 12/31/24 08:49 Arrival date/time: 12/31/24 08:03 RME / HPI RME / HPI Narrative: 34 year old female patient with history of bipolar disorder, PTSD, depression, meth abuse presents to the ED for evaluation of I don't feel good today. Reports feeling my body is burning and diarrhea. No other complaints reported. Related Data Home Medications ?Medication ?Instructions ?Recorded ?Confirmed hydroxyzine pamoate 50 mg capsule 50 mg PO BID #0 caps 10/17/15 09/27/24 (Vistaril) Held on 09/27/24. Instructions: Resume on 10/28/24. lamotrigine 150 mg tablet 150 mg PO BID #0 tabs 10/17/15 09/27/24 (Lamictal) Held on 09/27/24. Instructions: Resume on 10/28/24. venlafaxine 75 mg capsule,extended 75 mg PO QDAY ##0 10/17/15 09/27/24 release 24 hr (Effexor XR) Held on 09/27/24. Instructions: Resume on 10/28/24. zolpidem 10 mg tablet (Ambien) 10 mg PO HS #0 tabs 10/17/15 09/27/24 Held on 09/27/24. Instructions: Resume on 11/27/24. Previous Rx's ?Medication ?Instructions ?Recorded lorazepam 1 mg tablet 1 mg PO Q6HR PRN ANXIETY #10 tabs 10/17/15 Held on 09/27/24. Instructions: Resume on 10/28/24. Allergies Allergy/AdvReac Type Severity Reaction Status Date / Time No Known Allergies Allergy Verified 12/31/24 08:07 Review of Systems Review of Systems Systems Reviewed: All systems reviewed, normal except as documented Past Medical History Past Medical History PSYCHO/SOCIAL: Positive Bipolar Disorder, Depression, Anxiety, Self-Mutilation and Post Traumatic Stress Disorder Social History SMOKING STATUS: Former smoker SUBSTANCE USE: marijuana and methamphetamine ED Exam Narrative Physical exam: GENERAL APPEARANCE:? alert and oriented x 4, well-developed, well-nourished, no acute distress HEENT: normocephalic, atraumatic NECK: supple LUNGS: no respiratory distress, normal effort HEART: good peripheral perfusion ABDOMEN: non distended EXTREMITIES:? atraumatic NEUROLOGIC: awake; alert and oriented x4; cranial nerves II-XII grossly intact PSYCHIATRIC:? appropriate mood and affect SKIN: warm, dry, normal color; no rashes Course Course Course Narrative: 926: RN reports the patient is becoming anxious, agitated, and harder to redirect. Ordered Haldol, Benadryl, and Ativan. 1645: Patient remained stable after medications. Was given food which she tolerated well. Will DC home. Quality Measures none Orders Category Date Time Status One-to-one observation NOW Care 12/31/24 08:45 Completed Alcohol, Blood Medical Stat Lab 12/31/24 09:08 Completed CBC Stat Lab 12/31/24 09:08 Completed CMP [Comprehensive Metabolic Panel] Stat Lab 12/31/24 09:08 Completed Drug Screen,Urine Stat Lab 12/31/24 09:13 Completed UA, C/S IF [Urinalysis, C/S if Indicated] Stat Lab 12/31/24 09:11 Completed DiphenhydrAMINE INJ [Benadryl Inj] Med 12/31/24 09:27 Discontinued 50 mg IM X1 ONE Haloperidol Lactate [Haldol Inj] Med 12/31/24 09:27 Discontinued 5 mg IM X1 ONE LORazepam [Ativan Inj] Med 12/31/24 09:27 Discontinued 2 mg IM X1 ONE Vital Signs Vital signs: Vital Signs Temperature 98.1 F 12/31/24 08:13 Pulse Rate 140 H 12/31/24 08:13 Respiratory Rate 24 H 12/31/24 08:13 Blood Pressure 143/106 H 12/31/24 08:13 Pulse Oximetry (%) 97 12/31/24 08:13 Oxygen Delivery Method Room Air 12/31/24 08:13 Pulse ox is 97% on room air which is adequate. Psych MDM Narrative MDM Narrative:: Margaret Solitario am scribing for and in the presence of Dr. Wong. Patient data External records reviewed:: [facility] previous records Clinical information provided by:: patient Social determinants that could affect healthcare access:: mental health (and housing ) Patient has the following chronic illnesses:: bipolar disorder, PTSD, depression, meth abuse How is presenting disease/condition affected by chronic disease/condition?: exacerbated by Evaluation data The following diagnostics were reviewed and interpreted by me:: lab results Lab and/or radiology exams considered but not ordered:: None Interpretation Summary: WBC 12.4 Total bilirubin 2.1, AST 87, ALT 43 UTox positive for meth and marijuana, alcohol level < 3.0 Medications / Prescriptions Medications or Prescriptions considered but not ordered:: None Medication administrations:: Medication Administration History Discontinued Medications Diphenhydramine HCl (Diphenhydramine Inj 50 Mg/Ml Vial) 50 mg IM X1 ONE Stop: 12/31/24 09:28 Last Admin: 12/31/24 09:36 Dose: 50 mg Documented By: VL Haloperidol Lactate (Haloperidol Lact Inj 5 Mg/Ml Vial) 5 mg IM X1 ONE Stop: 12/31/24 09:28 Last Admin: 12/31/24 09:36 Dose: 5 mg Documented By: VL Lorazepam (Lorazepam 2 Mg/Ml Vial) 2 mg IM X1 ONE Stop: 12/31/24 09:28 Last Admin: 12/31/24 09:36 Dose: 2 mg Documented By: ALEXEI See above Consultations Consultation(s) initiated? (list below): No Diagnosis Psych Differential Diagnosis: acute psychosis, chronic schizophrenia, bipolar disorder, drug-induced psychotic disorder and acute anxiety Most likely diagnosis given after review of the tests above:: Drug abuse Diarrhea Methamphetamine abuse Admission Indicated Admission indicated?: not indicated Explain why admission is indicated or not indicated:: With no condition needing emergent intervention, there was no indication for admission. Admission Request Was there a request for admission?: No Disposition Plan Disposition Plan: Discharge Discharge Attestation Discharge Attestation: The patient and all family members were given an opportunity to ask questions and understood the discharge instructions. Discharge instructions specifically effects, indications for sooner follow up or return to the emergency department, and the expected course of current diagnosis. Patient condition: Stable Discharge Plan Plan Patient Disposition: HOME (Self Care) Prescriptions/Referrals Prescriptions/Med Rec: No Action lamotrigine [Lamictal] 150 MG tablet 150 mg PO BID Qty: 0 venlafaxine [Effexor XR] 75 MG capsule,extended release 24hr 75 mg PO QDAY Qty: 0 hydroxyzine pamoate [Vistaril] 50 MG capsule 50 mg PO BID Qty: 0 zolpidem [Ambien] 10 MG tablet 10 mg PO HS Qty: 0 lorazepam 1 MG tablet 1 mg PO Q6HR PRN (Reason: ANXIETY) Qty: 10 0RF Referrals: Charli Waite MD [Primary Care Provider, Family Practice] - In 1 week Problem List Clinical Impression: Drug abuse, Diarrhea, Methamphetamine abuse Patient/Caregiver Discharge Instructions Education Materials: Understanding Methamphetamine ... Print Language: Amharic Stand Alone Forms: Dena Award Info., Patient Portal Info Letter
[2024-12-31 10:55] VITALS: BP 128/70; PULSE 110; RESP 18; TEMP 36.9; O2SAT 98
[2024-12-31 12:28] VITALS: BP 130/75; PULSE 95; RESP 16; TEMP 37.2; O2SAT 97
[2024-12-31 15:57] VITALS: BP 135/84; PULSE 98; RESP 18; TEMP 37.1; O2SAT 98
== END 2024-12-31 17:00 | disposition home or self-care (01) ==
PROVIDERS: Emergency Provider Emergency Medicine; PCP Family Medicine
DX: R19.7 Diarrhea, unspecified (principal); F15.10 Other stimulant abuse, uncomplicated; F31.9 Bipolar disorder, unspecified
CPT/HCPCS: 36415; 80053; 80307; 80320; 81001; 85025; 96372; 99283; J1200; J1630; J2060; G0480

== ENCOUNTER 2025-01-13 08:54 | Emergency (ER) | payer MEDICAID, SELFPAY ==
[2025-01-13 08:56] VITALS: BP 159/84; PULSE 102; RESP 20; TEMP 36.6; O2SAT 99
--- NOTE | 2025-01-13 09:00 | PD.EDPSYCH ---
ED Psych RME/HPI General Chief Complaint: Psychiatric Symptoms Stated Complaint: MENTAL EVAL Time Seen by Provider: 01/13/25 08:55 Arrival date/time: 01/13/25 08:54 Mode of arrival: other (Will enforcement) Limitations: altered mental status RME / HPI RME / HPI Narrative: Patient is a 34-year-old female with medical history notable for substance use disorder, depression, homelessness is in the emergency department brought in by law enforcement on a hold as patient is altered. Patient not answering questions linearly. Denies any chest pain shortness of breath belly pain abdominal pain headache. Patient has no complaints other than a lesion on her right hand that has been there for some time. Related Data Home Medications ?Medication ?Instructions ?Recorded ?Confirmed hydroxyzine pamoate 50 mg capsule 50 mg PO BID #0 caps 10/17/15 09/27/24 (Vistaril) Held on 09/27/24. Instructions: Resume on 10/28/24. lamotrigine 150 mg tablet 150 mg PO BID #0 tabs 10/17/15 09/27/24 (Lamictal) Held on 09/27/24. Instructions: Resume on 10/28/24. venlafaxine 75 mg capsule,extended 75 mg PO QDAY ##0 10/17/15 09/27/24 release 24 hr (Effexor XR) Held on 09/27/24. Instructions: Resume on 10/28/24. zolpidem 10 mg tablet (Ambien) 10 mg PO HS #0 tabs 10/17/15 09/27/24 Held on 09/27/24. Instructions: Resume on 11/27/24. bupropion HCl 100 mg tablet,12 hr 100 mg PO HS 01/13/25 01/13/25 sustained-release haloperidol 5 mg tablet 5 mg PO HS 01/13/25 01/13/25 trazodone 50 mg tablet 50 mg PO HS 01/13/25 01/13/25 Previous Rx's ?Medication ?Instructions ?Recorded lorazepam 1 mg tablet 1 mg PO Q6HR PRN ANXIETY #10 tabs 10/17/15 Held on 09/27/24. Instructions: Resume on 10/28/24. Allergies Allergy/AdvReac Type Severity Reaction Status Date / Time No Known Allergies Allergy Verified 01/13/25 10:13 Review of Systems Review of Systems Systems Reviewed: All systems reviewed, normal except as documented Past Medical History Past Medical History PSYCHO/SOCIAL: Positive Bipolar Disorder, Depression, Anxiety, Self-Mutilation and Post Traumatic Stress Disorder Social History SMOKING STATUS: Current every day smoker SUBSTANCE USE: marijuana and methamphetamine ED Exam General Limitations: Present altered mental status General appearance: Present alert and other (agitated, at times aggresive, intermittently explosive, intermittently follows commands, making nonsensical statements ) Head Head exam: Present atraumatic and normocephalic Eye Eye exam: Present normal appearance and EOMI ENT ENT exam: Present normal exam, normal oropharynx and mucous membranes moist Neck Neck exam: Present normal inspection and full ROM Chest Chest inspection: Present normal inspection Respiratory Respiratory exam: Present normal lung sounds bilaterally Cardiovascular Cardiovascular exam: Present regular rate, normal rhythm and normal heart sounds Abdominal Exam Abdominal exam: Present soft and normal bowel sounds Extremities Exam Extremities exam: Present full ROM and other (Patient has a skin tag on the right hand with no surrounding erythema ) Neurological Exam Neurological exam: Present alert and oriented X3 Psychiatric Psychiatric exam: Present other (agitated, at times aggresive, intermittently explosive, intermittently follows commands, making nonsensical statements ) Skin Skin exam: Present warm, dry, intact and normal color Course Quality Measures none Orders Category Date Time Status 1799 Psychiatric Hold NOW Care 01/13/25 09:15 Ordered EKG (ED ONLY) *Do not use* NOW Care 01/13/25 09:04 Completed One-to-one observation NOW Care 01/13/25 09:20 Active Suicide precautions NOW Care 01/13/25 09:21 Active Diet Regular Diet 01/13/25 Dinner Active EKG (ED Only) Stat Exams 01/13/25 09:03 Draft Acetaminophen Stat Lab 01/13/25 09:10 Completed Alcohol, Blood Medical Stat Lab 01/13/25 09:10 Completed CBC Stat Lab 01/13/25 09:10 Completed CMP [Comprehensive Metabolic Panel] Stat Lab 01/13/25 09:10 Completed Drug Screen,Urine Stat Lab 01/13/25 11:34 Completed HCG,Qualitative Serum Stat Lab 01/13/25 09:10 Completed Salicylate Stat Lab 01/13/25 09:10 Completed UA, C/S IF [Urinalysis, C/S if Indicated] Stat Lab 01/13/25 11:34 Completed DiphenhydrAMINE INJ [Benadryl Inj] Med 01/13/25 08:56 Discontinued 50 mg IM X1 ONE Haloperidol Lactate [Haldol Inj] Med 01/13/25 08:56 Discontinued 5 mg IM X1 ONE LORazepam [Ativan Inj] Med 01/13/25 08:56 Discontinued 2 mg IM X1 ONE OLANZapine [ZyPREXA] Med 01/13/25 09:31 Discontinued 10 mg PO X1 ONE Late Tray Request Routine Oth 01/13/25 16:56 Active Vital Signs Vital signs: Vital Signs Temperature 97.8 F 01/13/25 08:56 Pulse Rate 102 H 01/13/25 08:56 Respiratory Rate 20 01/13/25 08:56 Blood Pressure 159/84 H 01/13/25 08:56 Pulse Oximetry (%) 99 01/13/25 08:56 Oxygen Delivery Method Room Air 01/13/25 08:56 Pulse ox is 99% on room air which is adequate. Psych MDM Narrative MDM Narrative:: Patient is a 34-year-old female with medical history notable for depression, homelessness, polysubstance use is in the emergency department on a hold placed by law enforcement for danger to self. Vital signs and exam as listed. Concern for derangement of patient's baseline psychiatric conditions, also concern for substance intoxication. Patient presented agitated, and threatening staff. Medications ordered for agitation however patient was able to be redirected and calm down. Ordered labs, EKG. EKG interpreted by me, performed at 913, heart rate 98, sinus rhythm, normal intervals, motion artifact, nonspecific T wave changes, not a cardiac alert. 1135: Patient is medically cleared for mental health evaluation. 1800: Care signed out to Dr. Sumner pending mental health evaluation and final disposition. Patient data External records reviewed:: [facility] previous records Clinical information provided by:: patient and law enforcement Social determinants that could affect healthcare access:: mental health Patient has the following chronic illnesses:: See MDM How is presenting disease/condition affected by chronic disease/condition?: exacerbated by Evaluation data The following diagnostics were reviewed and interpreted by me:: lab results and EKG tracing(s) Lab and/or radiology exams considered but not ordered:: None Interpretation Summary: See MDM Medications / Prescriptions Medications or Prescriptions considered but not ordered:: None Medication administrations:: Medication Administration History Discontinued Medications Diphenhydramine HCl (Diphenhydramine Inj 50 Mg/Ml Vial) 50 mg IM X1 ONE Stop: 01/13/25 08:57 Last Admin: 01/13/25 10:24 Dose: Not Given Documented By: VRS Non-Admin Reason: Cancelled by Provider Haloperidol Lactate (Haloperidol Lact Inj 5 Mg/Ml Vial) 5 mg IM X1 ONE Stop: 01/13/25 08:57 Last Admin: 01/13/25 10:24 Dose: Not Given Documented By: VRS Non-Admin Reason: Cancelled by Provider Lorazepam (Lorazepam 2 Mg/Ml Vial) 2 mg IM X1 ONE Stop: 01/13/25 08:57 Last Admin: 01/13/25 10:24 Dose: Not Given Documented By: VRS Non-Admin Reason: Cancelled by Provider Olanzapine (Olanzapine 5 Mg Tablet) 10 mg PO X1 ONE Stop: 01/13/25 09:32 Last Admin: 01/13/25 10:49 Dose: 10 mg Documented By: VRS See above Consultations Consultation(s) initiated? (list below): Yes Diagnosis Psych Differential Diagnosis: other Most likely diagnosis given after review of the tests above:: See MDM Admission Indicated Admission indicated?: not indicated Explain why admission is indicated or not indicated:: Signed out pending final disposition. Admission Request Was there a request for admission?: No Disposition Plan Disposition Plan: other (specify) (Signed out to Dr. Sumner ) Discharge Plan Prescriptions/Referrals Prescriptions/Med Rec: No Action lamotrigine [Lamictal] 150 MG tablet 150 mg PO BID Qty: 0 venlafaxine [Effexor XR] 75 MG capsule,extended release 24hr 75 mg PO QDAY Qty: 0 hydroxyzine pamoate [Vistaril] 50 MG capsule 50 mg PO BID Qty: 0 zolpidem [Ambien] 10 MG tablet 10 mg PO HS Qty: 0 lorazepam 1 MG tablet 1 mg PO Q6HR PRN (Reason: ANXIETY) Qty: 10 0RF haloperidol 5 mg tablet 5 mg PO HS Patient Comments: TAKE 1 TABLET BY MOUTH EVERY NIGHT bupropion HCl 100 mg tablet sustained-release 12 hr 100 mg PO HS Patient Comments: TAKE 1 TABLET BY MOUTH EVERY NIGHT trazodone 50 mg tablet 50 mg PO HS Patient Comments: TAKE 1 TABLET BY MOUTH EVERY NIGHT Referrals: No Primary/Family,Physician [Primary Care Provider] - In 1 week Problem List Clinical Impression: Drug abuse Patient/Caregiver Discharge Instructions Print Language: Hebrew
--- NOTE | 2025-01-13 09:03 | EKG_ITS ---
[facility] Test Date: 2025-01-13 Pat Name: RACHEL PRATT Department: Room: - Gender: Female Build Engineer: : 1990 Requested By: Esperanza Prince Order Number: [id number] Reading MD: Esperanza Prince Measurements Intervals [place] Rate: 98 P: 33 OK: 147 QRS: 56 QRSD: 86 T: 49 QT: 342 QTc: 437 Interpretive Statements SINUS RHYTHM No previous ECG available for comparison /store/S0/[id number]/ecg/[id number].pdf
[2025-01-13 09:22] VITALS: BMI 23.8
--- NOTE | 2025-01-13 09:28 | PC.NURSE ---
PT BROUGHT IN BY [employer] FOR HARM TO SELF. PT WAS TAKEN TO LONG-TERM AND STARTED TO BANG HER HEAD SO SHE WAS BROUGHT HERE FOR HARM TO SELF ON A HOLD. PT IS A/O X4, PT IS COOPERATING AT THIS TIME. PT WAS SEARCHED BY SECURITY. SITTER AT BEDSIDE AND WITH CLOSE TO NURSES STATION.
--- NOTE | 2025-01-13 09:35 | PC.SS ---
Patient is pending Medical clearance and pending Mental health evaluation.
[2025-01-13 09:36] LABS: Basophils # (Auto) 0.1 Thou/mm3 (0.0-0.2); Basophils % (Auto) 1 % (0-2.5); Eosinophils # (Auto) 0.1 Thou/mm3 (0.0-0.5); Eosinophils % (Auto) 2 % (0-10); Hematocrit 36.9 % (36.0-46.0); Hemoglobin 12.2 g/dL (12.0-16.0); Immature Granulocytes Auto 0.02 Thou/mm3 (0.00-0.00); Lymphocytes # (Auto) 1.7 Thou/mm3 (1.0-4.8); Lymphocytes % (Auto) 25 % (10-50); Mean Corpuscular HGB Conc 33.1 g/dl (31.0-37.0); Mean Corpuscular Hemoglobin 28.9 pg (25.0-35.0); Mean Corpuscular Volume 87 fL (80-100); Monocytes # (Auto) 0.7 Thou/mm3 (0.0-0.8); Monocytes % (Auto) 11 % (0-12); Neutrophils # (Auto) 4.0 Thou/mm3 (1.8-7.7); Neutrophils % (Auto) 60 % (37-80); Nucleated Red Blood Cell # 0.00 Thou/mm3 (0.00-0.00); Nucleated Red Blood Cell % 0 /100 WBC (0); Platelet Count 313 Thou/mm3 (140-440); RDW Standard Deviation 41.8 fL (36.4-46.3); Red Blood Count 4.22 Miln/mm3 (4.00-5.20); White Blood Count 6.6 Thou/mm3 (3.6-11.0)
--- NOTE | 2025-01-13 09:37 | PC.SS ---
Addendum entered by Birdie Juárez 01/13/25 16:25: SS follow up note: Patient unable to engage in assessment at this time. Addendum entered by Birdie Juárez 01/13/25 11:50: While the patient was providing a urine sample, patient began exhibiting self harming behaviors, including hitting herself and striking herself in the head. Original Note: Patient is a 34 year-old female who was brought in by -[place] [employer] Officer on a 5150-Hold for Danger to Self. Per officer Juan, patient was running in front of the road way making suicidal statements. Patient will need a mental health evaluation upon medical clearance.
--- NOTE | 2025-01-13 09:40 | PC.NURSE ---
PT WAS GIVEN A SANDWICH, PUDDING AND A JUICE. PT ATE ALL FOOD GIVEN.
[2025-01-13 09:58] LABS: Acetaminophen < 2.0 mcg/mL (10.0-20.0); Alanine Aminotransferase 36 U/L (10-49); Albumin, Serum 4.4 gm/dL (3.5-5.0); Albumin/Globulin Ratio 1.6 (1.2-2.2); Alcohol, Blood Medical < 10.0 mg/dL (0-10.0); Alkaline Phosphatase 90 U/L (46-116); Anion Gap 9 (7-16); Aspartate Amino Transferase 59 U/L (0-34); BUN/Creatinine Ratio 13 Ratio (12-20); Bilirubin,Total 0.6 mg/dL (0.3-1.2); Blood Urea Nitrogen 9 mg/dL (9-23); Calcium 9.2 mg/dL (8.3-10.6); Calcium (Corrected) 9.2 mg/dL (8.5-10.1); Carbon Dioxide 28.1 mMol/L (20.0-31.0); Chloride 105 mMol/L (98-107); Creatinine (Component) 0.7 mg/dL (0.6-1.3); Estimated Creatinine Clearance 91.3 mL/min (>60); Globulin 2.7 gm/dL (2.3-3.5); Glucose 70 mg/dL (74-106); Osmolality,Calculated 279 (275-295); Potassium 3.8 mMol/L (3.4-5.1); Salicylate < 3.0 mg/dL; Sodium 142 mMol/L (136-145); Total Protein 7.1 gm/dL (5.7-8.2); eGFR > 60 See Note
[2025-01-13 10:01] LABS: HCG,Qualitative Serum Negative
--- NOTE | 2025-01-13 10:30 | PC.NURSE ---
PT WAS GIVEN A SANDWICH, PUDDING AND A JUICE. PT ATE ALL FOOD PROVIDED.
--- NOTE | 2025-01-13 11:36 | PC.NURSE ---
PT WAS IN THE RESTROOM, STARTED HITTING HER HEAD AND YELLING AT STAFF. PT WAS TAKEN TO THE ROOM AND LAID ON THE FLOOR AND CONTINUED TO HIT HER HEAD THAT WAS WITNESSED BY MULTIPLE STAFF MEMBERS. STAFF WAS ABLE TO GET PT BACK INTO BED. PT IS CONTINUING TO CRY IN BED.
[2025-01-13 11:53] LABS: Collection Type, Urine Catheter
[2025-01-13 12:02] LABS: Bilirubin,Urine Negative (Negative); Blood,Urine Negative (Negative); Clarity,Urine Clear (Clear/Hazy); Color,Urine Lt-Yellow (Lt Yel-Yel); Culture Indicated,Urine Not Indicated; Glucose, Urine Negative (Negative); Ketones,Urine Negative (Negative); Leukocyte Esterase,Urine Negative (Negative); Nitrite,Urine Negative (Negative); PH,Urine 6.0 (5.0-7.0); Protein,Urine Negative (Neg - Trace); RBC,Urine 1 /hpf (0-3); Specific Gravity,Urine 1.026 (1.001-1.035); Squamous Epithelial Cell,Urine 7 /hpf (0-5); Urobilinogen,Urine Negative mg/dL (0.0-1.0); WBC,Urine < 1 /hpf (0-5)
[2025-01-13 12:07] LABS: Amphetamine/Methamp Scrn,U Positive (Negative); Barbiturate Screen,Urine Negative (Negative); Benzodiazepines Screen,Urine Negative (Negative); Benzoylecgonine Screen, Ur Negative (Negative); Fentanyl Screen,Urine Negative (Negative); Opiate Screen,Urine Negative (Negative); THC Screen,Urine Negative (Negative)
--- NOTE | 2025-01-13 12:17 | PC.NURSE ---
PT MORE RELAXED AND LAYING ON THE GURNEY.
--- NOTE | 2025-01-13 17:00 | PC.NURSE ---
PROVIDED PT WITH ICE WATER AND ORDER A DINNER TRAY.
--- NOTE | 2025-01-13 17:01 | PC.NURSE ---
FRIEND DARIEN CALLED. STATES TO HAVE PT CALL HIM WHEN SHE IS READY FOR TRANSPORT #[phone]
[2025-01-13 17:13] VITALS: BP 130/85; PULSE 112; RESP 19; TEMP 37.3; O2SAT 97
--- NOTE | 2025-01-13 18:12 | PD.EDADDENDU ---
Emergency Room Addendum Addendum Narrative: 1800: Care assumed from Dr. Handley, the previous shift emergency physician. Past medical, surgical, social and family history reviewed. Vitals and home medications reviewed. Results and treatment plan discussed. I will assume the care of the patient at this time and will follow the patient. Please refer to the emergency department record for history and examination from initial visit.
--- NOTE | 2025-01-14 01:02 | PC.NURSE ---
pt is laying down eyes closed, equal and unlabored chest rise. pt is not in distress. no new orders from doctor at this time
--- NOTE | 2025-01-14 04:16 | PD.EDADDENDU ---
Emergency Room Addendum Addendum Narrative: Patient did well throughout my shift. There were no incidences. Patient remains a stable condition.
[2025-01-14 06:25] VITALS: BP 151/96; PULSE 72; RESP 18; TEMP 36.7; O2SAT 97
--- NOTE | 2025-01-14 06:31 | PD.EDADDENDU ---
Emergency Room Addendum Addendum Narrative: 0600: Care assumed from Dr. Sumner, the previous shift emergency physician. Past medical, surgical, social and family history reviewed. Vitals and home medications reviewed. I will assume the care of the patient at this time, pending mental health evaluation and final disposition. Please refer to the emergency department record for history and examination from initial visit.?The following addendum documentation note is intended to reflect any pending information, findings, or radiology results not included in the patient?s initial chart. 9:25a Patient has been evaluated by our social workers and placed on a 5150 hold, pending LPS facility placement. Patient has been accepted for transfer by Dr. Godoy at [facility]. 1350p: EMS here to transfer patient.
[2025-01-14 07:53] VITALS: BP 147/101; PULSE 87; RESP 18; TEMP 36.6; O2SAT 97
--- NOTE | 2025-01-14 09:25 | PC.NURSE ---
I went to pt's room with SS to ask if there is a safety plan, pt refused to speak to any of us. She became very angry and yelling curse words and stating we don't care about her. We explained to her that she needs to speak to us to find out what are her needs and ways of obtaining food she continued to refused. Dr. Handley came into room and asked her questions which pt cont to refuse to answer.
[2025-01-14 10:00] VITALS: BP 115/70; PULSE 84; RESP 19; TEMP 36.2; O2SAT 98
--- NOTE | 2025-01-14 11:13 | PC.SS ---
Addendum entered by Birdie Juárez 01/14/25 11:54: SS follow up note; SS was contacted by Carri from [facility] and informed SS they are able to accept patient. Accepting Dr. Godoy [address]. SS updated patient's nurse. SS set up transportation for patient with [facility] for 1400. Nurse made aware. Original Note: SS follow up note; SS faxed out packet to all [facility] facilities.
[2025-01-14 12:00] VITALS: BP 128/84; PULSE 73; RESP 18; TEMP 36.8; O2SAT 98
[2025-01-14 14:00] VITALS: BP 126/74; PULSE 87; RESP 19; TEMP 37.1; O2SAT 98
--- NOTE | 2025-01-14 14:09 | PC.CM ---
930-MH evaluation was requested by ED staff. Patient was brought into the ED and placed on a hold by [employer]. Hold indicates patient was found walking in the roadway, appeared to be under the influce of drugs. [employer] also indicates the patient had self harming behaviors and was stating she was trying to kill herself. Documentation by staff indicates self harming behaviors were observed yesterday; hitting herself. PLATINUMSMITH made face to face contact with the patient. Reason and role was explained. During the contact, LESLIE Packer was also at bedside. Multiple attempts were made to inquire with the patient about the event that led her to this ED visit and attempt to safety plan with her. Patient's demeanor appeared guarded; refused to engage in assessment and not willing/or unable to formulate safety plan. During the contact patient used foul language, expressed she did not care what happened to her life. Multiple attempts were made to engage the patient on her daily life activities including her ability to seek food, medical needs and housing needs, however the patient would not respond or was not able to engage. Dr. Handley and JAIDEN May also made an attempt to engage patient, however attempts were unsuccessful. At this time 5150 hold will be upheld for psychiatric placement. Advisement was completed with the patient. Patient was offered Rights for Individuals in Mental Health Facilities , however patient refused information. Dr. Handley made aware of hold being upheld and was also in agreement.
--- NOTE | 2025-01-14 14:15 | PC.NURSE ---
Hand off report given to Thao from [facility]. Pts belongings were taken with EMS that trasnported pt to clinic. Pt was aware of transfer, her only request was for a sandwich. [place] provided. Pt shows no s/s of distress noted.
== END 2025-01-14 14:10 ==
LOC: SERX 10:07
PROVIDERS: Emergency Provider Emergency Medicine
DX: Z04.6 Encounter for general psychiatric examination, requested by authority (principal); F19.10 Other psychoactive substance abuse, uncomplicated; R45.1 Restlessness and agitation; F31.9 Bipolar disorder, unspecified; F43.10 Post-traumatic stress disorder, unspecified; Z59.00 Homelessness unspecified
CPT/HCPCS: 36415; 80053; 80307; 80320; 80329; 81001; 84703; 85025; 93005; 96127; 99284; A9270; G0480

== ENCOUNTER 2025-02-05 16:40 | Emergency (ER) | payer MEDICAID, SELFPAY ==
--- NOTE | 2025-02-05 16:41 | PC.NURSE ---
Patient to er BIB [employer] officer Vito for SI. Per bystanders called ppd, do to patient rolling around in the road on [address] and stating she wanted to . Currently, patient thrashing around in gurney, removed gurney and placed mattress on floor with sheet for patient safety. Patient not answering all questions appropriately, however, obeying commands. Patient disheveled, poor hygiene, skin is warm dry and pink, and soiled. Patient grabbing the side of her head. When asking patient if she has pain, patient not answering question, continues to ramble, some garbled speech, flight of ideas. 1:1 sitter placed for patient safety. Chart up for provider to see patient.
[2025-02-05 16:52] VITALS: BMI 25.4
[2025-02-05 16:53] VITALS: BP 119/86; PULSE 115; RESP 18; TEMP 37.2; O2SAT 97
--- NOTE | 2025-02-05 17:44 | PD.EDPSYCH ---
ED Psych RME/HPI General Chief Complaint: Suicidal Stated Complaint: HOLD Time Seen by Provider: 02/05/25 16:52 Arrival date/time: 02/05/25 16:40 RME / HPI RME / HPI Narrative: 34 year old female with history of PTSD, bipolar disorder, depression, meth abuse, and homelessness presents to the ED BIB [facility] on a 5150 hold today. Per officers, they received multiple calls reporting the patient was rolling in the middle of the roadway. State when they made contact with the patient she reported feeling suicidal. In the ED, patient is behaving erratically and not answering any questions. Related Data Home Medications ?Medication ?Instructions ?Recorded ?Confirmed hydroxyzine pamoate 50 mg capsule 50 mg PO BID #0 caps 10/17/15 09/27/24 (Vistaril) Held on 09/27/24. Instructions: Resume on 10/28/24. lamotrigine 150 mg tablet 150 mg PO BID #0 tabs 10/17/15 09/27/24 (Lamictal) Held on 09/27/24. Instructions: Resume on 10/28/24. venlafaxine 75 mg capsule,extended 75 mg PO QDAY ##0 10/17/15 09/27/24 release 24 hr (Effexor XR) Held on 09/27/24. Instructions: Resume on 10/28/24. zolpidem 10 mg tablet (Ambien) 10 mg PO HS #0 tabs 10/17/15 09/27/24 Held on 09/27/24. Instructions: Resume on 11/27/24. bupropion HCl 100 mg tablet,12 hr 100 mg PO HS 01/13/25 01/13/25 sustained-release haloperidol 5 mg tablet 5 mg PO HS 01/13/25 01/13/25 trazodone 50 mg tablet 50 mg PO HS 01/13/25 01/13/25 Previous Rx's ?Medication ?Instructions ?Recorded lorazepam 1 mg tablet 1 mg PO Q6HR PRN ANXIETY #10 tabs 10/17/15 Held on 09/27/24. Instructions: Resume on 10/28/24. Allergies Allergy/AdvReac Type Severity Reaction Status Date / Time No Known Allergies Allergy Verified 01/13/25 10:13 Review of Systems Review of Systems ROS Unobtainable: unobtainable due to mental status Past Medical History Past Medical History CARDIAC: Negative Congestive Heart Failure RESPIRATORY: Negative Chronic Obstructive Pulmonary Disease (COPD) GENITOURINARY: Negative Renal Disease ENDOCRINE: Negative Diabetes Mellitus Type 1 or Diabetes Mellitus Type 2 PSYCHO/SOCIAL: Positive Bipolar Disorder, Depression, Anxiety, Self-Mutilation and Post Traumatic Stress Disorder Social History SMOKING STATUS: Current every day smoker SUBSTANCE USE: marijuana and methamphetamine ED Exam Narrative Physical exam: GENERAL APPEARANCE:? Awake, moving erratically, well-developed, well-nourished HEENT: normocephalic, atraumatic NECK: supple LUNGS: no respiratory distress, normal effort HEART: Tachycardic, good peripheral perfusion ABDOMEN: non distended EXTREMITIES:? atraumatic NEUROLOGIC: awake; alert and oriented x4; cranial nerves II-XII grossly intact PSYCHIATRIC: Moving erratically SKIN: warm, dry, normal color; no rashes Course Quality Measures none Orders Category Date Time Status 179 Psychiatric Hold NOW Care 02/05/25 18:30 Ordered Consult Manager Intern NOW Care 02/05/25 20:05 Completed One-to-one observation NOW Care 02/05/25 17:26 Completed Suicide precautions NOW Care 02/05/25 17:05 Completed Diet Regular Diet 02/06/25 Breakfast Active Acetaminophen Stat Lab 02/05/25 18:49 Completed Alcohol, Blood Medical Stat Lab 02/05/25 18:49 Completed CBC Stat Lab 02/05/25 18:49 Completed CMP [Comprehensive Metabolic Panel] Stat Lab 02/05/25 18:49 Completed Drug Screen,Urine Stat Lab 02/05/25 21:17 Completed HCG,Qualitative Serum Stat Lab 02/05/25 18:49 Completed Salicylate Stat Lab 02/05/25 18:49 Completed DiphenhydrAMINE [Benadryl] Med 02/05/25 20:33 Discontinued 25 mg PO X1 ONE LORazepam [Ativan] Med 02/05/25 20:33 Discontinued 2 mg PO X1 ONE OLANZapine [ZyPREXA] Med 02/05/25 18:49 Discontinued 5 mg PO X1 ONE Vital Signs Vital signs: Vital Signs Temperature 99 F 02/05/25 16:53 Pulse Rate 115 H 02/05/25 16:53 Respiratory Rate 18 02/05/25 16:53 Blood Pressure 119/86 H 02/05/25 16:53 Pulse Oximetry (%) 97 02/05/25 16:53 Oxygen Delivery Method Room Air 02/05/25 16:53 Pulse ox is 97% on room air which is adequate. Psych MDM Narrative MDM Narrative:: IMargaret, am scribing for and in the presence of Dr. Wong. 1800: Care signed out to Dr. Handley pending medical clearance for mental health evaluation. Patient data External records reviewed:: [facility] previous records Clinical information provided by:: law enforcement Social determinants that could affect healthcare access:: mental health Patient has the following chronic illnesses:: PTSD, bipolar disorder, depression, meth abuse, and homelessness How is presenting disease/condition affected by chronic disease/condition?: exacerbated by Evaluation data The following diagnostics were reviewed and interpreted by me:: other (specify) (No diagnostics ordered ) Lab and/or radiology exams considered but not ordered:: None Interpretation Summary: No diagnostics ordered Medications / Prescriptions Medications or Prescriptions considered but not ordered:: None Medication administrations:: Medication Administration History Discontinued Medications Diphenhydramine HCl (Diphenhydramine 25 Mg Capsule) 25 mg PO X1 ONE Stop: 02/05/25 20:34 Last Admin: 02/05/25 20:54 Dose: 25 mg Documented By: EE Lorazepam (Lorazepam 0.5 Mg Tablet) 2 mg PO X1 ONE Stop: 02/05/25 20:34 Last Admin: 02/05/25 20:54 Dose: 2 mg Documented By: EE Olanzapine (Olanzapine 5 Mg Tablet) 5 mg PO X1 ONE Stop: 02/05/25 18:50 Last Admin: 02/05/25 19:34 Dose: 5 mg Documented By: SF See above Consultations Consultation(s) initiated? (list below): No Diagnosis Psych Differential Diagnosis: acute psychosis, chronic schizophrenia, suicidal ideation, bipolar disorder, depression, drug-induced psychotic disorder and acute anxiety Most likely diagnosis given after review of the tests above:: Acute psychosis Admission Indicated Admission indicated?: not indicated Explain why admission is indicated or not indicated:: Care signed out pending medical clearance for mental health evaluation. Admission Request Was there a request for admission?: No Disposition Plan Disposition Plan: other (specify) (Signed out pending final disposition ) [facility] Prescriptions/Referrals Prescriptions/Med Rec: No Action lamotrigine [Lamictal] 150 MG tablet 150 mg PO BID Qty: 0 venlafaxine [Effexor XR] 75 MG capsule,extended release 24hr 75 mg PO QDAY Qty: 0 hydroxyzine pamoate [Vistaril] 50 MG capsule 50 mg PO BID Qty: 0 zolpidem [Ambien] 10 MG tablet 10 mg PO HS Qty: 0 lorazepam 1 MG tablet 1 mg PO Q6HR PRN (Reason: ANXIETY) Qty: 10 0RF haloperidol 5 mg tablet 5 mg PO HS Patient Comments: TAKE 1 TABLET BY MOUTH EVERY NIGHT bupropion HCl 100 mg tablet sustained-release 12 hr 100 mg PO HS Patient Comments: TAKE 1 TABLET BY MOUTH EVERY NIGHT trazodone 50 mg tablet 50 mg PO HS Patient Comments: TAKE 1 TABLET BY MOUTH EVERY NIGHT Referrals: No Primary/Family,Physician [Primary Care Provider] - In 1 week Problem List Clinical Impression: Acute psychosis, Methamphetamine use Patient/Caregiver Discharge Instructions Print Language: French Stand Alone Forms: [facility]ena Award Info., Patient Portal Info Letter
--- NOTE | 2025-02-05 18:36 | EDNOTE_ITS ---
Emergency Room Addendum <Margareth Guardado - Last Filed: 02/05/25 20:04> Addendum Narrative: 1800: Care assumed from Dr. Wong (emergency physician). Past medical, surgical, social and family history reviewed. Vitals and home medications reviewed. Results and treatment plan discussed. I will assume the care of the patient at this time and will follow the patient, pending laboratory results for medical clearance and psychiatric evaluation (1798). The following addendum documentation note is intended to reflect any pending information, findings, or radiology results not included in the patient?s initial chart by the previous shift scribe. Please refer to the emergency department record for history and examination. The patient had access and provided personal hygiene, shower, food, water, and daily medications. 2003: Patient has been medically cleared. Pending psychiatric evaluation in the morning. 0600: Care assumed by Dr. Nettles (emergency physician). Past medical, surgical, social and family history reviewed. Vitals and home medications reviewed. Results and treatment plan discussed. They will assume the care of the patient at this time and will follow the patient, pending psychiatric evaluation. <Esperanza Handley MD - Last Filed: 02/05/25 20:05> Addendum Narrative: 1800: Care assumed from Dr. Wong (emergency physician). Past medical, surgical, social and family history reviewed. Vitals and home medications reviewed. Results and treatment plan discussed. I will assume the care of the patient at this time and will follow the patient, pending laboratory results for medical clearance and psychiatric evaluation (1798). The following addendum documentation note is intended to reflect any pending information, findings, or radiology results not included in the patient?s initial chart by the previous shift scribe. Please refer to the emergency department record for history and examination. The patient had access and provided personal hygiene, shower, food, water, and daily medications. On my evaluation and patient responding to internal stimuli, provided me dications for agitation and psychosis. Otherwise hemodynamically stable and not in any distress. Labs leukocytosis 14, no left shift, hemoglobin 11.3 normocytic, near patient's baseline. No acute significant metabolic disturbance patient is not , Tylenol salicylate level unremarkable, alcohol level negative. Patient is medically cleared for social work evaluation. I have her on a 1798. Patient is danger to self.
[2025-02-05 18:59] LABS: Basophils # (Auto) 0.1 Thou/mm3 (0.0-0.2); Basophils % (Auto) 1 % (0-2.5); Eosinophils # (Auto) 0.2 Thou/mm3 (0.0-0.5); Eosinophils % (Auto) 1 % (0-10); Hematocrit 34.8 % (36.0-46.0); Hemoglobin 11.3 g/dL (12.0-16.0); Immature Granulocytes Auto 0.06 Thou/mm3 (0.00-0.00); Lymphocytes # (Auto) 1.8 Thou/mm3 (1.0-4.8); Lymphocytes % (Auto) 13 % (10-50); Mean Corpuscular HGB Conc 32.5 g/dl (31.0-37.0); Mean Corpuscular Hemoglobin 28.9 pg (25.0-35.0); Mean Corpuscular Volume 89 fL (80-100); Monocytes # (Auto) 1.8 Thou/mm3 (0.0-0.8); Monocytes % (Auto) 13 % (0-12); Neutrophils # (Auto) 10.0 Thou/mm3 (1.8-7.7); Neutrophils % (Auto) 72 % (37-80); Nucleated Red Blood Cell # 0.00 Thou/mm3 (0.00-0.00); Nucleated Red Blood Cell % 0 /100 WBC (0); Platelet Count 394 Thou/mm3 (140-440); RDW Standard Deviation 43.8 fL (36.4-46.3); Red Blood Count 3.91 Miln/mm3 (4.00-5.20); White Blood Count 14.0 Thou/mm3 (3.6-11.0)
[2025-02-05 19:21] LABS: Acetaminophen < 2.0 mcg/mL (10.0-20.0); Alanine Aminotransferase 42 U/L (10-49); Albumin, Serum 4.0 gm/dL (3.5-5.0); Albumin/Globulin Ratio 1.3 (1.2-2.2); Alcohol, Blood Medical < 3.0 mg/dL (0-10.0); Alkaline Phosphatase 106 U/L (46-116); Anion Gap 9 (7-16); Aspartate Amino Transferase 60 U/L (0-34); BUN/Creatinine Ratio 14 Ratio (12-20); Bilirubin,Total 0.6 mg/dL (0.3-1.2); Blood Urea Nitrogen 10 mg/dL (9-23); Calcium 9.4 mg/dL (8.3-10.6); Calcium (Corrected) 9.4 mg/dL (8.5-10.1); Carbon Dioxide 30.2 mMol/L (20.0-31.0); Chloride 102 mMol/L (98-107); Creatinine (Component) 0.7 mg/dL (0.6-1.3); Estimated Creatinine Clearance 92.7 mL/min (>60); Globulin 3.1 gm/dL (2.3-3.5); Glucose 119 mg/dL (74-106); Osmolality,Calculated 281 (275-295); Potassium 4.3 mMol/L (3.4-5.1); Salicylate < 3.0 mg/dL; Sodium 141 mMol/L (136-145); Total Protein 7.1 gm/dL (5.7-8.2); eGFR > 60 See Note
[2025-02-05 19:22] LABS: HCG,Qualitative Serum Negative
[2025-02-05 19:38] VITALS: BP 125/73; PULSE 82; RESP 20; O2SAT 97
[2025-02-05 21:42] LABS: Amphetamine/Methamp Scrn,U Positive (Negative); Barbiturate Screen,Urine Negative (Negative); Benzodiazepines Screen,Urine Negative (Negative); Benzoylecgonine Screen, Ur Negative (Negative); Fentanyl Screen,Urine Negative (Negative); Opiate Screen,Urine Negative (Negative); THC Screen,Urine Negative (Negative)
[2025-02-06 08:00] VITALS: BP 134/90; PULSE 91; RESP 19; TEMP 36.7; O2SAT 97
--- NOTE | 2025-02-06 08:11 | PC.SS ---
Monica REYES and Birdie NELSON Attempted to meet face-to face with patient, however patient is unable to engage in assessment due to her inability to provide any information at this time. Monica REYES and Birdie NELSON discussed referring patient with Shakila REYES and determined that at this time patient does meet criteria for a 5150 hold,pending Psychiatric placement. Birdie NELSON discussed case, with Dr. Nettles who is in agreement with plan. SS also updated patients nurse, Rose Mary.
--- NOTE | 2025-02-06 08:15 | PC.SS ---
Addendum entered by Birdie Juárez 02/06/25 10:09: SS follow up note; SS set up transportation for patient with Amanda from [facility]. ETA will be for 1300. SS updated patient's nurse Rose Mary. Addendum entered by Birdie Juárez 02/06/25 09:32: SS follow up note; Patient's nurse, Rose Mary was contacted by [facility] from [facility] with acceptance from Dr. Ingram. [facility] requesting COVID test before setting up transportation. SS will fax COVID test once available. Original Note: SS sent out packet to all LPS facilites. SS contacted [facility] and [facility] and at the time they are reviewing.
--- NOTE | 2025-02-06 09:43 | PD.EDADDENDU ---
Emergency Room Addendum Addendum Narrative: Patient signed out to me by Dr. Handley at 6 AM pending psych evaluation. Patient ended up being placed on a hold and was accepted to facility for further treatment. Stable for transfer at this time. See previous ED notes for further. Diagnosis: Altered mental state, suicidal ideation, history of bipolar disorder, history of depression, history of methamphetamine abuse, history of PTSD. Disposition: Transfer to psych facility
[2025-02-06 12:21] VITALS: BP 156/83; PULSE 94; RESP 18; TEMP 36.6; O2SAT 96
== END 2025-02-06 13:14 ==
PROVIDERS: Emergency Medicine; Emergency Provider Family Medicine
DX: Z04.6 Encounter for general psychiatric examination, requested by authority (principal); F23 Brief psychotic disorder; F15.10 Other stimulant abuse, uncomplicated; R45.1 Restlessness and agitation; R45.851 Suicidal ideations; F31.9 Bipolar disorder, unspecified; R41.82 Altered mental status, unspecified; Z59.00 Homelessness unspecified; Z75.1 Person awaiting admission to adequate facility elsewhere
CPT/HCPCS: 36415; 80053; 80307; 80320; 80329; 84703; 85025; 87635; 96127; 99284; A9270; G0480